=== PATIENT | male | born 1985 | race Caucasian/White ===

== ENCOUNTER 2020-12-14 18:13 | Emergency (ER) | payer MEDICAID, SELFPAY ==
--- NOTE | ~2020-12-14 | XR_ITS ---
EXAMINATION: RIGHT WRIST CLINICAL INFORMATION: Swelling COMPARISON: Right hand August 08, 2013 TECHNIQUE: 4 views right wrist FINDINGS: No fracture. No dislocation. Bone and joint are normal. XR/XR hand wrist RT IMPRESSION: Normal right wrist.
[2020-12-14 18:17] VITALS: BP 139/73; PULSE 96; RESP 18; TEMP 37.3; O2SAT 97; BMI 29.0
[2020-12-14] MEDS: cephALEXin 500 MG CAPSULE PO (20:59)
[2020-12-14] MEDS: Diphth,Pertus(ACell),Tet Adult 0.5 ML SYRINGE IM (21:00)
--- NOTE | 2020-12-14 21:17 | ED_ITS ---
HPI - Skin/Abscess/Foreign Bdy General Chief complaint: Skin/Abscess/Foreign Body Stated complaint: bacteria on hand Time Seen by Provider: 12/14/20 20:43 History of Present Illness HPI narrative: Patient complains of pain redness and swelling to the back of the right hand for several days, he says there were small pimples on the back of his hand he squeezed them and now it got swollen and is draining pus he denies any fever or chills Related Data Previous Rx's Medication Instructions Recorded cephalexin 500 mg tablet 500 mg PO QID 7 Days #28 tab 12/14/20 cephalexin 500 mg tablet 500 mg PO QID 7 Days #28 tab 12/14/20 doxycycline hyclate 100 mg capsule 100 mg PO BID 7 Days #14 cap 12/14/20 doxycycline hyclate 100 mg capsule 100 mg PO BID 7 Days #14 cap 12/14/20 ibuprofen 600 mg tablet 600 mg PO Q6H PRN #20 tab 12/14/20 ibuprofen 600 mg tablet 600 mg PO Q6H PRN #20 tab 12/14/20 oxycodone 5 mg tablet 5 mg PO Q6H PRN #7 tab 12/14/20 oxycodone 5 mg tablet 5 mg PO Q6H PRN #7 tab 12/14/20 Allergies Allergy/AdvReac Type Severity Reaction Status Date / Time SEAFOOD Allergy Unknown HIVES Uncoded 01/12/20 16:49 Review of Systems Review of Systems: Positive for right hand redness pain and swelling Negatives are no fever no chills no dizziness no weakness no headache no neck pain no shortness of breath no numbness weakness or tingling Yes all other systems are reviewed and are negative [facility] Past Medical History Source: nursing notes reviewed Social History Social History Advance Directives: No Physical Exam Vital Signs: Vital Signs: Last Vital Signs Temp 99.1 F 12/14/20 18:17 Pulse 96 12/14/20 18:17 Resp 18 12/14/20 18:17 BP 139/73 12/14/20 18:17 Pulse Ox 97 12/14/20 18:17 Body Mass Index 29.0 General appearance is no acute distress Head is normocephalic atraumatic Neck is supple Respiratory no distress The right hand has dorsal swelling redness and tenderness with pus oozing from a small wound proximal to the 5th metacarpal, there is full range of motion in the wrist and in the fingers, no limit to extension or flexion and neurovascular intact distal Other extremities normal Neuro no focal motor or sensory deficits Course Course Course Narrative: Case was discussed with attending physician juliana who saw and examined the patient He agreed that wound is draining and there is no obvious fluctuance and there was no need for further incision and drainage, there is no evidence of septic arthritis in the wrist or the hand, no evidence of tenosynovitis, no fever and plan is for patient to do frequent warm soaks to draw out the pus, and antibiotics and recheck in 2 days Patient is discharged Discharge Plan Discharge Clinical Impression: Cellulitis Patient Disposition: Home, Self-Care Additional Instructions: The infection on the back of your hand is draining pus Soak frequently in warm water with Epsom salts to help bring out the pus Return to the ER in 2 days for recheck, or hand Dr. Del Angel office if they are available But wound should be recheck either here in the ER or at Malia Mcintosh's office in 2 days Return to the ER any time for increased pain and swelling, spreading redness, red stripe up your arm, fever, any worse condition or any concerns Prescriptions: New doxycycline hyclate 100 mg capsule 100 mg PO BID 7 Days Qty: 14 RF: 0 cephalexin 500 mg tablet 500 mg PO QID 7 Days Qty: 28 RF: 0 oxycodone 5 mg tablet 5 mg PO Q6H PRN (Reason: pain) Qty: 7 RF: 0 ibuprofen 600 mg tablet 600 mg PO Q6H PRN (Reason: pain) Qty: 20 RF: 0 doxycycline hyclate 100 mg capsule 100 mg PO BID 7 Days Qty: 14 RF: 0 cephalexin 500 mg tablet 500 mg PO QID 7 Days Qty: 28 RF: 0 ibuprofen 600 mg tablet 600 mg PO Q6H PRN (Reason: pain) Qty: 20 RF: 0 oxycodone 5 mg tablet 5 mg PO Q6H PRN (Reason: pain) Qty: 7 RF: 0 Referrals: Zainab Del Angel MD [Physician] - 2 days (Right dorsal hand infection for wound check) Stand Alone Forms: Work/School Release Interventions: ED Discharge Assessment Last Done: 12/14/20 21:37 Discharge Date/Time: 12/14/20 21:40
== END 2020-12-14 21:40 | disposition home or self-care (01) ==
PROVIDERS: Emergency Provider Emergency Medicine
DX: L03.113 Cellulitis of right upper limb (principal); M79.641 Pain in right hand
CPT/HCPCS: 73110; 73130; 87071; 87077; 87186; 87205; 90471; 90715; 99284

== ENCOUNTER 2020-12-27 18:04 | Emergency (ER) | payer MEDICAID, SELFPAY ==
[2020-12-27 18:58] LABS: COVID-19 Test Positive (Negative)
[2020-12-27 19:16] VITALS: BP 128/63; PULSE 88; RESP 18; TEMP 37.1; O2SAT 99; BMI 28.0
--- NOTE | 2020-12-27 19:52 | ED_ITS ---
HPI - URI/Sore Throat General Chief Complaint: Upper Respiratory Symptoms Stated Complaint: covid like Time Seen by Provider: 12/27/20 19:50 Source: patient Mode of arrival: ambulatory Limitations: no limitations History of Present Illness HPI Narrative: Patient with fever low-grade cough tiredness for last 3 days other family member positive for COVID patient not vaccinated against COVID-19 denies any shortness of breath saturating 99% on room air Related Data Previous Rx's Medication Instructions Recorded cephalexin 500 mg tablet 500 mg PO QID 7 Days #28 tab 12/14/20 cephalexin 500 mg tablet 500 mg PO QID 7 Days #28 tab 12/14/20 doxycycline hyclate 100 mg capsule 100 mg PO BID 7 Days #14 cap 12/14/20 doxycycline hyclate 100 mg capsule 100 mg PO BID 7 Days #14 cap 12/14/20 ibuprofen 600 mg tablet 600 mg PO Q6H PRN #20 tab 12/14/20 ibuprofen 600 mg tablet 600 mg PO Q6H PRN #20 tab 12/14/20 oxycodone 5 mg tablet 5 mg PO Q6H PRN #7 tab 12/14/20 oxycodone 5 mg tablet 5 mg PO Q6H PRN #7 tab 12/14/20 Allergies Allergy/AdvReac Type Severity Reaction Status Date / Time SEAFOOD Allergy Unknown HIVES Uncoded 01/12/20 16:49 Review of Systems Review of Systems: Yes all other systems are reviewed and are negative [facility] Past Medical History Medical History Hepatitis Latent tuberculosis Social History Social History Advance Directives: No Physical Exam Vital Signs: Vital Signs: Last Vital Signs Temp 98.7 F 12/27/20 19:16 Pulse 88 12/27/20 19:16 Resp 18 12/27/20 19:16 BP 128/63 12/27/20 19:16 Pulse Ox 99 12/27/20 19:16 Body Mass Index 28.0 Appearance: Alert. Oriented X3. No acute distress. ENT: Pharynx normal. Oral Mucosa moist Neck: Normal inspection. Neck supple. CVS: Normal heart rate and rhythm. Pulses normal. Respiratory: No respiratory distress. Equal air entry bilateral, no wheezing/rales/rhonchi Abdomen: Soft and nontender. Skin: Skin warm and dry. Normal skin color. Normal skin turgor. Extremities: No lower extremity edema. No calf tenderness Neuro: Oriented X 3. MDM - URI/Sore Throat Lab Data Attestation: I reviewed the patient's lab results. Labs: Lab Results 12/27/20 Range/Units 18:40 COVID-19 (DEBBI) Positive A (Negative) COVID-19 Clin Com See Note Discharge Plan Discharge Clinical Impression: COVID-19 Patient Disposition: Home, Self-Care Instructions: COVID-19 (Coronavirus Disease 2019) (ED) Additional Instructions: Self isolate as advised for 2 weeks Drink plenty of fluids Tylenol for fever and pain Prescriptions: No Action doxycycline hyclate 100 mg capsule 100 mg PO BID 7 Days Qty: 14 RF: 0 cephalexin 500 mg tablet 500 mg PO QID 7 Days Qty: 28 RF: 0 oxycodone 5 mg tablet 5 mg PO Q6H PRN (Reason: pain) Qty: 7 RF: 0 ibuprofen 600 mg tablet 600 mg PO Q6H PRN (Reason: pain) Qty: 20 RF: 0 doxycycline hyclate 100 mg capsule 100 mg PO BID 7 Days Qty: 14 RF: 0 cephalexin 500 mg tablet 500 mg PO QID 7 Days Qty: 28 RF: 0 ibuprofen 600 mg tablet 600 mg PO Q6H PRN (Reason: pain) Qty: 20 RF: 0 oxycodone 5 mg tablet 5 mg PO Q6H PRN (Reason: pain) Qty: 7 RF: 0 Interventions: ED Discharge Assessment Last Done: 12/27/20 20:08 Discharge Date/Time: 12/27/20 20:11
== END 2020-12-27 20:11 | disposition home or self-care (01) ==
PROVIDERS: Emergency Provider Internal Medicine
DX: U07.1 COVID-19 (principal); R05 Cough; Z79.899 Other long term (current) drug therapy
CPT/HCPCS: 36415; 87635; 99283

== ENCOUNTER 2021-06-28 16:31 | Emergency (ER) | payer MEDICAID, SELFPAY ==
--- NOTE | ~2021-06-28 | CT_ITS ---
EXAMINATION: CT head/brain wo con CLINICAL INFORMATION: Reason for Exam confused, altered, strange behavior COMPARISON: CT brain 08/08/2013 TECHNIQUE: Contiguous axial imaging was performed from the skull base to vertex without intravenous contrast. Sagittal and coronal reformatted images were obtained. This CT examination was performed using dose optimization techniques as appropriate, variously including the following: * Automated exposure control * Adjustment of mA and/or kV according to patient size (this includes techniques or standardized protocols for targeted exams where dose is matched to indication/reason for exam; i.e. extremities or head) Use of iterative reconstruction technique DLP: 677 mGy-cm FINDINGS: No acute osseous or soft tissue abnormality. The mastoid air cells and visualized portions of the paranasal sinuses are well aerated. There is no evidence of acute intracranial hemorrhage or territorial infarction. No abnormal mass effect or midline shift is seen. [place] to white matter differentiation is well preserved. No extra-axial fluid collections are identified. No hydrocephalus. CT/CT head/brain wo con IMPRESSION: 1. No acute intracranial abnormality.
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
[2021-06-28 17:14] VITALS: BP 111/84; PULSE 105; RESP 18; TEMP 37.4; O2SAT 100; BMI 23.3
[2021-06-28 17:39] LABS: COVID-19 Test Negative (Negative)
[2021-06-28] MEDS: Activated charcoaL 50 GM/240 ML ORAL.SUSP PO (17:39)
[2021-06-28 18:03] LABS: MANUAL DIFF FLAG NO
[2021-06-28 18:06] LABS: Basophils Absolute Auto 0.1 X10*3/uL (0.0-0.2); Basophils Percent Auto 0.6 % (0-2); Eosinophils Absolute Auto 0.1 X10*3/uL (0.0-0.4); Hematocrit 38.7 % (42.0-52.0); Hemoglobin 13.4 g/dl (14.0-18.0); Imm Gran Abs Auto 0.02 X10*3/uL (0.00-0.03); Imm Gran Pct Auto 0.3 % (0.0-0.4); Lymphocytes Absolute Auto 2.9 X10*3/uL (1.2-4.9); Lymphocytes Percent Auto 37.5 % (20-40); Mean Corpuscular HGB Conc 34.6 g/dl (31.0-36.0); Mean Corpuscular Hemoglobin 29.8 pg (27.0-33.0); Mean Platelet Volume 9.1 fL (9.4-12.4); Monocytes Absolute Auto 0.6 X10*3/uL (0.1-1.2); Monocytes Percent Auto 8.1 % (2-11); Neutrophils Percent Auto 52.5 % (45-73); Platelet Count 262 X10*3/uL (160-400); Red Cell Distribution Width 11.9 % (11.0-16.0); White Blood Count 7.7 X10*3/uL (4.8-10.8)
[2021-06-28 18:13] LABS: INTERNATIONAL NORM RATIO 1.2 (0.9-1.1); Prothrombin Time 13.4 SEC (9.9-13.0)
[2021-06-28] MEDS: Phytonadione (Vit K1) Oral 10 MG/ML AMPUL 5 MG PO (18:19)
[2021-06-28 18:22] LABS: Ethanol < 10 mg/dL
[2021-06-28 18:25] LABS: Acetaminophen LAB < 1 mcg/mL (<30); Alanine Aminotransferase 51 U/L (0-40); Albumin Level 4.7 g/dL (3.5-5.0); Alkaline Phosphatase 80 U/L (39-117); Anion Gap 14 (12-20); Aspartate Amino Transferase 34 U/L (5-37); Bilirubin Direct 0.4 mg/dL (0.0-0.5); Bilirubin Total 0.9 mg/dL (0.0-1.0); Blood Urea Nitrogen 21 mg/dL (9-16); Carbon Dioxide 26 mmol/L (22-29); Chloride 100 mmol/L (96-108); Creatinine Clr Calc Pharmacy 101.2; Estimated Glomerular Filt Rate > 60; Glucose Random 69 mg/dL (60-115); Magnesium 2.4 mg/dL (1.6-2.6); Potassium 3.9 mmol/L (3.3-5.1); Salicylate < 5.0 mg/dL (15-30); Sodium 136 mmol/L (135-145)
[2021-06-28] MEDS: LORazepam 1 MG TABLET 2 MG PO (18:32)
[2021-06-28 19:00] LABS: Appearance Urine CLEAR; Color Urine YELLOW; Glucose Urine UA NEG (NEG); Leukocyte Esterase Urine NEG (NEG); Nitrite Urine NEG (NEG); Specific Gravity - Urine 1.015 (1.005-1.025); Urine Blood NEG (NEG); Urine Ketones 15 MG/DL (NEG); Urine Protein NEG (NEG-TRACE)
[2021-06-28 19:10] LABS: Amphetamine Screen Urine Not Detected (Not Detect); Barbiturates, Urine Not Detected (Not Detect); Benzodiazepines Screen Urine Not Detected (Not Detect); Cannabinoid Screen Urine POSITIVE (Not Detect); Cocaine Screen Urine POSITIVE (Not Detect); Fentanyl, urine POSITIVE (Not Detect); Opiate Screen Urine POSITIVE (Not Detect); Phencyclidine Screen Urine Not Detected (Not Detect)
[2021-06-28] MEDS: Ondansetron ODT 4 MG TAB.RAPDIS TRANSLINGU (20:26)
[2021-06-28 21:49] VITALS: BP 101/64; PULSE 77; RESP 18; O2SAT 100
== END 2021-06-28 22:00 | disposition left against medical advice (07) ==
PROVIDERS: Physician Assistant; Emergency Provider Emergency Medicine Emergency Medical Services
DX: F14.150 Cocaine abuse with cocaine-induced psychotic disorder with delusions (principal); F11.19 Opioid abuse with unspecified opioid-induced disorder; F12.19 Cannabis abuse with unspecified cannabis-induced disorder; Z20.822 Contact with and (suspected) exposure to COVID-19; R41.82 Altered mental status, unspecified; Z79.899 Other long term (current) drug therapy
CPT/HCPCS: 36415; 70450; 80048; 80076; 80143; 80179; 80307; 81003; 82077; 83735; 85025; 85610; 85730; 87635; 99283; 99291

== ENCOUNTER 2021-06-29 15:58 | Inpatient (IN) | payer OTHER, MEDICAID, SELFPAY ==
--- NOTE | ~2021-06-29 | CT_ITS ---
EXAMINATION: CT HEAD WITHOUT CONTRAST CLINICAL INFORMATION: Altered mental status. COMPARISON: CT head from 06/28/2021. TECHNIQUE: Contiguous axial imaging was performed from the skull base to vertex without intravenous administration of contrast. This CT examination was performed using dose optimization techniques as appropriate, variously including the following: *Automated exposure control. *Adjustment of mA and/or kV according to patient size (this includes techniques or standardized protocols for targeted exams where dose is matched to indication/reason for exam; i.e. extremities or head). *Use of iterative reconstruction technique. DLP: 715 mGy-cm FINDINGS: There is no evidence of acute intracranial hemorrhage or edematous territorial infarction. There is no abnormal attenuation within the brain parenchyma. Dowell-white matter differentiation is preserved. The ventricles are normal in size and configuration. No evidence for obstructive hydrocephalus. No abnormal mass effect or midline shift. No extra-axial fluid collections. No acute soft tissue or osseous abnormalities. Mild mucosal thickening of the paranasal sinuses. The mastoid air cells and middle ear cavities are clear. CT/CT head/brain wo con IMPRESSION: No evidence of acute intracranial hemorrhage or edematous territorial infarction.
--- NOTE | 2021-06-29 16:14 | ED.PSYCH ---
HPI - Psych General Chief Complaint: ETOH/Substance Use Stated Complaint: SUBSTANCE ABUSE,COMBATIVE Time Seen by Provider: 06/29/21 16:06 Source: EMS and RN notes reviewed Mode of arrival: EMS Limitations: no limitations History of Present Illness HPI Narrative: This is a 36-year-old male past medical history significant for polysubstance abuse presenting to the emergency department via ambulance with police and EMS. Patient was and cough when he came in as he was combative when he was found. Bystander called 911, he was found outside, crawling around in this no, not making sense, appearing to be under the influence of drugs. According to EMS patient mentioned that he gave himself Narcan. And that he has taken a lot of drugs. It was not reported that paraphernalia was found around him. Patient is unable to give me a history as he is most likely under the influence of drugs. He is making noises, rolling around in the bed, squirming around. Not answering any of my questions. At this time I am unable to obtain an accurate review of systems Onset (ago): unknown History of same: Yes Relieving factors: none Exacerbating factors: none Related Data Previous Rx's Medication Instructions Recorded cephalexin 500 mg tablet 500 mg PO QID 7 Days #28 tab 12/14/20 cephalexin 500 mg tablet 500 mg PO QID 7 Days #28 tab 12/14/20 doxycycline hyclate 100 mg capsule 100 mg PO BID 7 Days #14 cap 12/14/20 doxycycline hyclate 100 mg capsule 100 mg PO BID 7 Days #14 cap 12/14/20 ibuprofen 600 mg tablet 600 mg PO Q6H PRN #20 tab 12/14/20 ibuprofen 600 mg tablet 600 mg PO Q6H PRN #20 tab 12/14/20 oxycodone 5 mg tablet 5 mg PO Q6H PRN #7 tab 12/14/20 oxycodone 5 mg tablet 5 mg PO Q6H PRN #7 tab 12/14/20 Allergies Allergy/AdvReac Type Severity Reaction Status Date / Time SEAFOOD Allergy Unknown HIVES Uncoded 01/12/20 16:49 Review of Systems Review of Systems: Unable to obtain due to patient's mental status he is currently under the influence of drugs it appears like. Not making sense. Combative. Yes Unobtainable due to mental status PMFSH Past Medical History Attestation statement: The following information was validated with the patient. Source: old records reviewed and nursing notes reviewed Medical History Hepatitis Latent tuberculosis Social History Social History Advance Directives: No Advance Directives Information Provided: No Physical Exam Vital Signs: Vital Signs: Last Vital Signs Temp 100.3 F 06/29/21 16:22 Pulse 95 06/29/21 16:22 Resp 18 06/29/21 16:22 BP 117/65 06/29/21 16:22 Pulse Ox 100 06/29/21 16:22 BMI result Body Mass Index 29.0 VSS Appearance: Patient awake, alert. Not oriented to person, time or situation. No acute distress.? He appears to be under the influence of drugs. Head: Normocephalic, atraumatic, no step-offs or deformities Eyes: Pupils equal, round and reactive to light.? ENT: Pharynx normal.? Neck: Normal inspection.? Neck supple.? CVS: Normal heart rate and rhythm.? Pulses normal.? Respiratory: No respiratory distress.? Breath sounds normal.? Abdomen: Soft and nontender.? Skin: Skin warm and dry.? Normal skin color.? Normal skin turgor.? Extremities: No lower extremity edema.? No calf ttp. 5/5 strength to bilateral upper and lower extremities Back: No midline tenderness, no C-spine tenderness, full range of motion, no CVA tenderness bilaterally Neuro: Awake, alert, not oriented to person, time or situation. No motor deficit.? No sensory deficit. Unable to accurately assess cranial nerves at this time. Course Reevaluation(s) Reevaluation #1: Patient still altered. He is awake, alert however not answering questions, speaking in word salad. Unable to obtain a full cranial nerve study. At this time I scanned his head even though he had a head scan yesterday will rule out intracranial pathologies. I will also give olanzapine PO, as patient agrees to this could be acute psychosis. Patient continues to refuse laboratory studies Time: 00:07 Reevaluation #2: CT of the head with no acute findings. Time: 00:46 Reevaluation #3: Went to re-evaluate patient. Cranial nerves 2-12 intact. Answering questions appropriately. Following commands. Normal [id number]. Normal tandem gait. Patient is mumbling, he appears to be manic at this time.Olanzapine w/ improvement. Time: 01:07 Additional Reevaluation(s): Toxicology positive for opiates, fentanyl, marijuana, cocaine. COVID negative. Labs pending at this time. CBC appears to be at patient's baseline. Chemistry with no acute electrolyte abnormalities. Transaminases slightly elevated likely secondary to substance abuse. 0151 At this time patient will be placed in physician observation to allow more time to be re-evaluated by the behavioral health team. Initially when the behavioral health team came to evaluate the patient patient was not able to the speak to them and answer questions appropriately. They will come back tomorrow morning to evaluate the patient. At time evaluation was started patient common cooperative. No acute distress. Significant improvement after administration of Zyprexa. Physical examination cranial nerves 2-12 intact neuro nonfocal regular rate and rhythm lungs-clear. Will continue to monitor MDM - Psych MDM Narrative Medical decision making narrative: 1617 36 yo m presents w/ ems and PD in handcuffs due to him being combative, rolling around the streets in snow and just shorts. Demonstrating a retic behavior, and he is speaking nonsensically. Unable to obtain an accurate review of systems. Will re-evaluate patient at a later time. Upon chart review it appears as though patient was seen here yesterday where he presented with a similar presentation. At that time he was reporting that he drink rat poison. It was also reported that he had not been taking his psych meds. He admits to IV heroin use. And he was also reporting pain to his penis. Yesterday patient decided to leave against medical advice. Upon physical examination patient is awake, alert. He is not oriented to person, place time or situation. He appears to be under the influence of drugs. Rolling around, not making sense, not able to hold a conversation. On my examination respiration rate of 16. Appears to be in no acute distress. Lungs clear. Regular rate and rhythm. Abdomen soft nontender nondistended. Plan at this time is to obtain basic labs, COVID, MOTT Medical Records Attestation: I reviewed the patient's medical records. Lab Data Attestation: I reviewed the patient's lab results. Result diagrams: 06/30/21 01:19 06/30/21 01:19 Labs: Lab Results 06/29/21 06/29/21 06/30/21 Range/Units 16:33 18:57 01:19 WBC 9.3 (4.8-10.8) X10*3/uL RBC 4.40 L (4.60-5.80) X10*6/uL Hgb 13.0 L (14.0-18.0) g/dl Hct 37.9 L (42.0-52.0) % MCV 86.1 (80.0-98.0) fL MCH 29.5 (27.0-33.0) pg MCHC 34.3 (31.0-36.0) g/dl RDW 12.0 (11.0-16.0) % Plt Count 264 (160-400) X10*3/uL MPV 8.9 L (9.4-12.4) fL Immature Gran % (Auto) 0.3 (0.0-0.4) % Neut % (Auto) 43.6 L (45-73) % Lymph % (Auto) 41.6 H (20-40) % [place] % (Auto) 11.5 H (2-11) % Eos % (Auto) 2.6 (0-4) % Baso % (Auto) 0.4 (0-2) % Lymph # (Auto) 3.9 (1.2-4.9) X10*3/uL [place] # (Auto) 1.1 (0.1-1.2) X10*3/uL Eos # (Auto) 0.2 (0.0-0.4) X10*3/uL Baso # (Auto) 0.0 (0.0-0.2) X10*3/uL Abs Immat Gran (auto) 0.03 (0.00-0.03) X10*3/uL Absolute Neuts (auto) 4.1 (2.0-8.3) x10*3/uL Absolute Nucleated RBC 0.000 (0.0-0.012) X10*3/uL Nucleated RBC % (auto) 0.0 (0.0-0.2) /100WBC Sodium (135-145) mmol/L Potassium (3.3-5.1) mmol/L Chloride (96-108) mmol/L Carbon Dioxide (22-29) mmol/L Anion Gap (12-20) BUN (9-16) mg/dL Creatinine (0.5-1.4) mg/dL Estim Creat Clear Calc Estimated GFR Random Glucose (60-115) mg/dL Calcium (8.4-10.2) mg/dL Total Bilirubin (0.0-1.0) mg/dL AST (5-37) U/L ALT (0-40) U/L Alkaline Phosphatase (39-117) U/L Total Protein (6.5-8.0) g/dL Albumin (3.5-5.0) g/dL Urine Opiates Screen POSITIVE H (Not Detect) Urine Fentanyl Screen POSITIVE H (Not Detect) Ur Barbiturates Screen Not Detected (Not Detect) Ur Phencyclidine Scrn Not Detected (Not Detect) Ur Amphetamines Screen Not Detected (Not Detect) U Benzodiazepines Scrn Not Detected (Not Detect) Urine Cocaine Screen POSITIVE H (Not Detect) U Marijuana (THC) Screen POSITIVE H (Not Detect) COVID-19 (DEBBI) Negative (Negative) COVID-19 Clin Com See Note 06/30/21 Range/Units 01:19 WBC (4.8-10.8) X10*3/uL RBC (4.60-5.80) X10*6/uL Hgb (14.0-18.0) g/dl Hct (42.0-52.0) % MCV (80.0-98.0) fL MCH (27.0-33.0) pg MCHC (31.0-36.0) g/dl RDW (11.0-16.0) % Plt Count (160-400) X10*3/uL MPV (9.4-12.4) fL Immature Gran % (Auto) (0.0-0.4) % Neut % (Auto) (45-73) % Lymph % (Auto) (20-40) % [place] % (Auto) (2-11) % Eos % (Auto) (0-4) % Baso % (Auto) (0-2) % Lymph # (Auto) (1.2-4.9) X10*3/uL [place] # (Auto) (0.1-1.2) X10*3/uL Eos # (Auto) (0.0-0.4) X10*3/uL Baso # (Auto) (0.0-0.2) X10*3/uL Abs Immat Gran (auto) (0.00-0.03) X10*3/uL Absolute Neuts (auto) (2.0-8.3) x10*3/uL Absolute Nucleated RBC (0.0-0.012) X10*3/uL Nucleated RBC % (auto) (0.0-0.2) /100WBC Sodium 136 (135-145) mmol/L Potassium 4.0 (3.3-5.1) mmol/L Chloride 102 (96-108) mmol/L Carbon Dioxide 25 (22-29) mmol/L Anion Gap 13 (12-20) BUN 17 H (9-16) mg/dL Creatinine 0.85 (0.5-1.4) mg/dL Estim Creat Clear Calc 120.5 Estimated GFR > 60 Random Glucose 109 D (60-115) mg/dL Calcium 9.4 (8.4-10.2) mg/dL Total Bilirubin 1.0 (0.0-1.0) mg/dL AST 49 H D (5-37) U/L ALT 44 H (0-40) U/L Alkaline Phosphatase 72 (39-117) U/L Total Protein 7.5 (6.5-8.0) g/dL Albumin 4.4 (3.5-5.0) g/dL Urine Opiates Screen (Not Detect) Urine Fentanyl Screen (Not Detect) Ur Barbiturates Screen (Not Detect) Ur Phencyclidine Scrn (Not Detect) Ur Amphetamines Screen (Not Detect) U Benzodiazepines Scrn (Not Detect) Urine Cocaine Screen (Not Detect) U Marijuana (THC) Screen (Not Detect) COVID-19 (DEBBI) (Negative) COVID-19 Clin Com Critical Care Time Critical Care Time Critical Care Time: No Discharge Plan Discharge Clinical Impression: Manic behavior, Polysubstance abuse Patient Disposition: Still a Patient Prescriptions: No Action doxycycline hyclate 100 mg capsule 100 mg PO BID 7 Days Qty: 14 0RF cephalexin 500 mg tablet 500 mg PO QID 7 Days Qty: 28 0RF oxycodone 5 mg tablet 5 mg PO Q6H PRN (Reason: pain) Qty: 7 0RF ibuprofen 600 mg tablet 600 mg PO Q6H PRN (Reason: pain) Qty: 20 0RF doxycycline hyclate 100 mg capsule 100 mg PO BID 7 Days Qty: 14 0RF cephalexin 500 mg tablet 500 mg PO QID 7 Days Qty: 28 0RF ibuprofen 600 mg tablet 600 mg PO Q6H PRN (Reason: pain) Qty: 20 0RF oxycodone 5 mg tablet 5 mg PO Q6H PRN (Reason: pain) Qty: 7 0RF
[2021-06-29 16:22] VITALS: BP 117/65; PULSE 95; RESP 18; TEMP 37.9; O2SAT 100; BMI 29.0
[2021-06-29 16:58] LABS: COVID-19 Test Negative (Negative)
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
[2021-06-29 19:21] LABS: Amphetamine Screen Urine Not Detected (Not Detect); Barbiturates, Urine Not Detected (Not Detect); Benzodiazepines Screen Urine Not Detected (Not Detect); Cannabinoid Screen Urine POSITIVE (Not Detect); Cocaine Screen Urine POSITIVE (Not Detect); Fentanyl, urine POSITIVE (Not Detect); Opiate Screen Urine POSITIVE (Not Detect); Phencyclidine Screen Urine Not Detected (Not Detect)
[2021-06-29] MEDS: Nicotine Polacrilex 2 MG GUM BUCCAL (19:38)
--- NOTE | 2021-06-30 | ECG_ITS ---
Test Reason : med clearance Blood Pressure : / mmHG Vent. Rate : 060 BPM Atrial Rate : 060 BPM P-R Int : 150 ms QRS Dur : 090 ms QT Int : 408 ms P-R-T Axes : 069 048 031 degrees QTc Int : 408 ms Normal sinus rhythm Normal ECG When compared with ECG of 19-JUN-2015 05:18, No significant change was found Referred By: Jacky Hedrick Electronically Signed By:GIDEON ZULETA MD
[2021-06-30] MEDS: OLANZapine 10 MG TABLET PO (00:13)
[2021-06-30 01:24] LABS: Basophils Percent Auto 0.4 % (0-2); Eosinophils Absolute Auto 0.2 X10*3/uL (0.0-0.4); Eosinophils Percent Auto 2.6 % (0-4); Hematocrit 37.9 % (42.0-52.0); Imm Gran Abs Auto 0.03 X10*3/uL (0.00-0.03); Imm Gran Pct Auto 0.3 % (0.0-0.4); Lymphocytes Absolute Auto 3.9 X10*3/uL (1.2-4.9); Lymphocytes Percent Auto 41.6 % (20-40); MANUAL DIFF FLAG NO; Mean Corpuscular HGB Conc 34.3 g/dl (31.0-36.0); Mean Corpuscular Hemoglobin 29.5 pg (27.0-33.0); Mean Corpuscular Volume 86.1 fL (80.0-98.0); Mean Platelet Volume 8.9 fL (9.4-12.4); Monocytes Absolute Auto 1.1 X10*3/uL (0.1-1.2); Monocytes Percent Auto 11.5 % (2-11); Neutrophils Absolute Auto 4.1 x10*3/uL (2.0-8.3); Neutrophils Percent Auto 43.6 % (45-73); Platelet Count 264 X10*3/uL (160-400); White Blood Count 9.3 X10*3/uL (4.8-10.8)
[2021-06-30 01:45] LABS: Alanine Aminotransferase 44 U/L (0-40); Albumin Level 4.4 g/dL (3.5-5.0); Alkaline Phosphatase 72 U/L (39-117); Anion Gap 13 (12-20); Aspartate Amino Transferase 49 U/L (5-37); Blood Urea Nitrogen 17 mg/dL (9-16); Calcium 9.4 mg/dL (8.4-10.2); Carbon Dioxide 25 mmol/L (22-29); Chloride 102 mmol/L (96-108); Creatinine Clr Calc Pharmacy 120.5; Estimated Glomerular Filt Rate > 60; Glucose Random 109 mg/dL (60-115); Sodium 136 mmol/L (135-145); Total Protein 7.5 g/dL (6.5-8.0)
[2021-06-30] MEDS: Acetaminophen 325 MG TABLET 975 MG PO (02:06)
--- NOTE | 2021-06-30 04:59 | PC.NURSE ---
Patient slept through the night, no distress observed/reported, head CT negative, behavior non concerning at this time but thought process disorganized, per N patient not coherent, assessment postponed to morning with hope the patient will be more coherent, one time Olanzapine 10 mg po administered at 0013 with + effect, will continue to monitor.
[2021-06-30 06:30] VITALS: RESP 18
--- NOTE | 2021-06-30 10:29 | PC.NURSE ---
JERICHO saw pt today. Pt with section 12, per JERICHO pt is a bed search at this time. Pt resting in the bed NAD.
--- NOTE | 2021-06-30 13:21 | PC.NURSE ---
PATIENT UP AT BEDSIDE EATING LUNCH AWARE OF PLAN TO BE INPATIENT BED SEARCH.
--- NOTE | 2021-06-30 13:36 | ECG_ITS ---
Test Reason : MED CLEARANCE Blood Pressure : / mmHG Vent. Rate : 059 BPM Atrial Rate : 059 BPM P-R Int : 146 ms QRS Dur : 086 ms QT Int : 396 ms P-R-T Axes : 051 072 040 degrees QTc Int : 392 ms Sinus bradycardia with sinus arrhythmia Otherwise normal ECG When compared with ECG of 30-JUN-2021 11:16, No significant change was found Referred By: Jacky Hedrick Electronically Signed By:GIDEON ZULETA MD
[2021-06-30 16:08] VITALS: PULSE 54
[2021-06-30 16:15] VITALS: BP 150/93; PULSE 52; TEMP 36.2; O2SAT 100
[2021-06-30] MEDS: methADONE HCl 20 MG/2 ML ORAL.CONC PO (17:21)
--- NOTE | 2021-06-30 17:39 | MHC.RECOVSUP ---
Recovery Support note: Patient is a 36 year old [place] speaking male who presented to [facility] [place] ED under the influence of opiates and cocaine. Patient was evaluated by [facility] and is currently awaiting an inpatient psychiatric bed. This underwriter met with patient with an [facility] lang interpreter to discuss substance use and treatment options. Patient reports some withdrawal at this time and reports he is connected with [facility] on [address] and that he receives 120mg. Patient reports he was last dosed yesterday. This underwriter attempted to verify dose however was unable to at this time. Discussed with ED provider and Subha Thomas CHEMICAL TREATMENT OPERATOR. Plan for patient to receive 20mg at this time and his dose will be confirmed tomorrow morning. Patient is agreeable at this time. Patient reported to this underwriter that he wants to go home and that he can leave when he wants to. Explained the situation and admission process to patient however he continued to insist that he can leave when he wants to. RN and ED provider aware. This underwriter will confirm patient's methadone dose tomorrow morning.
[2021-06-30] MEDS: Nicotine Polacrilex 2 MG GUM BUCCAL (18:49)
[2021-06-30 22:00] VITALS: BP 103/55; PULSE 55; RESP 16; TEMP 36.4; O2SAT 100
--- NOTE | 2021-07-01 07:03 | PC.NURSE ---
Patient slept through the night, no distress observed/reported, behavior appropriate, pending methadone verification day nurse aware, disposition per N is section 12 inpatient bed search, will continue to monitor, VSS, will continue to monitor
[2021-07-01] MEDS: methADONE HCl 20 MG/2 ML ORAL.CONC 120 MG PO (11:48)
--- NOTE | 2021-07-01 14:44 | PC.NURSE ---
nurse to nurse given to m5 rn demetrio
[2021-07-01 17:34] VITALS: BP 129/62; PULSE 55; RESP 16; TEMP 36.6; O2SAT 98
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
--- NOTE | 2021-07-01 18:05 | PC.NURSE ---
Patient is alert and oriented x 4 verbalized understanding of admission to m5 escorted to m5 via wheelchair, security and with belongings
[2021-07-01 19:04] VITALS: BP 150/92; PULSE 85
[2021-07-01] MEDS: Nicotine Polacrilex 2 MG GUM 4 MG BUCCAL ×2 (19:24→22:47)
--- NOTE | 2021-07-01 19:32 | PC.ADMIT ---
Pt is a 36 year old single, Urdu speaking male who present to from [facility] ED at aprrox 1800 on a cv status. Pt is covid - Utox + for opiates, fentanyl, cocaine and THC. EKG is normal sinus. Pt is on methadone and it has been verified. During admit, Pt was avoidant on questions that referred to SI/HI. Pt reported AH/VH, then mentioned he was unsure. Pt mentioned that he lives with his girlfriend in an apartment. Pt mentioned he had high anxiety and depression. Per per chart, male arrived to the ED via ambulance for evaluation of psychotic symptoms and suicidality for the past week. Pt is endoring SI with several plans and recent attempts, hallucinations, and has been paranid, delusional, with disorganized thoughts and behavior. He has no documented hx of psych admissions and is not previously known to the CARE team or in psych. Pt requested a therapist and help with getting a primary care doctor. Provider called for orders and notified of admission. Stat treatment plans and monitor for safety.
[2021-07-01] MEDS: OLANZapine 10 MG TABLET PO (22:46)
[2021-07-01] MEDS: traZODone HCL 50 MG TABLET PO (22:47)
[2021-07-01] MEDS: LORazepam 1 MG TABLET PO (22:47)
[2021-07-01] MEDS: Nicotine Polacrilex 2 MG GUM BUCCAL (22:47)
--- NOTE | 2021-07-02 03:33 | PC.NURSE ---
Pt arrived on unit 1800, signed a 3 day notice. Leonela Solo and Dr. Self notified.
[2021-07-02 06:00] VITALS: BP 128/65; PULSE 68; RESP 18; TEMP 36.6; O2SAT 100
[2021-07-02] MEDS: methADONE HCl 20 MG/2 ML ORAL.CONC 120 MG PO (08:41)
[2021-07-02] MEDS: Multivitamin TABLET 1 TAB PO (08:41)
[2021-07-02 08:49] LABS: Estimated Average Glucose 103 mg/dL; Hemoglobin A1c % 5.2 %
[2021-07-02 09:07] LABS: Cholesterol 130 mg/dL; HDL Cholesterol 27 mg/dL; LDL Cholesterol Calculated 71 mg/dl; Magnesium 2.4 mg/dL (1.6-2.6); Triglycerides 164 mg/dL
[2021-07-02 09:31] LABS: Free T4 (Free Thyroxine) 1.05 ng/dL (0.71-1.85); Thyroid Stimulating Hormone 1.39 uIU/mL (0.32-4.0)
[2021-07-02 09:42] LABS: Folate 12.2 ng/mL (> or = 4.0); Vitamin B12 406 pg/mL (200-900)
[2021-07-02 13:45] VITALS: BP 130/64; PULSE 62
[2021-07-02] MEDS: Nicotine Polacrilex 2 MG GUM BUCCAL (14:35)
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
[2021-07-02 18:00] VITALS: BP 128/68; PULSE 66; RESP 16; TEMP 36.4
[2021-07-02] MEDS: Nicotine Polacrilex 2 MG GUM 4 MG BUCCAL (20:10)
[2021-07-02] MEDS: OLANZapine 10 MG TABLET PO (21:45)
[2021-07-03 06:00] VITALS: BP 117/66; PULSE 58; RESP 16; TEMP 36.3; O2SAT 98
[2021-07-03 08:00] VITALS: PULSE 58
[2021-07-03] MEDS: Multivitamin TABLET 1 TAB PO (09:20)
--- NOTE | 2021-07-03 10:41 | HO.PSYCHPN ---
Subjective Subjective Date of Service: 07/03/21 Reason For Visit: psychosis Interim History: pt reports he's good' He still has AH but says they are less intense and that he's able to ignore them. He denies any SI or HI. Pt says he feels ready to go home and that he will continue treatment as an outpt.He has no complaints and no requests. Staff discussed case and agree that pt is now much more organized and linear in speech. Pt reports that he is sleeping well enough; denies nightmares. He does agree to increase in zyprexa to see if that can lower AH some more. Pt's 3 day notice is due tomorrow. Diagnostics Vital Signs (24Hr): Vital Signs - 24 hr 07/02/21 13:45 07/02/21 18:00 07/03/21 06:00 Temperature 97.6 F 97.3 F Pulse Rate 62 66 58 Respiratory Rate 16 16 Blood Pressure 130/64 128/68 117/66 Pulse Oximetry 98 BMI result Body Mass Index 29.0 Labs Results: 06/30/21 01:19 06/30/21 01:19 Labs: Laboratory Results - last 48 hr 07/02/21 07/02/21 07/02/21 08:08 08:08 08:08 Estimat Average Glucose 103 Hemoglobin A1c % 5.2 Magnesium 2.4 Triglycerides 164 Cholesterol 130 LDL Cholesterol, Calc 71 HDL Cholesterol 27 Vitamin B12 406 Folate 12.2 TSH 1.39 Free T4 1.05 Imaging Radiology Impressions: ITS Impressions Head CT 06/30/21 00:05 IMPRESSION: No evidence of acute intracranial hemorrhage or edematous territorial infarction. Medications Medications Current Medications Acetaminophen (Acetaminophen 325 Mg Tablet) 650 mg PO Q6H PRN PRN Reason: Headache/Pain Mild Scale (1-3) Al Hydroxide/Mg Hydroxide (Magnesium Hydrox/Alum Hydrox 30 Ml Oral.Susp) 30 ml PO Q6H PRN PRN Reason: Heartburn/Nausea Haloperidol Lactate (Haloperidol Lactate 10 Mg/5 Ml Oral.Conc) 5 mg PO Q4H PRN PRN Reason: severe agitation Lorazepam (Lorazepam 1 Mg Tablet) 1 mg PO Q4H PRN PRN Reason: severe agitation Last Admin: 07/01/21 22:47 Dose: 1 mg Documented by: Magnesium Hydroxide (Milk Of Magnesia 30 Ml Oral.Susp) 30 ml PO DAILY PRN PRN Reason: Constipation Methadone HCl (Methadone Hcl 20 Mg/2 Ml Oral.Conc) 120 mg PO DAILY JOHN Multivitamins/Vitamin C (Multivitamin Tablet) 1 tab PO DAILY JOHN Last Admin: 07/03/21 09:20 Dose: 1 tab Documented by: Nicotine Polacrilex (Nicotine Polacrilex 2 Mg Gum) 2 mg BUCCAL QID PRN PRN Reason: nicotine cravings Last Admin: 07/02/21 14:35 Dose: 2 mg Documented by: Nicotine Polacrilex (Nicotine Polacrilex 2 Mg Gum) 4 mg BUCCAL Q2H PRN PRN Reason: nicotine withdrawal Last Admin: 07/02/21 20:10 Dose: 4 mg Documented by: Olanzapine (Olanzapine 10 Mg Tablet) 10 mg PO BEDTIME JOHN Last Admin: 07/02/21 21:45 Dose: 10 mg Documented by: Trazodone HCl (Trazodone Hcl 50 Mg Tablet) 50 mg PO BEDTIME PRN PRN Reason: Insomnia Last Admin: 07/01/21 22:47 Dose: 50 mg Documented by: Allergies Allergies Allergy/AdvReac Type Severity Reaction Status Date / Time SEAFOOD Allergy Unknown HIVES Uncoded 01/12/20 16:49 Assessment & Plan Assessment & Plan (1) Schizoaffective disorder, depressive type: Status: Acute Code(s): F25.1 - Schizoaffective disorder, depressive type (2) Cocaine use disorder: Status: Acute Code(s): F14.10 - Cocaine abuse, uncomplicated (3) Opioid use disorder, moderate, in early remission, on maintenance therapy: Status: Acute Code(s): F11.21 - Opioid dependence, in remission (4) Post traumatic stress disorder (PTSD): Status: Acute Code(s): F43.10 - Post-traumatic stress disorder, unspecified Plan Sixto is a 36 y.o. Male who carries a dx of Polysubstance Use DO. He presented to [facility] ED on 06/28/21 via ambulance with police and EMS after he was found outside, not making sense, appearing to be under the influence of drugs. He reportedly had altercation with a friend, threatening behavior. Has been psychotic, responding to internal stimuli, not eating or sleeping.?His utox was positive for cocaine, heroin, fentanyl, and cannabis. On MAT, methadone. Pt denies hx of IPLOC or past psychotropic med trials. Has been struggling with sobriety x 1 yr. 07/02 pt reports he's better. He is not too interested in talking, but not uncooperative. Denies SI/HI. He's a little vague, but AH seem to be less. Adherent with meds which he says helps 07/03pt reports he's good' He still has AH but says they are less intense and that he's able to ignore them. He denies any SI or HI. Pt says he feels ready to go home and that he will continue treatment as an outpt.He has no complaints and no requests. Staff discussed case and agree that pt is now much more organized and linear in speech. Pt reports that he is sleeping well enough; denies nightmares. ?He does agree to increase in zyprexa to see if that can lower AH some more. Pt's 3 day notice is due tomorrow.?He is tolerating medication which has shown to be effective and he has insight to understand his need for medication. His symptoms have significantly improved. Pt has remained in good behavioral and impulse control and does not rise to the level of involuntary commitment. His request for discharge honored. Plan: 3 day notice increased to olanzapine 15mg QHS for psychotic sx, sleep. Will continue on methadone maintenance. Monitor response to medications. Monitor for safety in the milieu. Discharge on stabilization. Patient seen. Chart reviewed. Discussed with team. Obtain collateral contact info?as needed I spent minutes with the patient and/or on the patient floor today, greater than?50% of which was spent counseling/coordinating care. Patient educated on: medication risk/benefits Informed Consent: understands Reason for contiued inpatient stay Substantial Risk for: stable for discharge
[2021-07-03] MEDS: methADONE HCl 20 MG/2 ML ORAL.CONC 120 MG PO (10:43)
[2021-07-03] MEDS: OLANZapine 2.5 MG TABLET PO (10:51)
[2021-07-03] MEDS: Nicotine Polacrilex 2 MG GUM 4 MG BUCCAL ×3 (13:40→21:41)
[2021-07-03] MEDS: Acetaminophen 325 MG TABLET 650 MG PO (15:42)
--- NOTE | 2021-07-03 21:03 | PM.PSYDC ---
DS: Providers Provider Date of Service: 07/04/21 Date of admission: 07/01/21 14:51 Date of discharge: 07/04/21 Primary care physician: [facility] Admitting clinician: Leilani Whitley Attending physician on discharge: Sharif Self DS: Diagnosis Discharge Diagnosis (1) Schizoaffective disorder, depressive type: Status: Acute (2) Cocaine use disorder: Status: Acute (3) Opioid use disorder, moderate, in early remission, on maintenance therapy: Status: Acute (4) Post traumatic stress disorder (PTSD): Status: Acute DS: Medications Discharge Medications Home Medications: Home Medications Medication Instructions Recorded Confirmed methadone 10 mg/mL oral concentrate 120 mg PO DAILY 07/01/21 07/01/21 Previous Rx's Medication Instructions Recorded nicotine (polacrilex) 2 mg gum 4 mg BUCCAL Q2H PRN 30 Days #100 ea 07/03/21 olanzapine 7.5 mg tablet 15 mg PO BEDTIME 30 Days #60 tab 07/03/21 Mental Status Exam Mental Status Exam Narrative: A&O; tatooed hands, neck, face; unkempt appearance, long hair. adequate eye contact. No Tics or Tremors. No abnormal involuntary movements. Calm, a little guarded, difficult to engage in meaningful conversation but cooperative. Non-pressured speech, non-spontaneous with regular rate and rhythm, normal volume and prosody. No prolonged speech latency or dysarthria. Mood is better affect seems congruent, smiling appropriately; Denies SI/SIB/HI upon inquiry. denies AH at the moment and says it's overall less. Denies delusional thought content. Appears to have thought blocking and possibly intermittently internally preoccuped; No known cognitive or memory impairment. Insight/ Judgment fair. Data Data Completed and Pending Completed studies during hospitalization [Text1]: 06/29/21 06/29/21 06/30/21 16:33 18:57 01:19 WBC 9.3 RBC 4.40 L Hgb 13.0 L Hct 37.9 L MCV 86.1 MCH 29.5 MCHC 34.3 RDW 12.0 Plt Count 264 MPV 8.9 L Immature Gran % (Auto) 0.3 Neut % (Auto) 43.6 L Lymph % (Auto) 41.6 H Archuleta % (Auto) 11.5 H Eos % (Auto) 2.6 Baso % (Auto) 0.4 Lymph # (Auto) 3.9 Archuleta # (Auto) 1.1 Eos # (Auto) 0.2 Baso # (Auto) 0.0 Abs Immat Gran (auto) 0.03 Absolute Neuts (auto) 4.1 Absolute Nucleated RBC 0.000 Nucleated RBC % (auto) 0.0 Sodium Potassium Chloride Carbon Dioxide Anion Gap BUN Creatinine Estim Creat Clear Calc Estimated GFR Random Glucose Estimat Average Glucose Hemoglobin A1c % Calcium Magnesium Total Bilirubin AST ALT Alkaline Phosphatase Total Protein Albumin Triglycerides Cholesterol LDL Cholesterol, Calc HDL Cholesterol Vitamin B12 Folate TSH Free T4 Urine Opiates Screen POSITIVE H Urine Fentanyl Screen POSITIVE H Ur Barbiturates Screen Not Detected Ur Phencyclidine Scrn Not Detected Ur Amphetamines Screen Not Detected U Benzodiazepines Scrn Not Detected Urine Cocaine Screen POSITIVE H U Marijuana (THC) Screen POSITIVE H COVID-19 (DEBBI) Negative COVID-OSSIANIX See Note 06/30/21 07/02/21 07/02/21 01:19 08:08 08:08 WBC RBC Hgb Hct MCV MCH MCHC RDW Plt Count MPV Immature Gran % (Auto) Neut % (Auto) Lymph % (Auto) Archuleta % (Auto) Eos % (Auto) Baso % (Auto) Lymph # (Auto) Archuleta # (Auto) Eos # (Auto) Baso # (Auto) Abs Immat Gran (auto) Absolute Neuts (auto) Absolute Nucleated RBC Nucleated RBC % (auto) Sodium 136 Potassium 4.0 Chloride 102 Carbon Dioxide 25 Anion Gap 13 BUN 17 H Creatinine 0.85 Estim Creat Clear Calc 120.5 Estimated GFR > 60 Random Glucose 109 D Estimat Average Glucose 103 Hemoglobin A1c % 5.2 Calcium 9.4 Magnesium 2.4 Total Bilirubin 1.0 AST 49 H D ALT 44 H Alkaline Phosphatase 72 Total Protein 7.5 Albumin 4.4 Triglycerides 164 Cholesterol 130 LDL Cholesterol, Calc 71 HDL Cholesterol 27 Vitamin B12 Folate TSH 1.39 Free T4 1.05 Urine Opiates Screen Urine Fentanyl Screen Ur Barbiturates Screen Ur Phencyclidine Scrn Ur Amphetamines Screen U Benzodiazepines Scrn Urine Cocaine Screen U Marijuana (THC) Screen COVID-19 (DEBBI) COVID-OSSIANIX 07/02/21 08:08 WBC RBC Hgb Hct MCV MCH MCHC RDW Plt Count MPV Immature Gran % (Auto) Neut % (Auto) Lymph % (Auto) Archuleta % (Auto) Eos % (Auto) Baso % (Auto) Lymph # (Auto) Archuleta # (Auto) Eos # (Auto) Baso # (Auto) Abs Immat Gran (auto) Absolute Neuts (auto) Absolute Nucleated RBC Nucleated RBC % (auto) Sodium Potassium Chloride Carbon Dioxide Anion Gap BUN Creatinine Estim Creat Clear Calc Estimated GFR Random Glucose Estimat Average Glucose Hemoglobin A1c % Calcium Magnesium Total Bilirubin AST ALT Alkaline Phosphatase Total Protein Albumin Triglycerides Cholesterol LDL Cholesterol, Calc HDL Cholesterol Vitamin B12 406 Folate 12.2 TSH Free T4 Urine Opiates Screen Urine Fentanyl Screen Ur Barbiturates Screen Ur Phencyclidine Scrn Ur Amphetamines Screen U Benzodiazepines Scrn Urine Cocaine Screen U Marijuana (THC) Screen COVID-19 (DEBBI) COVID-19 Clin Com Imaging Diagnostic Imaging Impressions Head CT 06/30/21 00:05 IMPRESSION: No evidence of acute intracranial hemorrhage or edematous territorial infarction. DS: Summary Hospital Course Hospital Course: Sixto is a 36 y.o. Male who carries a dx of Polysubstance Use DO. He presented to [facility] on 06/28/21 via ambulance with police and EMS after he was found outside, not making sense, appearing to be under the influence of drugs. He reportedly had altercation with a friend, threatening behavior. Has been psychotic, responding to internal stimuli, not eating or sleeping.?His utox was positive for cocaine, heroin, fentanyl, and cannabis. On MAT, methadone. Pt denies hx of IPLOC or past psychotropic med trials. Has been struggling with sobriety x 1 yr. Patient was started on Zyprexa. Patient was overall reticent but said that he was feeling Better Sleeping well and that SI/HI fully resolved. He said he still had auditory hallucinations but they were less. Patient's speech and behavior became organized and remained so throughout admission. Patient soon signed a 3 day notice saying he wanted to go home and work on treatment as an outpatient. Patient remained mostly to himself however he demonstrated overall good behavior and impulse control while on the unit. He continued to report that his mood was good and that he was feeling safe and stable. He reported that auditory hallucinations remained however they were at a low level unable to be Ignored; he did agree to in increased dose of Zyprexa to see if it could eradicate them. Pt reports that he is sleeping well enough; denies nightmares. ?Pt's 3 day notice became due.?He is tolerating effective medication and he has insight to understand his need for medication.? Pt Was not in imminent risk for harm to self or others and Did not rise to the level of involuntary commitment. His request for discharge honored. Time spent discussing smoking cessation with patient: 3 to 10 minutes Status at Discharge Functional status at discharge: independent ambulation Overall status at discharge: patient is back to baseline Time Spent with Patient Time attestation: Total time spent providing and/or coordinating discharge services: Time spent: Less than 30 minutes Discharge Plan Discharge Patient Disposition: Home, Self-Care Discharge Diagnosis: schizoaffective disorder, depressed type Referrals: Therapy Intake: Harmony Malloy ([facility]) [Other] - 07/11/21 12:00 pm (Telehealth-will call Wendy's phone. ) Psychiatrist: Kirsten Cadena ([facility]) [Other] - 07/17/21 10:00 am (Telehealth- an email will be sent to Wendy with a link to join the video appointment. You will have to download the mary lou [employer]. ) Psychiatrist: Kirsten Cadena ([facility]) [Other] - 08/14/21 1:00 pm (Telehealth- An email will be sent to Wendy with a link to join video appointment. ) Raisa Orellana [Nurse Practitioner] - 07/11/21 2:00 pm (in office) Discharge Medications: New nicotine (polacrilex) 2 mg Gum 4 mg buccal Q2H PRN (Reason: nicotine cravings) 30 Days Qty: 100 0RF olanzapine 7.5 mg Tablet 15 mg PO BEDTIME 30 Days Qty: 60 0RF Continued methadone 10 mg/mL Concentrate 120 mg PO DAILY 0RF Discharge Orders: Discharge Order (Routine); Ordered 07/04/21 Ordered By: Sharif Self Diet: regular diet Activity on Discharge: As tolerated Stand Alone Forms: Patient Portal Discharge page, Community Support Care Plan Goals: Maintain mood and safe behaviors Take medications as prescribed Continue to pursue sobriety Practice coping skills Continue with outpatient providers and reach out to them as needed Health Concerns: Mood stability and behaviors Sobriety Plan of Treatment: Follow up with your PCP, psychiatric provider and other outpatient providers regarding above concerns Take medications as prescribed Assessment: Risk assessment at time of discharge:? Patient was interviewed prior to discharge and found to be fully oriented and without any SI or HI. Patient has insight and demonstrates good judgment in terms of wanting to pursue treatment. Patient is not in imminent risk of harm to self or others and has a safety plan that includes presenting to the closest ER or calling 911 if feeling unsafe.? Patient has been observed closely by nursing and unit staff throughout admission; patient has not engaged in any behaviors that suggest dangerousness to self or others and has demonstrated appropriate behaviors and impulse control Discharge Date/Time: 07/04/21 14:01
[2021-07-03 21:10] VITALS: BP 117/61; PULSE 74; TEMP 36.9
[2021-07-03] MEDS: traZODone HCL 50 MG TABLET PO (22:22)
[2021-07-03] MEDS: OLANZapine 7.5 MG TABLET 15 MG PO (22:22)
[2021-07-04 06:28] LABS: Glucose, Whole Blood 110 mg/dL (60-115)
[2021-07-04] MEDS: methADONE HCl 20 MG/2 ML ORAL.CONC 120 MG PO (08:41)
[2021-07-04] MEDS: Multivitamin TABLET 1 TAB PO (08:41)
[2021-07-04] MEDS: Naloxone HCl Nasal TAKE HOME 4 MG SPRAY NOSTRILALT (08:44)
[2021-07-04] MEDS: Nicotine Polacrilex 2 MG GUM 4 MG BUCCAL (13:02)
== END 2021-07-04 14:01 | disposition home or self-care (01) | DRG 750 ==
LOC: HO.ED 06-30 00:47 → HO.PM5 07-01 15:19
PROVIDERS: Clinical Nurse Specialist Psychiatric/Mental Health, Adult; Physician Assistant; Admitting Provider Psychiatry & Neurology Psychiatry; Emergency Provider Emergency Medicine Emergency Medical Services; Visit Provider Psychiatry & Neurology Psychiatry
DX: F25.1 Schizoaffective disorder, depressive type (principal); F11.20 Opioid dependence, uncomplicated; F14.10 Cocaine abuse, uncomplicated; F17.210 Nicotine dependence, cigarettes, uncomplicated; Z71.6 Tobacco abuse counseling; Z20.822 Contact with and (suspected) exposure to COVID-19; Z91.51 Personal history of suicidal behavior; Z79.899 Other long term (current) drug therapy; F43.10 Post-traumatic stress disorder, unspecified
CPT/HCPCS: 36415; 70450; 80053; 80061; 80307; 82607; 82746; 82947; 83036; 83735; 84439; 84443; 85025; 87635; 93005; 99285

== ENCOUNTER 2021-07-31 12:46 | Emergency (ER) | payer MEDICAID, SELFPAY ==
[2021-07-31 13:24] VITALS: BP 135/76; PULSE 63; RESP 18; TEMP 36.2; O2SAT 95; BMI 27.6
--- NOTE | 2021-07-31 15:03 | ED.PSYCH ---
HPI - Psych General Chief Complaint: Psychiatric Symptoms Stated Complaint: psych eval. Time Seen by Provider: 07/31/21 14:41 Source: patient and family Mode of arrival: ambulatory Limitations: no limitations History of Present Illness HPI Narrative: 36-year-old male with a history of schizoaffective disorder, PTSD, opiate use disorder here with reports of hearing voices. Patient tells me he was recently admitted to inpatient psychiatry. He was discharged on Zyprexa. He feels like he is taking this but it is not helping with his voices. He denies any suicidal or homicidal ideations. He has not followed up with his psychiatrist. No physical complaints Related Data Home Medications Medication Instructions Recorded Confirmed methadone 10 mg/mL oral concentrate 120 mg PO DAILY 07/01/21 07/01/21 Previous Rx's Medication Instructions Recorded nicotine (polacrilex) 2 mg gum 4 mg BUCCAL Q2H PRN 30 Days #100 ea 07/03/21 olanzapine 7.5 mg tablet 15 mg PO BEDTIME 30 Days #60 tab 07/03/21 Allergies Allergy/AdvReac Type Severity Reaction Status Date / Time SEAFOOD Allergy Unknown HIVES Uncoded 01/12/20 16:49 Review of Systems Review of Systems: Yes all other systems are reviewed and are negative Constitutional: Constitutional: Reports no additional constitutional complaints, Denies body ache(s), Denies chills, Denies fever(s), Denies headache(s) and Denies weakness Eyes: Eyes: Reports no additional eye complaints and Denies change in vision ENT: Reports system reviewed and no additional complaints, except as documented, Denies dizziness, Denies headache(s), Denies nasal congestion, Denies nasal discharge and Denies neck pain Cardiovascular: Cardiovascular: Reports no additional cardiovascular complaints, Denies chest pain, Denies leg edema and Denies dyspnea Respiratory: Respiratory: Reports no additional respiratory complaints, Denies cough and Denies dyspnea Gastrointestinal: Gastrointestinal: Reports no additional gastrointestinal complaints, Denies abdominal pain, Denies diarrhea, Denies nausea and Denies vomiting Genitourinary: Genitourinary: Denies urinary incontinence Musculoskeletal: Musculoskeletal: Reports no additional musculoskeletal complaints, Denies back pain, Denies arthralgias, Denies joint swelling, Denies neck pain, Denies numbness and Denies tingling Integumentary/Breasts: Skin/Breast: Reports system reviewed and no additional complaints, except as docu and Denies rash Neurologic: Reports system reviewed and no additional complaints, except as documented, Denies Abnormal speech present, Denies dizziness, Denies headache(s), Denies numbness, Denies tingling and Denies weakness Psychiatric: Psychiatric: Denies anxiety, Denies depression, Reports hallucinations, Denies homicidal ideation and Denies suicidal ideation [facility] Past Medical History Attestation statement: The following information was validated with the patient. Source: old records reviewed and nursing notes reviewed Medical History Hepatitis Latent tuberculosis Social History Social History Household Members: None Housing: Apartment Do you presently have visiting nurse or other home services: No Patient Tobacco Use Status: Current everyday Tobacco user Tobacco use type: Cigarette Cigarette Packs Per Day: 1.5 Cigarettes Per Day: 30.0 Second Hand Smoke Exposure: Yes Substance Use Type: Crack/Cocaine, Marijuana and Opiates Advance Directives: No Advance Directives Information Provided: No service: No Sexual orientation: Straight/Heterosexual Physical Exam Vital Signs: Vital Signs: Last Vital Signs Temp 98.6 F 07/31/21 16:30 Pulse 54 07/31/21 16:30 Resp 18 07/31/21 16:30 BP 99/62 07/31/21 16:30 Pulse Ox 96 07/31/21 16:30 BMI result Body Mass Index 27.6 Const: General: cooperative, healthy appearing, comfortable and no acute distress Orientation/consciousness: patient oriented x3 Limitations: no limitations HEENT: Head: Yes normal to inspection Ears: hearing grossly normal bilaterally and TM's normal bilaterally General nose exam: Normal external nose present Face and sinus: Yes normal facial exam Mouth: Normal oral and palatal mucosa present Throat: Yes posterior oropharynx normal Eyes: General: appearance normal, both eyes and all related structures Pupils: Equal, round and reactive pupils present Neck: Neck: Yes normal visual inspection Chest: Chest palpation & inspection: normal inspection of the chest Resp: Effort & Inspection: normal respiratory effort Auscultation: clear to auscultation bilaterally Cardio: Rate: regular rate Rhythm: regular rhythm Peripheral pulses: Peripheral pulses 2+ throughout GI: Inspection: Yes normal to inspection Palpation (GI): Soft to palpation and nontender Auscultation: normal bowel sounds Back/Spine/Pelvis: Thoracic/Lumbar Spine: thoracic and lumbar spine normal to inspection Skin: General skin exam: no rashes or lesions noted Neuro: General: patient oriented x3, no focal motor deficits and normal sensation to monofilament Cranial nerves: Yes CN's II-XII intact bilaterally and Yes Equal, round and reactive pupils present Cognition (Neuro): normal cognition Speech: No Abnormal speech present Gait exam (Neuro): Normal gait present Motor exam (neuro): 5/5 motor strength present throughout Extrem: General: Yes normal to inspection Course Course Course Narrative: 36-year-old male here with reports of hearing voices requesting to speak to crisis. No suicidal homicidal ideations. No physical complaints. Will obtain drug screen, COVID screen and a care team consultation Reevaluation(s) Reevaluation #1: Patient seen by [facility]. he has appt with [facility] tomorrow. No SI/HI. here with his partner who feels comfortable with plan for follow-up in AM. [facility] - Psych Medical Records Attestation: I reviewed the patient's medical records. Lab Data Attestation: I reviewed the patient's lab results. Labs: Lab Results 07/31/21 07/31/21 Range/Units 16:30 16:38 Urine Opiates Screen POSITIVE H (Not Detect) Urine Fentanyl Screen POSITIVE H (Not Detect) Ur Barbiturates Screen Not Detected (Not Detect) Ur Phencyclidine Scrn Not Detected (Not Detect) Ur Amphetamines Screen Not Detected (Not Detect) U Benzodiazepines Scrn Not Detected (Not Detect) Urine Cocaine Screen POSITIVE H (Not Detect) U Marijuana (THC) Screen POSITIVE H (Not Detect) COVID-19 (DEBBI) Negative (Negative) COVID-19 Clin Com See Note Discharge Plan Discharge Clinical Impression: Schizoaffective disorder, depressive type Patient Disposition: Home, Self-Care Instructions: Schizoaffective Disorder (ED) Additional Instructions: Keep your appointment with [facility] for tomorrow Continue your medications Prescriptions: No Action methadone 10 mg/mL Concentrate 120 mg PO DAILY 0RF nicotine (polacrilex) 2 mg Gum 4 mg buccal Q2H PRN (Reason: nicotine cravings) 30 Days Qty: 100 0RF olanzapine 7.5 mg Tablet 15 mg PO BEDTIME 30 Days Qty: 60 0RF Referrals: [facility] [Primary Care Provider] - 5 days (as needed) Interventions: ED Discharge Assessment Last Done: 07/31/21 17:20 Discharge Date/Time: 07/31/21 17:21
[2021-07-31 16:30] VITALS: BP 99/62; PULSE 54; RESP 18; TEMP 37; O2SAT 96
[2021-07-31 16:56] LABS: COVID-19 Test Negative (Negative); IDNOW Serial# 16C4AD1C
[2021-07-31 17:09] LABS: Amphetamine Screen Urine Not Detected (Not Detect); Barbiturates, Urine Not Detected (Not Detect); Benzodiazepines Screen Urine Not Detected (Not Detect); Cannabinoid Screen Urine POSITIVE (Not Detect); Cocaine Screen Urine POSITIVE (Not Detect); Fentanyl, urine POSITIVE (Not Detect); Opiate Screen Urine POSITIVE (Not Detect); Phencyclidine Screen Urine Not Detected (Not Detect)
--- NOTE | 2021-07-31 17:21 | MHC.CARE ---
Pt is a 36 y/o Yoruba speaking, male who is known to the CARE Team through previous ED visits and inpatient stays.? Today, pt arrived in the ED with a complaint of hearing voices.? He describes his voices as being like ?Having a speaker in my head and hearing my own voice inside my head? and srinath to being in a room full of people holding conversations.? He is denying and command auditory hallucinations.? There is no discernable language or messages to the voices, just the sound of talking.? Pt denies any HI, , SI, or self-harm urges.? Pt reports that he was late for his methadone appointment this week and was denied entry.? Pt used heroin, and reports that his voices worsened after using.? This is the norm for pt.? By report his auditory hallucinations are worsened by drug use. Pt reports that he also believes he sees people and movement out of the corner of his eyes at times.? During the assessment, pt was engaged, and answered all questions.? He appeared to be responding to internal stimuli at times.? Pt was present in the room with his girlfriend who provided additional information regarding his present state.? She advised CARE Team that she had secured an appointment with his prescriber for tomorrow at 10:00AM for a review of his medications.? Pt reports being compliant with his medications as prescribed and that they were working well when he initially began them.? He stated that for the past week he has been experiencing the voices and has expressed concerns that the medications were no longer working as effectively. Plan is for pt to be discharged as he does not appear to be a risk at this time. ?He has supports? in the community in the form of a psychiatrist and a therapist who by his and his girlfriend?s report he has been seeing as scheduled.? This disposition was discussed with and agreed upon by Care Production Control Expert Hina WARD, ED Coordinator Barbie Montanez, and ED provider Lisbeth Morgan. ?
== END 2021-07-31 17:21 | disposition home or self-care (01) ==
PROVIDERS: Nurse Practitioner Family; Emergency Provider Emergency Medicine Emergency Medical Services
DX: F25.1 Schizoaffective disorder, depressive type (principal); F11.10 Opioid abuse, uncomplicated; F12.10 Cannabis abuse, uncomplicated; F17.210 Nicotine dependence, cigarettes, uncomplicated; Z79.899 Other long term (current) drug therapy; Z20.822 Contact with and (suspected) exposure to COVID-19; Z71.6 Tobacco abuse counseling
CPT/HCPCS: 80307; 87635; 99284

== ENCOUNTER 2022-04-04 11:28 | Outpatient (REF) | payer MEDICAID, SELFPAY ==
[2022-04-04 12:33] LABS: COVID-19 Test Negative (Negative); IDNOW Serial# 16C4AD1C
== END 2022-04-04 11:29 | disposition home or self-care (01) ==
LOC: HO.LAB 11:28
PROVIDERS: Visit Provider Internal Medicine
DX: Z20.822 Contact with and (suspected) exposure to COVID-19 (principal)
CPT/HCPCS: 87635; C9803

== ENCOUNTER 2022-07-17 14:04 | Outpatient (REF) | payer MEDICAID, SELFPAY ==
[2022-07-17 14:45] LABS: Hematocrit 41.1 % (42.0-52.0); Hemoglobin 13.9 g/dl (14.0-18.0); Mean Corpuscular HGB Conc 33.8 g/dl (31.0-36.0); Mean Corpuscular Hemoglobin 30.1 pg (27.0-33.0); Mean Platelet Volume 9.4 fL (9.4-12.4); Platelet Count 217 X10*3/uL (160-400); Red Blood Count 4.62 X10*6/uL (4.60-5.80); White Blood Count 4.2 X10*3/uL (4.8-10.8)
[2022-07-17 15:02] LABS: Ammonia 50 umol/L (13-55)
[2022-07-17 15:08] LABS: Alanine Aminotransferase 68 U/L (0-40); Albumin Level 4.3 g/dL (3.5-5.0); Alkaline Phosphatase 80 U/L (39-117); Anion Gap 10 (12-20); Aspartate Amino Transferase 41 U/L (5-37); Bilirubin Total 0.2 mg/dL (0.0-1.0); Blood Urea Nitrogen 11 mg/dL (9-16); Calcium 9.2 mg/dL (8.4-10.2); Carbon Dioxide 30 mmol/L (22-29); Chloride 105 mmol/L (96-108); Cholesterol 175 mg/dL; Estimated Glomerular Filt Rate > 60; Glucose Random 82 mg/dL (60-115); HDL Cholesterol 37 mg/dL; Iron 74 mcg/dL (45-160); LDL Cholesterol Calculated 104 mg/dl; Percent Iron Saturation 23 % (15-50); Potassium 4.4 mmol/L (3.3-5.1); Sodium 141 mmol/L (135-145); Total Iron Binding Capacity 326 mcg/dL (228-428); Total Protein 7.3 g/dL (6.5-8.0); Triglycerides 172 mg/dL; Unsaturated Iron Binding 252 ug/dL
[2022-07-18 04:01] LABS: Syphilis Screen Nonreactive (Nonreactive)
[2022-07-18 04:18] LABS: ~HepC Num1 12.79 S/CO (0.00-0.79); ~Hepatitis C Antibody Reactive (Nonreactive)
[2022-07-18 04:21] LABS: HBS Num1 > 1000.00 mIU/mL (0-7.99); HBc Num1 0.06 S/CO (0.00-0.79); HBsAGNum1 0.25 S/CO (0.00-0.99); Hepatitis A Antibody IgM 0.16 Index (0-0.79); Hepatitis B Core Antibody Nonreactive (Nonreactive); Hepatitis B Surface Antigen Negative (Negative); ~HepC Num1 13.73 S/CO (0.00-0.79); ~Hepatitis A Antibody IgM Nonreactive (Nonreactive); ~Hepatitis B Surface Antibody REACTIVE (Nonreactive); ~Hepatitis C Antibody Reactive (Nonreactive)
[2022-07-19 12:34] LABS: HIV RNA PCR Qn Copies NOT DETECTED copies/mL (NOT DETECTED); HIV RNA PCR Qn Log Copies NOT DETECTED (NOT DETECTED)
[2022-07-23 00:59] LABS: FIB-ALT 61 U/L (9-46); FIB-Alpha-2-Macroglobulin 155 mg/dL (106-279); FIB-Apolipoprotein A1 134 mg/dL (94-176); FIB-GGT 91 U/L (3-90); FIB-Haptoglobin 62 mg/dL (43-212); FIB-Total Bilirubin 0.2 mg/dL (0.2-1.2); Liver Fibrosis Score 0.15; Liver Fibrosis Stage F0; Nec Inflam Act Grade A1; Nec Inflam Act Score 0.31
== END 2022-07-17 14:05 | disposition home or self-care (01) ==
LOC: HO.LAB 14:04
PROVIDERS: PCP Registered Nurse; Visit Provider Registered Nurse
DX: Z00.00 Encounter for general adult medical examination without abnormal findings (principal); Z11.4 Encounter for screening for human immunodeficiency virus [HIV]; B19.20 Unspecified viral hepatitis C without hepatic coma
CPT/HCPCS: 36415; 80053; 80061; 81596; 82140; 83540; 85027; 86704; 86706; 86709; 86780; 86803; 87340; 87522; 87536

== ENCOUNTER 2022-07-26 09:50 | Inpatient (IN) | payer MEDICAID, SELFPAY ==
[2022-07-26] VITALS (7 sets, daily range): BP systolic 99–118; BP diastolic 56–66; PULSE 63–80; RESP 12–20; TEMP 36.7–37.9; O2SAT 96–98; BMI 31.7; BMI 30.3
--- NOTE | ~2022-07-26 | XR_ITS ---
EXAMINATION: XR CHEST CLINICAL INFORMATION: Fever COMPARISON: Previous chest x-ray December 2015 TECHNIQUE: Frontal view of the chest was obtained. FINDINGS: No significant abnormality is noted involving the heart, lungs, mediastinum, bony thorax or soft tissues. XR/XR chest 1V IMPRESSION: Unremarkable examination.
--- NOTE | ~2022-07-26 | CT_ITS ---
EXAMINATION: CT ABDOMEN AND PELVIS WITHOUT CONTRAST CLINICAL INFORMATION: Nausea and vomiting COMPARISON: None available. TECHNIQUE: Multidetector volumetric imaging was performed from the superior aspect of the liver through the pubic symphysis. Sagittal and coronal reformatted images were obtained on the technologist's workstation. This CT examination was performed using dose optimization techniques as appropriate, variously including the following: *Automated exposure control *Adjustment of mA and/or kV according to patient size (this includes techniques or standardized protocols for targeted exams where dose is matched to indication/reason for exam; i.e. extremities or head) *Use of iterative reconstruction technique DLP: 606 mGy-cm FINDINGS: LUNG BASES: Calcified granuloma in the right lung base. ABDOMINAL AND PELVIC WALL: Unremarkable. LIVER AND BILIARY TREE: Hypoattenuating hepatic parenchyma compatible with hepatic steatosis. GALLBLADDER: Unremarkable. PANCREAS: Unremarkable. SPLEEN: Unremarkable. ADRENAL GLANDS: Unremarkable. KIDNEYS AND URETERS: Unremarkable. GASTROINTESTINAL TRACT: Equivocal mild wall thickening involving the splenic flexure transverse colon. Normal appendix. VASCULAR: Unremarkable. LYMPH NODES/PERITONEUM: No lymphadenopathy. FREE FLUID: None. BLADDER: Unremarkable. PELVIC VISCERA: Unremarkable. OSSEOUS STRUCTURES: Unremarkable. CT/CT abdomen pelvis wo IV con IMPRESSION: 1. Equivocal mild wall thickening involving the splenic flexure transverse colon, equivocal for colitis. Recommend correlation with clinical symptoms. 2. Hepatic steatosis.
--- NOTE | 2022-07-26 10:15 | MHC.EDTECH ---
Labs, covid/flu swab collected and sent to lab
[2022-07-26 10:18] LABS: MANUAL DIFF FLAG NO
[2022-07-26 10:27] LABS: Basophils Absolute Auto 0.1 X10*3/uL (0.0-0.2); Basophils Percent Auto 1.1 % (0-2); Eosinophils Percent Auto 0.9 % (0-4); Hematocrit 42.5 % (42.0-52.0); Hemoglobin 14.8 g/dl (14.0-18.0); Imm Gran Abs Auto 0.02 X10*3/uL (0.00-0.03); Imm Gran Pct Auto 0.4 % (0.0-0.4); LEFT SHIFT? 1; Lymphocytes Absolute Auto 0.8 X10*3/uL (1.2-4.9); Lymphocytes Percent Auto 16.8 % (20-40); Mean Corpuscular HGB Conc 34.8 g/dl (31.0-36.0); Mean Corpuscular Hemoglobin 29.8 pg (27.0-33.0); Mean Corpuscular Volume 85.5 fL (80.0-98.0); Mean Platelet Volume 9.5 fL (9.4-12.4); Monocytes Absolute Auto 0.8 X10*3/uL (0.1-1.2); Monocytes Percent Auto 16.4 % (2-11); Neutrophils Percent Auto 64.4 % (45-73); Platelet Count 202 X10*3/uL (160-400); Red Blood Count 4.97 X10*6/uL (4.60-5.80); Red Cell Distribution Width 12.1 % (11.0-16.0); WBC ABN SCTR 1
[2022-07-26 10:28] LABS: WBC ABN SCTR FOR CBC 1
[2022-07-26 10:34] LABS: Anion Gap 19 (12-20); Blood Urea Nitrogen 35 mg/dL (9-16); Calcium 9.3 mg/dL (8.4-10.2); Carbon Dioxide 20 mmol/L (22-29); Chloride 97 mmol/L (96-108); Creatinine Clr Calc Pharmacy 41.7; Estimated Glomerular Filt Rate 26; Glucose Random 140 mg/dL (60-115); Potassium 3.9 mmol/L (3.3-5.1); Sodium 132 mmol/L (135-145)
[2022-07-26 10:39] LABS: COVID-19 Test Negative (Negative); IDNOW Serial# 55D5AD1C; IDNOW Serial# 6674DD1D; Influenza A Negative (Negative); Influenza B2 Negative (Negative)
[2022-07-26 11:21] LABS: White Blood Count 4.7 X10*3/uL (4.8-10.8)
[2022-07-26 11:43] LABS: Neutrophils Percent Manual 34 % (45-73)
[2022-07-26 11:46] LABS: Band Neutrophils Percent 21 % (3-5); Eosinophils Absolute Manual 0.1 X10*3/uL (0.0-0.4); Eosinophils Percent Manual 2 % (0-4); Lymphocytes Absolute Manual 1.2 X10*3/uL (1.2-4.9); Lymphocytes Percent Manual 26 % (20-40); Metamyelocytes Absolute 0.1 X10*3/uL; Metamyelocytes Percent 2 %; Monocytes Absolute Manual 0.7 X10*3/uL (0.1-1.2); Monocytes Percent Manual 15 % (2-11); Neutrophils Absolute Manual 2.6 X10*3/uL (2.0-8.3); RBC Morphology NORMAL
[2022-07-26 11:47] LABS: Platelet Estimate NORMAL (NORMAL); Platelet Morphology Comment NORMAL
--- NOTE | 2022-07-26 12:13 | ED_ITS ---
HPI - Nausea/Vomiting/Diarrhea General Chief complaint: Nausea/Vomiting/Diarrhea Stated complaint: vomiting diarrhea fever multiple issues Time Seen by Provider: 07/26/22 12:07 Source: patient Mode of arrival: ambulatory Limitations: no limitations History of Present Illness HPI Narrative: nausea/vomiting/diarrhea and fever X 2 days ,pt has hx of IVDA elicited complaint: nausea, vomiting and diarrhea Pertinent past history: anorexia Onset (ago): day(s) (2) Description of vomiting: watery Associated nausea: Yes Associated abdominal pain: No Quality: cramping Exacerbating factors: eating Relieving factors: eating Related Data Home Medications Medication Instructions Recorded Confirmed methadone 10 mg/mL oral concentrate 120 mg PO DAILY 07/01/21 07/01/21 benztropine 1 mg tablet 1 mg PO BEDTIME 07/26/22 07/26/22 fluoxetine 20 mg capsule (Prozac) 20 mg PO QAM 07/26/22 07/26/22 olanzapine 10 mg tablet 10 mg PO BEDTIME 07/26/22 07/26/22 risperidone 4 mg tablet (Risperdal) 4 mg PO BEDTIME 07/26/22 07/26/22 Previous Rx's Medication Instructions Recorded nicotine (polacrilex) 2 mg gum 4 mg buccal Q2H PRN nicotine 07/03/21 cravings 30 days #100 ea Allergies Allergy/AdvReac Type Severity Reaction Status Date / Time SEAFOOD Allergy Unknown HIVES Uncoded 01/12/20 16:49 Review of Systems Constitutional: Constitutional: Reports no additional constitutional complaints Cardiovascular: Cardiovascular: Reports no additional cardiovascular complaints Gastrointestinal: Gastrointestinal: Reports nausea and Reports vomiting PMFSH Past Medical History [facility] Narrative: IVDA/Hep C Medical History (Updated 07/26/22 @ 13:02 by Cristo Henson MD) Hepatitis Latent tuberculosis Surgical History (Updated 07/26/22 @ 16:23 by Xin Cooney NP) No pertinent past surgical history Social History Social History Household Members: None Housing: Apartment Do you presently have visiting nurse or other home services: No Patient Tobacco Use Status: Current everyday Tobacco user Tobacco use type: Cigarette Cigarette Packs Per Day: 1.5 Cigarettes Per Day: 30.0 Smoked in Last 30 Days: Yes Second Hand Smoke Exposure: Yes Substance Use Type: Crack/Cocaine, Marijuana and Opiates Advance Directives: No Advance Directives Information Provided: Yes service: No Sexual orientation: Straight/Heterosexual Physical Exam Vital Signs: Vital Signs: Last Vital Signs Temp 98.4 F 07/26/22 13:37 Pulse 63 07/26/22 16:37 Resp 12 07/26/22 13:37 BP 99/58 L 07/26/22 16:37 Pulse Ox 97 07/26/22 16:37 O2 Del Method Room Air 07/26/22 16:37 BMI result Body Mass Index 31.7 Const: General: cooperative and no acute distress Nutritional Appearance: well nourished Orientation/consciousness: patient oriented x3 HEENT: Head: Yes normal to inspection General nose exam: Normal external nose present Face and sinus: Yes normal facial exam Mouth: Normal oral and palatal mucosa present Neck: Neck: Yes normal visual inspection Chest: Chest palpation & inspection: normal inspection of the chest Resp: Effort & Inspection: normal respiratory effort Auscultation: clear to auscultation bilaterally Cardio: Jugular venous distension: no JVD Rate: regular rate Rhythm: regular rhythm GI: Inspection: Yes normal to inspection Palpation (GI): Soft to palpation, not firm, nontender and no guarding Percussion: Yes normal to percussion Skin: General skin exam: no rashes or lesions noted and elasticity normal Lesions: no lesions Rashes: no rashes Wounds: no wounds Neuro: General: patient oriented x3 Course Reevaluation(s) Reevaluation #1: presented with fever and acute renal failure will admit IV AB started Time: 16:52 Medications Administered Generic Name Dose Route Start Last Admin Trade Name Freq PRN Reason Stop Dose Admin Fluoxetine HCl 20 mg 07/26/22 15:30 07/26/22 16:43 Fluoxetine Hcl 20 Mg Capsule PO Not Given DAILY JOHN Heparin Sodium (Porcine) 5,000 unit 07/26/22 16:15 07/26/22 16:44 Heparin Sodium,Porcine 5,000 Unit/Ml Vial SUBCUT Not Given Q12H JOHN Discontinued Medications Generic Name Dose Route Start Last Admin Trade Name Freq PRN Reason Stop Dose Admin Sodium Chloride 1,000 mls @ 999 mls/hr 07/26/22 12:15 07/26/22 13:43 Ns IVCONT 07/26/22 13:15 Infused .Q1H1M JOHN Infusion Sodium Chloride 1,000 mls @ 999 mls/hr 07/26/22 12:15 07/26/22 15:53 Ns IVCONT 07/26/22 13:15 Infused .Q1H1M JOHN Infusion Piperacillin Sod/Tazobactam 50 mls @ 100 mls/hr 07/26/22 12:11 07/26/22 13:42 Sod 3.375 gm/ Sodium Chloride IV 07/26/22 12:40 Infused ONCE ONE Infusion Vancomycin HCl 2,000 mg in 520 mls @ 260 mls/hr 07/26/22 12:30 07/26/22 13:43 Vancomycin/Ns IV 07/26/22 14:29 260 mls/hr ONCE ONE Administration Ondansetron HCl 4 mg 07/26/22 13:06 07/26/22 13:37 Ondansetron Hcl 4 Mg/2 Ml Vial IVPUSH 07/26/22 13:07 4 mg ONCE ONE Administration Medical Decision Making Medical Decision Making MDM Narrative: presented in renal failure and bademmia will admit for iv fluids and iv ab Differential Diagnosis Differential Diagnoses: The differential diagnosis associated with the presentation includes sepsis/pneumonia/endocardities Consult Healthcare Provider Management of the patient was discussed with: Hospitalist Lab Data MDM Lab Attestation statement: I reviewed the patient's lab results. 07/26/22 10:12 07/26/22 10:12 Labs: Lab Results 07/26/22 07/26/22 07/26/22 Range/Units 10:12 10:12 10:12 WBC 4.7 L (4.8-10.8) X10*3/uL RBC 4.97 (4.60-5.80) X10*6/uL Hgb 14.8 (14.0-18.0) g/dl Hct 42.5 (42.0-52.0) % MCV 85.5 (80.0-98.0) fL MCH 29.8 (27.0-33.0) pg MCHC 34.8 (31.0-36.0) g/dl RDW 12.1 (11.0-16.0) % Plt Count 202 (160-400) X10*3/uL MPV 9.5 (9.4-12.4) fL Immature Gran % (Auto) 0.4 (0.0-0.4) % Neut % (Auto) 64.4 (45-73) % Lymph % (Auto) 16.8 L (20-40) % [place] % (Auto) 16.4 H (2-11) % Eos % (Auto) 0.9 (0-4) % Baso % (Auto) 1.1 (0-2) % Lymph # (Auto) 0.8 L (1.2-4.9) X10*3/uL [place] # (Auto) 0.8 (0.1-1.2) X10*3/uL Eos # (Auto) 0.0 (0.0-0.4) X10*3/uL Baso # (Auto) 0.1 (0.0-0.2) X10*3/uL Abs Immat Gran (auto) 0.02 (0.00-0.03) X10*3/uL Absolute Neuts (auto) 3.0 (2.0-8.3) x10*3/uL Absolute Nucleated RBC 0.000 (0.0-0.012) X10*3/uL Nucleated RBC % (auto) 0.0 (0.0-0.2) /100WBC Neutrophils % (Manual) 34 L (45-73) % Band Neutrophils % 21 H (3-5) % Lymphocytes % (Manual) 26 (20-40) % Monocytes % (Manual) 15 H (2-11) % Eosinophils % (Manual) 2 (0-4) % Metamyelocytes % 2 % Abs Neuts (Manual) 2.6 (2.0-8.3) X10*3/uL Lymphocytes # (Manual) 1.2 (1.2-4.9) X10*3/uL Monocytes # (Manual) 0.7 (0.1-1.2) X10*3/uL Eosinophils # (Manual) 0.1 (0.0-0.4) X10*3/uL Metamyelocytes # 0.1 X10*3/uL Platelet Estimate NORMAL (NORMAL) Plt Morphology Comment NORMAL RBC Morphology NORMAL Sodium 132 L (135-145) mmol/L Potassium 3.9 (3.3-5.1) mmol/L Chloride 97 (96-108) mmol/L Carbon Dioxide 20 L (22-29) mmol/L Anion Gap 19 (12-20) BUN 35 H (9-16) mg/dL Creatinine 2.79 H (0.5-1.4) mg/dL Estim Creat Clear Calc 41.7 Estimated GFR 26 Random Glucose 140 H (60-115) mg/dL Lactic Acid (0.5-2.0) mmol/L Calcium 9.3 (8.4-10.2) mg/dL COVID-19 (DEBBI) (Negative) COVID-19 Clin Com Influenza Type A (SOM) Negative (Negative) Influenza Type A (PCR) (Negative) Influenza Type B (SOM) Negative (Negative) Influenza Type B (PCR) (Negative) Influenza A & B Note See Note RSV RNA Qual (PCR) (Negative) SARS-CoV-2 RNA (RT-PCR) (Negative) 07/26/22 07/26/22 07/26/22 Range/Units 10:12 12:31 12:31 WBC (4.8-10.8) X10*3/uL RBC (4.60-5.80) X10*6/uL Hgb (14.0-18.0) g/dl Hct (42.0-52.0) % MCV (80.0-98.0) fL MCH (27.0-33.0) pg MCHC (31.0-36.0) g/dl RDW (11.0-16.0) % Plt Count (160-400) X10*3/uL MPV (9.4-12.4) fL Immature Gran % (Auto) (0.0-0.4) % Neut % (Auto) (45-73) % Lymph % (Auto) (20-40) % [place] % (Auto) (2-11) % Eos % (Auto) (0-4) % Baso % (Auto) (0-2) % Lymph # (Auto) (1.2-4.9) X10*3/uL [place] # (Auto) (0.1-1.2) X10*3/uL Eos # (Auto) (0.0-0.4) X10*3/uL Baso # (Auto) (0.0-0.2) X10*3/uL Abs Immat Gran (auto) (0.00-0.03) X10*3/uL Absolute Neuts (auto) (2.0-8.3) x10*3/uL Absolute Nucleated RBC (0.0-0.012) X10*3/uL Nucleated RBC % (auto) (0.0-0.2) /100WBC Neutrophils % (Manual) (45-73) % Band Neutrophils % (3-5) % Lymphocytes % (Manual) (20-40) % Monocytes % (Manual) (2-11) % Eosinophils % (Manual) (0-4) % Metamyelocytes % % Abs Neuts (Manual) (2.0-8.3) X10*3/uL Lymphocytes # (Manual) (1.2-4.9) X10*3/uL Monocytes # (Manual) (0.1-1.2) X10*3/uL Eosinophils # (Manual) (0.0-0.4) X10*3/uL Metamyelocytes # X10*3/uL Platelet Estimate (NORMAL) Plt Morphology Comment RBC Morphology Sodium (135-145) mmol/L Potassium (3.3-5.1) mmol/L Chloride (96-108) mmol/L Carbon Dioxide (22-29) mmol/L Anion Gap (12-20) BUN (9-16) mg/dL Creatinine (0.5-1.4) mg/dL Estim Creat Clear Calc Estimated GFR Random Glucose (60-115) mg/dL Lactic Acid 1.5 (0.5-2.0) mmol/L Calcium (8.4-10.2) mg/dL COVID-19 (DEBBI) Negative (Negative) COVID-19 Clin Com See Note Influenza Type A (SOM) (Negative) Influenza Type A (PCR) NEGATIVE (Negative) Influenza Type B (SOM) (Negative) Influenza Type B (PCR) NEGATIVE (Negative) Influenza A & B Note RSV RNA Qual (PCR) NEGATIVE (Negative) SARS-CoV-2 RNA (RT-PCR) NEGATIVE (Negative) Independent Interpretation I performed an independent interpretation of an: Plain X-Ray Radiology Impression Discussion of test interpretation with radiology: I have reviewed the radiologis t's reading. Radiologist Impression: normal Discharge Plan Discharge Clinical Impression: Acute renal failure, Bandemia Patient Disposition: Admitted As Inpatient
[2022-07-26] MEDS: 0.9 % Sodium Chloride 1,000 ML 999 ML IVCONT ×2 (12:38→13:43)
[2022-07-26] MEDS: Piperacillin Sodium/Tazobactam 3.375 GM in 0.9 % Sodium Chloride 50 ML IV ×2 (12:45→18:45)
[2022-07-26 12:48] LABS: Lactic Acid 1.5 mmol/L (0.5-2.0)
--- NOTE | 2022-07-26 12:48 | PC.NURSE ---
Alert and oriented, resp even and unlabored. IV established, labs drawn and sent. Fluids and anitbiotics infusing. Call lee within reach
[2022-07-26 13:19] LABS: Influenza A PCR NEGATIVE (Negative); Influenza B PCR NEGATIVE (Negative); Resp Syncy Virus RNA Qual PCR NEGATIVE (Negative); SARS COV2 PCR INHOUSE NEGATIVE (Negative)
[2022-07-26] MEDS: ondansetron HCL 4 MG/2 ML VIAL IVPUSH (13:37)
--- NOTE | 2022-07-26 13:40 | PHA.MEDREC ---
Pharmacy Consult ? Medication Reconciliation Pharmacy has completed the medication reconciliation. Confirmed all medication but waiting on methadone confirmation form. Last dose 07/26 am
--- NOTE | 2022-07-26 13:56 | PC.NURSE ---
Second antibiotic and fluids infusing. Resting quietly in stretcher with call lee in reach.
--- NOTE | 2022-07-26 15:21 | PM.IMHP ---
History of Present Illness Date of Service: 07/26/22 <iXn Cooney NP - Last Filed: 07/26/22 16:38> Chief Complaint: fever <Xin Cooney NP - Last Filed: 07/26/22 16:38> 37 year old man presenting to the ED with 2 days of fever, chills, nausea, vomiting, diarrhea,body and abdominal pain. He has a hx of IVDU and last used yesterday. He denies chest pain, recent travel, sick contacts, trauma. Lives with his spouse. Sodium was 132, creatinine 2.79 with no history of chronic kidney disease, normal lactic acid, no fever, blood pressure on the softer side, 106/57, bandemia of 21. Patient was given vancomycin, Zosyn, 2 L of IV fluids. Will be admitted for further management and treatment of acute JUAN MANUEL and hyponatremia. <Xin Cooney NP - Last Filed: 07/26/22 16:38> Review of Systems Review of Systems: Denies any recent fever chills or decrease in appetite respiratory denies any shortness of breath coverage production cardiovascular denies chest pain gastrointestinal see HPI genitourinary denies any dysuria frequency or hematuria musculoskeletal denies any joint pain or swelling neuropsych denies any weakness or seizures all other systems reviewed are negative <Xin Cooney NP - Last Filed: 07/26/22 16:38> [facility] Medical History: Medical History (Updated 07/26/22 @ 13:02 by Cristo Henson MD) Hepatitis Latent tuberculosis <Xin Cooney NP - Last Filed: 07/26/22 16:38> Surgical History: Surgical History (Updated 07/26/22 @ 16:23 by Xin Cooney NP) No pertinent past surgical history <Xin Cooney NP - Last Filed: 07/26/22 16:38> Social History: Social History Household Members: None Housing: Apartment Do you presently have visiting nurse or other home services: No Patient Tobacco Use Status: Current everyday Tobacco user Tobacco use type: Cigarette Cigarette Packs Per Day: 1.5 Cigarettes Per Day: 30.0 Smoked in Last 30 Days: Yes Second Hand Smoke Exposure: Yes Substance Use Type: Crack/Cocaine, Marijuana and Opiates Advance Directives: No Advance Directives Information Provided: Yes service: No Sexual orientation: Straight/Heterosexual <Xin Cooney NP - Last Filed: 07/26/22 16:38> Meds Allergies/Adverse reactions: Allergies Allergy/AdvReac Type Severity Reaction Status Date / Time SEAFOOD Allergy Unknown HIVES Uncoded 01/12/20 16:49 <Xin Cooney NP - Last Filed: 07/26/22 16:38> Active Medications: Current Medications Benztropine Mesylate (Benztropine Mesylate 1 Mg Tablet) 1 mg PO BEDTIME JOHN Fluoxetine HCl (Fluoxetine Hcl 20 Mg Capsule) 20 mg PO QAM JOHN Nicotine Polacrilex (Nicotine Polacrilex 2 Mg Gum) 4 mg BUCCAL Q2H PRN PRN Reason: nicotine cravings Olanzapine (Olanzapine 10 Mg Tablet) 10 mg PO BEDTIME JOHN Pharmacy Consult (Consult Rx Perform Med Rec) 1 each MISCELLANE ONCE PRN PRN Reason: Consult order Risperidone (Risperidone 2 Mg Tablet) 4 mg PO BEDTIME [facility] <Xin Cooney NP - Last Filed: 07/26/22 16:38> Home medications: Home Medications Medication Instructions Recorded Confirmed Last Taken Type methadone 10 mg/mL oral concentrate 120 mg PO DAILY 07/01/21 07/01/21 07/26/22 History benztropine 1 mg tablet 1 mg PO BEDTIME 07/26/22 07/26/22 07/25/22 History fluoxetine 20 mg capsule (Prozac) 20 mg PO QAM 07/26/22 07/26/22 07/25/22 History olanzapine 10 mg tablet 10 mg PO BEDTIME 07/26/22 07/26/22 07/25/22 History risperidone 4 mg tablet (Risperdal) 4 mg PO BEDTIME 07/26/22 07/26/22 07/25/22 History <Xin Cooney NP - Last Filed: 07/26/22 16:38> Physical Exam Vital Signs and Narrative: Vital Signs: Last Vital Signs Temp 98.4 F 07/26/22 13:37 Pulse 67 07/26/22 13:37 Resp 12 07/26/22 13:37 BP 106/57 L 07/26/22 13:37 Pulse Ox 97 07/26/22 13:37 O2 Del Method Room Air 07/26/22 13:37 BMI result Body Mass Index 31.7 <Xin Cooney NP - Last Filed: 07/26/22 16:38> Appearing in no acute distress head is normocephalic atraumatic eyes pupils are PERRLA sclera is anicteric mouth throat mucous membranes are intact and moist neck is supple no lymphadenopathy, no JVD noted lung sounds are clear to auscultation heart regular rate rhythm, clear S1, S2 positive bowel sounds, abdomen is soft, nontender neuro patient is alert x3, no focal deficits <Xin Cooney NP - Last Filed: 07/26/22 16:38> Results Labs CBC and Chem 7: 07/26/22 10:12 07/26/22 10:12 <Xin Cooney [employer]HE[employer]ATION [employer]ORATORY TECHNICIAN - Last Filed: 07/26/22 16:38> Labs: Laboratory Results - last 24 hr 07/26/22 07/26/22 07/26/22 10:12 10:12 10:12 MCV 85.5 MCH 29.8 MCHC 34.8 RDW 12.1 Plt Count 202 MPV 9.5 Immature Gran % (Auto) 0.4 Neut % (Auto) 64.4 Lymph % (Auto) 16.8 L [place] % (Auto) 16.4 H Eos % (Auto) 0.9 Baso % (Auto) 1.1 Lymph # (Auto) 0.8 L [place] # (Auto) 0.8 Eos # (Auto) 0.0 Baso # (Auto) 0.1 Abs Immat Gran (auto) 0.02 Absolute Neuts (auto) 3.0 Absolute Nucleated RBC 0.000 Nucleated RBC % (auto) 0.0 Neutrophils % (Manual) 34 L Band Neutrophils % 21 H Lymphocytes % (Manual) 26 Monocytes % (Manual) 15 H Eosinophils % (Manual) 2 Metamyelocytes % 2 Abs Neuts (Manual) 2.6 Lymphocytes # (Manual) 1.2 Monocytes # (Manual) 0.7 Eosinophils # (Manual) 0.1 Metamyelocytes # 0.1 Platelet Estimate NORMAL Plt Morphology Comment NORMAL RBC Morphology NORMAL Anion Gap 19 Estim Creat Clear Calc 41.7 Estimated GFR 26 Random Glucose 140 H Lactic Acid Calcium 9.3 COVID-19 (DEBBI) COVID-19 Clin Com Influenza Type A (SOM) Negative Influenza Type A (PCR) Influenza Type B (SOM) Negative Influenza Type B (PCR) Influenza A & B Note See Note RSV RNA Qual (PCR) SARS-CoV-2 RNA (RT-PCR) 07/26/22 07/26/22 07/26/22 10:12 12:31 12:31 MCV MCH MCHC RDW Plt Count MPV Immature Gran % (Auto) Neut % (Auto) Lymph % (Auto) [place] % (Auto) Eos % (Auto) Baso % (Auto) Lymph # (Auto) [place] # (Auto) Eos # (Auto) Baso # (Auto) Abs Immat Gran (auto) Absolute Neuts (auto) Absolute Nucleated RBC Nucleated RBC % (auto) Neutrophils % (Manual) Band Neutrophils % Lymphocytes % (Manual) Monocytes % (Manual) Eosinophils % (Manual) Metamyelocytes % Abs Neuts (Manual) Lymphocytes # (Manual) Monocytes # (Manual) Eosinophils # (Manual) Metamyelocytes # Platelet Estimate Plt Morphology Comment RBC Morphology Anion Gap Estim Creat Clear Calc Estimated GFR Random Glucose Lactic Acid 1.5 Calcium COVID-19 (DEBBI) Negative COVID-19 Clin Com See Note Influenza Type A (SOM) Influenza Type A (PCR) NEGATIVE Influenza Type B (SOM) Influenza Type B (PCR) NEGATIVE Influenza A & B Note RSV RNA Qual (PCR) NEGATIVE SARS-CoV-2 RNA (RT-PCR) NEGATIVE <Xin Cooney NP - Last Filed: 07/26/22 16:38> Imaging Radiologist's Impressions: Impressions Chest X-Ray 07/26/22 13:30 IMPRESSION: Unremarkable examination. <Xin Cooney NP - Last Filed: 07/26/22 16:38> Assessment and Plan (1) Acute renal failure: Status: Acute <Xin Cooney NP - Last Filed: 07/26/22 16:38> 37 year old IVDU admitted with Abd pain, JUAN MANUEL, and vomiting that started 2 days ago with no precipitating factors Abd pain with nausea, vomiting and diarrhea no pain on examination noted bandemia normal lactic acid IV fluids NPO for now Abd CT, stool studies, resp path panel and UA pending broad spectrum abx, vanco and zosyn for now follow blood cx JUAN MANUEL Likely from vomiting, diarrhea, hypovolemia IV fluids recheck BMP this evening Hyponatremia Likely from vomiting, hypovolemia IV fluids recheck BMP this evening IVDU On Methadone, continue home dose 120mg RN to verify in the am addiction consult Mental health continue home medications Smoker NRT discused cessation DVT prophylaxis with heparin Attending Dr. Cervantes Full code Patient will require 2 inpatient midnights for treatment of JUAN MANUEL, hyponatremia and abdominal pain requiring IV fluids, IV abx and frequent lab monitoring. <Xin Cooney NP - Last Filed: 07/26/22 16:38> 37 year old IVDU admitted with Abd pain, JUAN MANUEL, and vomiting that started 2 days ago with no precipitating factors Abd pain with nausea, vomiting and diarrhea no pain on examination noted bandemia normal lactic acid IV fluids NPO for now Abd CT, stool studies, resp path panel and UA pending broad spectrum abx, vanco and zosyn for now follow blood cx JUAN MANUEL Likely from vomiting, diarrhea, hypovolemia IV fluids recheck BMP this evening Hyponatremia Likely from vomiting, hypovolemia IV fluids recheck BMP this evening IVDU On Methadone, continue home dose 120mg RN to verify in the am addiction consult Mental health continue home medications Smoker NRT discused cessation DVT prophylaxis with heparin Attending Dr. Cervantes Full code Patient will require 2 inpatient midnights for treatment of JUAN MANUEL, hyponatremia and abdominal pain requiring IV fluids, IV abx and frequent lab monitoring. Addendum to history and physical by the advanced practice provider, MELODY Cooney I interviewed and examined the patient. I discussed their presentation and management with the REG. I reviewed the history and physical and agree with the documentation, with the following additions and corrections: 37yo M with hx IDU presenting with 2d of fever/chills/malaise and N/V/D, abd pain. On workup in ED found to have JUAN MANUEL, SCr 2.79, along with 21% bands though not meeting any SIRS criteria. CT A/P equivocal colitis. High risk of bacteremia, will treat with vanc/pip-anderson, and fluid-resuscitate for suspected prerenal JUAN MANUEL. Continue methadone. <Padmini Cervantes MD - Last Filed: 07/26/22 17:20> Time Spent With Patient Time: Total time managing care of this patient today ____ minutes. <Xin Cooney NP - Last Filed: 07/26/22 16:38> Quality Stroke Does the patient have a stroke diagnosis?: No <Xin Cooney NP - Last Filed: 07/26/22 16:38> VTE Prior VTE?: No <Xin Cooney NP - Last Filed: 07/26/22 16:38> VTE Risk Level:: Medical - moderate - high <Xin Cooney NP - Last Filed: 07/26/22 16:38> VTE Device Contraindication: Treatment Not Indicated <Xin Cooney NP - Last Filed: 07/26/22 16:38> VTE Drug Contraindication: N/A - Med Ordered <Xin Cooney NP - Last Filed: 07/26/22 16:38>
--- NOTE | 2022-07-26 15:53 | PC.NURSE ---
assumed care of patient. patient is sleeping-respirations equal and unlabored. Vanco infusing. call lee within reach
--- NOTE | 2022-07-26 16:54 | PHA.PROG ---
Admission Date/Time: July 26, 2022 16:06 Indication: BACTEREMIA Weight in k.522 kg Adjusted body weight in Kg: Olivia body weight in Kg: Obesity Dosing Indication % IBW: Serum Creatinine - Last 168 Hours 07/26/22 10:12 Creatinine 2.79 H Estimated CrCl and GFR - Last 168 Hours 07/26/22 10:12 Estim Creat Clear Calc 41.7 Estimated GFR 26 Vancomycin Loading Dose:2000 MG Current Vancomycin Dosing Regimen: 1250 Q24H Vancomycin Monitoring using AUC goal of 400 - 600 range with trough as surrogate marker: AUC 548, TROUGH 17.8 Date and Time for next Vancomycin Level to be drawn: RANDOM 07/28 @1200 Pharmacist Comments on Vancomycin Plan: Vancomycin dosing will take advantage of [employer] as a clinical decision support tool that uses Bayesian modeling to calculate individual patient's pharmacokinetic parameters and forecast the patient's drug concentration time course with the target goal AUC 24 range of 400 - 600 mg/L/hr.
--- NOTE | 2022-07-26 17:03 | PC.NURSE ---
nurse to nurse report to Hellen MCCOLLUM
[2022-07-26 17:06] LABS: Appearance Urine Clear; Color Urine Yellow; Glucose Urine UA Negative (Negative); Leukocyte Esterase Urine Negative (Negative); Nitrite Urine Negative (Negative); UMIC TRIGGER UACC YES; Urine Blood Trace (Negative); Urine Ketones Negative (Negative); Urine Protein 30 (1+) mg/dL (Neg-Trace)
[2022-07-26 17:11] LABS: Bacteria Urine None Seen (None Seen); RBC Urine 0-2 /HPF (0-2); WBC Urine 0-5 /HPF (0-5)
[2022-07-26 17:16] LABS: Amphetamine Screen Urine Not Detected (Not Detect); Barbiturates, Urine Not Detected (Not Detect); Benzodiazepines Screen Urine Not Detected (Not Detect); Cannabinoid Screen Urine Not Detected (Not Detect); Cocaine Screen Urine POSITIVE (Not Detect); Fentanyl, urine POSITIVE (Not Detect); Opiate Screen Urine Not Detected (Not Detect); Phencyclidine Screen Urine Not Detected (Not Detect)
--- NOTE | 2022-07-26 18:14 | PC.NURSE ---
When i first encountered patient to place heart monitor leads on chest he appeared alert and quick to reply. About 20 minutes later Pt appeared to be drowsy and could not keep eyes open during admission assessment. Pt was giggling when asked if he was okay. Due to urine testing positive for fentanyl and cocaine, security was called to check pts belongings. notified. Will continue to monitor pts vitals/ mental status
[2022-07-26] MEDS: 0.9 % Sodium Chloride 1,000 ML 100 ML IVCONT (18:39)
[2022-07-26 18:47] LABS: CDiff Gene PCR NEGATIVE (Negative)
[2022-07-26 18:53] LABS: Anion Gap 13 (12-20); Blood Urea Nitrogen 28 mg/dL (9-16); Calcium 8.5 mg/dL (8.4-10.2); Carbon Dioxide 21 mmol/L (22-29); Chloride 105 mmol/L (96-108); Creatinine Clr Calc Pharmacy 65.4; Estimated Glomerular Filt Rate 44; Glucose Random 121 mg/dL (60-115); Potassium 3.7 mmol/L (3.3-5.1); Sodium 135 mmol/L (135-145)
[2022-07-26] MEDS: Benztropine Mesylate 1 MG TABLET PO (20:16)
[2022-07-26] MEDS: risperiDONE 2 MG TABLET 4 MG PO (20:17)
[2022-07-26] MEDS: 0.9 % Sodium Chloride Flush 3 ML SYRINGE IVFLUSH (20:17)
[2022-07-26] MEDS: OLANZapine 10 MG TABLET PO (20:38)
--- NOTE | 2022-07-27 00:02 | PC.NURSE ---
Attempted to medicate pt for fever of 100.2 with Tylenol, pt in a deep sleep, he responds by opening his eyes, acknowledges me and back to sleep, no distress noted, I will cont to monitor patient.
[2022-07-27] MEDS: Piperacillin Sodium/Tazobactam 3.375 GM in 0.9 % Sodium Chloride 50 ML IV ×2 (01:04→06:10)
[2022-07-27 03:16] VITALS: BP 108/57; PULSE 70; RESP 20; TEMP 37.7; O2SAT 96
[2022-07-27] MEDS: Heparin Sodium,Porcine 5,000 UNIT/ML VIAL 5000 UNIT SUBCUT (04:37)
[2022-07-27] MEDS: 0.9 % Sodium Chloride 1,000 ML 100 ML IVCONT ×2 (04:38→17:41)
[2022-07-27 07:23] LABS: Alanine Aminotransferase 30 U/L (0-40); Albumin Level 3.3 g/dL (3.5-5.0); Alkaline Phosphatase 55 U/L (39-117); Anion Gap 12 (12-20); Aspartate Amino Transferase 17 U/L (5-37); Bilirubin Total 0.5 mg/dL (0.0-1.0); Blood Urea Nitrogen 16 mg/dL (9-16); Calcium 8.6 mg/dL (8.4-10.2); Carbon Dioxide 21 mmol/L (22-29); Chloride 107 mmol/L (96-108); Creatinine Clr Calc Pharmacy 122.5; Estimated Glomerular Filt Rate > 60; Glucose Random 72 mg/dL (60-115); Potassium 3.8 mmol/L (3.3-5.1); Sodium 136 mmol/L (135-145)
--- NOTE | 2022-07-27 08:19 | HE.PHANOTE ---
Methadone Verifcation Pharmacy has confirmed methadone dose with JERICHO Smith. Patient last received methadone 120 mg on 07/26/22 @ 0948. Confirmed with Moira. Wendy Bell, MoisésD
--- NOTE | 2022-07-27 08:22 | HE.PHANOTE ---
Vancomycin Dosing Renal function improved greatly. SCr decreased from 2.79 to 0.93. Will increase dose to vanco 1250 mg Q12H. Expected AUC 463 with a trough of 14.1. Level change to be drawn 07/28 @ 0700 prior to 4th dose. Wendy Bell, PharmD
[2022-07-27] MEDS: FLUoxetine HCl 20 MG CAPSULE PO (09:11)
[2022-07-27] MEDS: methADONE HCl 20 MG/2 ML ORAL.CONC 120 MG PO (09:11)
[2022-07-27] MEDS: 0.9 % Sodium Chloride Flush 3 ML SYRINGE IVFLUSH ×3 (09:11→20:26)
--- NOTE | 2022-07-27 09:26 | MHC.CM.PN ---
CM MET WITH PT AT BEDSIDE. LETHARGIC BUT RESPONSIVE TO QUESTIONS. LIVES WITH S/O IN AN APT ([address] [place]) INDEPENDENT AT BASELINE. 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. DP: HOME, NO SERVICES ANTICIPATED, PT STATES HE WILL GET HIS OWN RIDE HOME.
[2022-07-27] MEDS: vancomycin HCL 1,250 MG in 0.9 % Sodium Chloride 250 ML 166.67 MG IV (09:29)
[2022-07-27 10:05] LABS: Campylobacter Not Detected (Not Detect.); Plesiomonas shigelloides Not Detected (Not Detect.)
[2022-07-27 10:07] LABS: Adenovirus F 40/41 Not Detected (Not Detect.); Astrovirus Not Detected (Not Detect.); Cryptosporidium Not Detected (Not Detect.); Cyclospora cayetanensis Not Detected (Not Detect.); E. coli EAEC Not Detected (Not Detect.); E. coli EPEC Not Detected (Not Detect.); E. coli ETEC Not Detected (Not Detect.); E. coli STEC Not Detected (Not Detect.); Entamoeba histolytica Not Detected (Not Detect.); Giardia lamblia Not Detected (Not Detect.); Norovirus GI/GII Not Detected (Not Detect.); Rotavirus A Not Detected (Not Detect.); Salmonella Detected (Not Detect.); Sapovirus Not Detected (Not Detect.); Shigella sp./EIEC Not Detected (Not Detect.); Vibrio Not Detected (Not Detect.); Vibrio Cholerae Not Detected (Not Detect.); Yersinia enterocolitica Not Detected (Not Detect.)
--- NOTE | 2022-07-27 11:01 | HO.PM.IMPN ---
Subjective Subjective Date of Service: 07/27/22 Review of Systems Follow up abd pain, salmonella doing better, abd pain is improving no diarrhea Physical Exam Vital Signs: Vital Signs: Last Vital Signs Temp 99.8 F 07/27/22 03:16 Pulse 70 07/27/22 03:16 Resp 20 07/27/22 03:16 BP 108/57 L 07/27/22 03:16 Pulse Ox 96 07/27/22 03:16 O2 Del Method Room Air 07/27/22 03:16 BMI result Body Mass Index 30.3 Appearing in no acute distress lung sounds are clear to auscultation heart regular rate rhythm, clear S1, S2 positive bowel sounds, abdomen is soft, nontender neuro patient is alert x3, no focal deficits Objective Data Active Medications Acetaminophen (Acetaminophen 325 Mg Tablet) 650 mg PO Q6H PRN PRN Reason: Pain, Mild (Pain Scale 1-3) Benztropine Mesylate (Benztropine Mesylate 1 Mg Tablet) 1 mg PO BEDTIME [facility] Last Admin: 07/26/22 20:16 Dose: 1 mg Documented By: GILMER Fluoxetine HCl (Fluoxetine Hcl 20 Mg Capsule) 20 mg PO DAILY [facility] Last Admin: 07/27/22 09:11 Dose: 20 mg Documented By: ROBERTA Heparin Sodium (Porcine) (Heparin Sodium,Porcine 5,000 Unit/Ml Vial) 5,000 unit SUBCUT Q12H [facility] Last Admin: 07/27/22 04:37 Dose: 5,000 unit Documented By: GILMER Sodium Chloride (Ns) 1,000 mls @ 100 mls/hr IVCONT .Q10H [facility] Last Admin: 07/27/22 04:38 Dose: 100 mls/hr Documented By: GILMER Levofloxacin (Levaquin) 500 mg in 100 mls @ 100 mls/hr IV Q24H [facility] Lorazepam (Lorazepam 2 Mg/Ml Vial) 1 mg IVPUSH Q4H PRN PRN Reason: withdrawal Methadone HCl (Methadone Hcl 20 Mg/2 Ml Oral.Conc) 120 mg PO DAILY [facility] Last Admin: 07/27/22 09:11 Dose: 120 mg Documented By: ROBERTA Nicotine Polacrilex (Nicotine Polacrilex 2 Mg Gum) 4 mg BUCCAL Q2H PRN PRN Reason: nicotine cravings Nicotine Polacrilex (Nicotine Polacrilex 2 Mg Gum) 2 mg BUCCAL Q2H PRN PRN Reason: withdrawal Olanzapine (Olanzapine 10 Mg Tablet) 10 mg PO BEDTIME [facility] Last Admin: 07/26/22 20:38 Dose: 10 mg Documented By: GILMER Ondansetron HCl (Ondansetron Hcl 4 Mg/2 Ml Vial) 4 mg IVPUSH Q8H PRN PRN Reason: Nausea and Vomiting Pharmacy Consult (Consult Rx Perform Med Rec) 1 each MISCELLANE ONCE PRN PRN Reason: Consult order Pharmacy Consult (Consult Rx Vancomycin Dosing) 1 each MISCELLANE DAILY PRN PRN Reason: Consult order Risperidone (Risperidone 2 Mg Tablet) 4 mg PO BEDTIME [facility] Last Admin: 07/26/22 20:17 Dose: 4 mg Documented By: GILMER Sodium Chloride (0.9 % Sodium Chloride Flush 3 Ml Syringe) 3 ml IVFLUSH QSHIFT [facility] Last Admin: 07/27/22 09:11 Dose: 3 ml Documented By: FOSTEKR Labs 07/26/22 10:12 07/27/22 06:31 Labs: Laboratory Results - last 24 hr 07/26/22 07/26/22 07/26/22 10:12 12:31 12:31 Neutrophils % (Manual) 34 L Band Neutrophils % 21 H Lymphocytes % (Manual) 26 Monocytes % (Manual) 15 H Eosinophils % (Manual) 2 Metamyelocytes % 2 Abs Neuts (Manual) 2.6 Lymphocytes # (Manual) 1.2 Monocytes # (Manual) 0.7 Eosinophils # (Manual) 0.1 Metamyelocytes # 0.1 Platelet Estimate NORMAL Plt Morphology Comment NORMAL RBC Morphology NORMAL Anion Gap Estim Creat Clear Calc Estimated GFR Random Glucose Lactic Acid 1.5 Calcium Total Bilirubin AST ALT Alkaline Phosphatase Total Protein Albumin Urine Color Urine Appearance Urine pH Ur Specific [place] Urine Protein Urine Glucose (UA) Urine Ketones Urine Blood Urine Nitrite Ur Leukocyte Esterase Urine RBC Urine WBC Ur Squamous Epith Cells Urine Bacteria Hyaline Casts Stl C. cayetanensis PCR Stool Rotavirus A PCR Stl Adenov F 40/41 PCR Stool Astrovirus (PCR) Stool Campylobacter PCR Stool Cryptosporidium PCR Stl Sh Tox Pr E STEC PCR Stool E coli O157 PCR Stl Enterotoxigenic E PCR Stool EPEC (PCR) Stool EAEC (PCR) Stl E. histolytica PCR Stool Giardia Lamblia PCR Stl P. shigelloides PCR Stool Salmonella PCR Stool Sapovirus (PCR) Stl Shigella/EIEC PCR St Y.enterocolitica PCR Stool Vibrio (PCR) Stl Vibrio cholerae PCR Stl Norovirus GI/GII PCR Urine Opiates Screen Urine Fentanyl Screen Ur Barbiturates Screen Ur Phencyclidine Scrn Ur Amphetamines Screen U Benzodiazepines Scrn Urine Cocaine Screen U Marijuana (THC) Screen C. difficile Tox B Gene Influenza Type A (PCR) NEGATIVE Influenza Type B (PCR) NEGATIVE RSV RNA Qual (PCR) NEGATIVE SARS-CoV-2 RNA (RT-PCR) NEGATIVE 07/26/22 07/26/22 07/26/22 16:51 16:51 16:51 Neutrophils % (Manual) Band Neutrophils % Lymphocytes % (Manual) Monocytes % (Manual) Eosinophils % (Manual) Metamyelocytes % Abs Neuts (Manual) Lymphocytes # (Manual) Monocytes # (Manual) Eosinophils # (Manual) Metamyelocytes # Platelet Estimate Plt Morphology Comment RBC Morphology Anion Gap Estim Creat Clear Calc Estimated GFR Random Glucose Lactic Acid Calcium Total Bilirubin AST ALT Alkaline Phosphatase Total Protein Albumin Urine Color Yellow Cancelled Urine Appearance Clear Cancelled Urine pH 6.0 Cancelled Ur Specific [place] 1.010 Cancelled Urine Protein 30 (1+) H Cancelled Urine Glucose (UA) Negative Cancelled Urine Ketones Negative Cancelled Urine Blood Trace H Cancelled Urine Nitrite Negative Cancelled Ur Leukocyte Esterase Negative Cancelled Urine RBC 0-2 Urine WBC 0-5 Ur Squamous Epith Cells 11-20 Urine Bacteria None Seen Hyaline Casts 3-5 Stl C. cayetanensis PCR Stool Rotavirus A PCR Stl Adenov F 40/41 PCR Stool Astrovirus (PCR) Stool Campylobacter PCR Stool Cryptosporidium PCR Stl Sh Tox Pr E STEC PCR Stool E coli O157 PCR Stl Enterotoxigenic E PCR Stool EPEC (PCR) Stool EAEC (PCR) Stl E. histolytica PCR Stool Giardia Lamblia PCR Stl P. shigelloides PCR Stool Salmonella PCR Stool Sapovirus (PCR) Stl Shigella/EIEC PCR St Y.enterocolitica PCR Stool Vibrio (PCR) Stl Vibrio cholerae PCR Stl Norovirus GI/GII PCR Urine Opiates Screen Not Detected Urine Fentanyl Screen POSITIVE H Ur Barbiturates Screen Not Detected Ur Phencyclidine Scrn Not Detected Ur Amphetamines Screen Not Detected U Benzodiazepines Scrn Not Detected Urine Cocaine Screen POSITIVE H U Marijuana (THC) Screen Not Detected C. difficile Tox B Gene Influenza Type A (PCR) Influenza Type B (PCR) RSV RNA Qual (PCR) SARS-CoV-2 RNA (RT-PCR) 07/26/22 07/26/22 07/26/22 16:51 16:51 18:32 Neutrophils % (Manual) Band Neutrophils % Lymphocytes % (Manual) Monocytes % (Manual) Eosinophils % (Manual) Metamyelocytes % Abs Neuts (Manual) Lymphocytes # (Manual) Monocytes # (Manual) Eosinophils # (Manual) Metamyelocytes # Platelet Estimate Plt Morphology Comment RBC Morphology Anion Gap 13 Estim Creat Clear Calc 65.4 Estimated GFR 44 Random Glucose 121 H Lactic Acid Calcium 8.5 D Total Bilirubin AST ALT Alkaline Phosphatase Total Protein Albumin Urine Color Urine Appearance Urine pH Ur Specific [place] Urine Protein Urine Glucose (UA) Urine Ketones Urine Blood Urine Nitrite Ur Leukocyte Esterase Urine RBC Urine WBC Ur Squamous Epith Cells Urine Bacteria Hyaline Casts Stl C. cayetanensis PCR Not Detected Stool Rotavirus A PCR Not Detected Stl Adenov F 40/41 PCR Not Detected Stool Astrovirus (PCR) Not Detected Stool Campylobacter PCR Not Detected Stool Cryptosporidium PCR Not Detected Stl Sh Tox Pr E STEC PCR Not Detected Stool E coli O157 PCR Not applicable Stl Enterotoxigenic E PCR Not Detected Stool EPEC (PCR) Not Detected Stool EAEC (PCR) Not Detected Stl E. histolytica PCR Not Detected Stool Giardia Lamblia PCR Not Detected Stl P. shigelloides PCR Not Detected Stool Salmonella PCR Detected A Stool Sapovirus (PCR) Not Detected Stl Shigella/EIEC PCR Not Detected St Y.enterocolitica PCR Not Detected Stool Vibrio (PCR) Not Detected Stl Vibrio cholerae PCR Not Detected Stl Norovirus GI/GII PCR Not Detected Urine Opiates Screen Urine Fentanyl Screen Ur Barbiturates Screen Ur Phencyclidine Scrn Ur Amphetamines Screen U Benzodiazepines Scrn Urine Cocaine Screen U Marijuana (THC) Screen C. difficile Tox B Gene NEGATIVE Influenza Type A (PCR) Influenza Type B (PCR) RSV RNA Qual (PCR) SARS-CoV-2 RNA (RT-PCR) 07/27/22 07/27/22 06:31 06:31 Neutrophils % (Manual) Band Neutrophils % Lymphocytes % (Manual) Monocytes % (Manual) Eosinophils % (Manual) Metamyelocytes % Abs Neuts (Manual) Lymphocytes # (Manual) Monocytes # (Manual) Eosinophils # (Manual) Metamyelocytes # Platelet Estimate Plt Morphology Comment RBC Morphology Anion Gap 12 Estim Creat Clear Calc 122.5 Cancelled Estimated GFR > 60 Cancelled Random Glucose 72 Lactic Acid Calcium 8.6 Total Bilirubin 0.5 AST 17 ALT 30 Alkaline Phosphatase 55 Total Protein 6.0 L Albumin 3.3 L Urine Color Urine Appearance Urine pH Ur Specific [place] Urine Protein Urine Glucose (UA) Urine Ketones Urine Blood Urine Nitrite Ur Leukocyte Esterase Urine RBC Urine WBC Ur Squamous Epith Cells Urine Bacteria Hyaline Casts Stl C. cayetanensis PCR Stool Rotavirus A PCR Stl Adenov F 40/ PCR Stool Astrovirus (PCR) Stool Campylobacter PCR Stool Cryptosporidium PCR Stl Sh Tox Pr E STEC PCR Stool E coli O157 PCR Stl Enterotoxigenic E PCR Stool EPEC (PCR) Stool EAEC (PCR) Stl E. histolytica PCR Stool Giardia Lamblia PCR Stl P. shigelloides PCR Stool Salmonella PCR Stool Sapovirus (PCR) Stl Shigella/EIEC PCR St Y.enterocolitica PCR Stool Vibrio (PCR) Stl Vibrio cholerae PCR Stl Norovirus GI/GII PCR Urine Opiates Screen Urine Fentanyl Screen Ur Barbiturates Screen Ur Phencyclidine Scrn Ur Amphetamines Screen U Benzodiazepines Scrn Urine Cocaine Screen U Marijuana (THC) Screen C. difficile Tox B Gene Influenza Type A (PCR) Influenza Type B (PCR) RSV RNA Qual (PCR) SARS-CoV-2 RNA (RT-PCR) Microbiology Microbiology Results: Microbiology 07/26/22 12:31 Blood Culture - Preliminary Blood - Venous Prelim: GNR Gram Stain only Assessment and Plan (1) Acute renal failure: Status: Acute Plan 37 year old IVDU admitted with Abd pain, JUAN MANUEL, and vomiting? that started 2 days ago with no precipitating factors Salmonella with nausea, vomiting and diarrhea. Resolving noted bandemia initially normal lactic acid IV fluids Abd CT showing colitis likely secondary to salmonella that was positive on stool studies, UA neg broad spectrum abx initially, now on Levaquin ID consult GNR bacteremia Continue Levaquin for tx of salmonella JUAN MANUEL. Resolved from vomiting, diarrhea, hypovolemia IV fluids Hyponatremia. Resolved from vomiting, hypovolemia IV fluids IVDU On Methadone, continue home dose 120mg RN to verify in the am addiction consult Mental health continue home medications Smoker NRT discused cessation DVT prophylaxis with heparin Attending Dr. Garcia Full code Continued hospital care for treatment of JUAN MANUEL, hyponatremia and abdominal pain requiring IV fluids, IV abx and frequent lab monitoring. Time Spent With Patient Time: Total time managing care of this patient today ____ minutes. Quality Stroke Does the patient have a stroke diagnosis?: No VTE Prior VTE?: No VTE Risk Level:: Medical - moderate - high VTE Device Contraindication: Treatment Not Indicated VTE Drug Contraindication: N/A - Med Ordered
[2022-07-27 11:23] VITALS: BP 110/70; PULSE 86; RESP 18; TEMP 36.6; O2SAT 98
--- NOTE | 2022-07-27 11:23 | MHC.RECOVRN ---
Attempted to meet with pt after consult placed to Addiction Medicine for substance use. Pt sitting in bed, asleep, does not wake to voice. Chart reviewed, pt receiving methadone. Will follow up tomorrow to discuss recovery resources.
[2022-07-27 11:37] LABS: Magnesium 2.1 mg/dL (1.6-2.6)
[2022-07-27] MEDS: levoFLOXacin/D5W 750 MG/150 ML PIGGYBACK 100 MG IV (12:47)
[2022-07-27] MEDS: Nicotine Polacrilex 2 MG GUM 4 MG BUCCAL (15:22)
[2022-07-27 15:43] VITALS: BP 115/60; PULSE 59; RESP 14; TEMP 36.9; O2SAT 96
--- NOTE | 2022-07-27 17:23 | PC.NURSE ---
Pt appears increasingly lethargic after arrival of visitor. The two were seen going into the bathroom together via VMT, where they remained for several minutes. The room then had a strong cigarette odor. Newspaper [employer] was called and the two were found to have cigarettes on them and appeared to be nodding off in the patients bed. After being instructed to keep an eye on the patient, the visitor was seen sleeping with multiple cookies sticking out of her mouth. security was called and they searched the room again. Patient is no longer permitted to have visitors.
--- NOTE | 2022-07-27 18:06 | P.EN_ITS ---
Event Note Date of Service: 07/27/22 Event Note: Requested to see patient after nurse noted pinpoint pupil following after patient visitor departed. Per the nurse, the patient's girlfriend visited and the two were noted to fall asleep in bed. The girlfriend fell asleep with cookies in her mouth. Security was called given concern over substance use as patient had also been caught smoking a cigarette in the room. While security was en route to room, nurse reports toilet flushed multiple times and the patient w as seen handing something to his girlfriend after which she departed. Security search of the room did not yield any illicit substances or contraband. The patient's pupils at that time were noted to be fixed and pinpoint. He was noted to be hemodynamically stable and RR >12. On my exam, patients pupils pinpoint and minimally reactive to light. He denies any drug use in the hospital. He is somnolant but arousable but falls asleep again on my exam. There is strong suspicion for opiate use at this time. No further visitors. Recommend neuro checks q1h x 2, then q4h. Monitor RR closely. Narcan prn added for RR <10. Time Spent With Patient Time: Total time managing care of this patient today ____ minutes.
--- NOTE | 2022-07-27 18:58 | PC.NURSE ---
hospitalist angela collins came to bedside to assess patient after security left. Neuro checks and PRN narcan ordered. Report given to Alissa MCCOLLUM from hourly shift manager.
[2022-07-27 19:32] VITALS: BP 109/60; PULSE 53; RESP 13; TEMP 36.1; O2SAT 96
[2022-07-27] MEDS: risperiDONE 2 MG TABLET 4 MG PO (20:25)
[2022-07-27] MEDS: OLANZapine 10 MG TABLET PO (20:25)
[2022-07-27] MEDS: Benztropine Mesylate 1 MG TABLET PO (20:25)
[2022-07-27 23:24] VITALS: BP 135/74; PULSE 58; RESP 14; TEMP 36.2; O2SAT 99
[2022-07-28 02:27] VITALS: BP 126/77; PULSE 58; RESP 12; TEMP 36.2; O2SAT 93
[2022-07-28] MEDS: 0.9 % Sodium Chloride 1,000 ML 100 ML IVCONT (04:54)
[2022-07-28] MEDS: Heparin Sodium,Porcine 5,000 UNIT/ML VIAL 5000 UNIT SUBCUT ×2 (04:56→17:09)
[2022-07-28 07:26] LABS: Hemoglobin 11.5 g/dl (14.0-18.0); Mean Corpuscular HGB Conc 33.8 g/dl (31.0-36.0); Mean Corpuscular Hemoglobin 29.4 pg (27.0-33.0); Mean Platelet Volume 9.9 fL (9.4-12.4); Platelet Count 159 X10*3/uL (160-400); Red Blood Count 3.91 X10*6/uL (4.60-5.80); Red Cell Distribution Width 12.4 % (11.0-16.0); White Blood Count 4.6 X10*3/uL (4.8-10.8)
[2022-07-28 07:36] LABS: Anion Gap 10 (12-20); Blood Urea Nitrogen 12 mg/dL (9-16); Calcium 8.7 mg/dL (8.4-10.2); Carbon Dioxide 24 mmol/L (22-29); Chloride 111 mmol/L (96-108); Creatinine Clr Calc Pharmacy 115.1; Creatinine Clr Calc Pharmacy 116.2; Estimated Glomerular Filt Rate > 60; Glucose Random 78 mg/dL (60-115); Potassium 3.5 mmol/L (3.3-5.1); Sodium 141 mmol/L (135-145)
[2022-07-28 08:00] VITALS: BP 131/77; PULSE 48; RESP 20; TEMP 36.3; O2SAT 96
--- NOTE | 2022-07-28 08:04 | P.PNIM_ITS ---
Subjective Subjective Date of Service: 07/28/22 Physical Exam Vital Signs: Vital Signs: Last Vital Signs Temp 97.2 F 07/28/22 02:27 Pulse 58 07/28/22 02:27 Resp 12 07/28/22 02:27 BP 126/77 07/28/22 02:27 Pulse Ox 93 07/28/22 02:27 O2 Del Method Room Air 07/28/22 02:27 BMI result Body Mass Index 30.3 Objective Data Active Medications Acetaminophen (Acetaminophen 325 Mg Tablet) 650 mg PO Q6H PRN PRN Reason: Pain, Mild (Pain Scale 1-3) Benztropine Mesylate (Benztropine Mesylate 1 Mg Tablet) 1 mg PO BEDTIME [facility] Last Admin: 07/27/22 20:25 Dose: 1 mg Documented By: GILMER Fluoxetine HCl (Fluoxetine Hcl 20 Mg Capsule) 20 mg PO DAILY [facility] Last Admin: 07/27/22 09:11 Dose: 20 mg Documented By: ROBERTA Heparin Sodium (Porcine) (Heparin Sodium,Porcine 5,000 Unit/Ml Vial) 5,000 unit SUBCUT Q12H [facility] Last Admin: 07/28/22 04:56 Dose: 5,000 unit Documented By: GILMER Sodium Chloride (Ns) 1,000 mls @ 100 mls/hr IVCONT .Q10H [facility] Last Admin: 07/28/22 04:54 Dose: 100 mls/hr Documented By: GILMER Levofloxacin (Levaquin) 750 mg in 150 mls @ 100 mls/hr IV Q24H [facility] Last Infusion: 07/27/22 14:34 Dose: 0 mls/hr Documented By: ROBERTA Lorazepam (Lorazepam 2 Mg/Ml Vial) 1 mg IVPUSH Q4H PRN PRN Reason: withdrawal Methadone HCl (Methadone Hcl 20 Mg/2 Ml Oral.Conc) 120 mg PO DAILY [facility] Last Admin: 07/27/22 09:11 Dose: 120 mg Documented By: ROBERTA Naloxone HCl (Naloxone Hcl 0.4 Mg/Ml Vial) 0.4 mg IVPUSH Q2M PRN PRN Reason: Respiratory Rate < 10 Nicotine Polacrilex (Nicotine Polacrilex 2 Mg Gum) 4 mg BUCCAL Q2H PRN PRN Reason: nicotine cravings Last Admin: 07/27/22 15:22 Dose: 4 mg Documented By: FOSTEKR Nicotine Polacrilex (Nicotine Polacrilex 2 Mg Gum) 2 mg BUCCAL Q2H PRN PRN Reason: withdrawal Olanzapine (Olanzapine 10 Mg Tablet) 10 mg PO BEDTIME [facility] Last Admin: 07/27/22 20:25 Dose: 10 mg Documented By: GILMER Ondansetron HCl (Ondansetron Hcl 4 Mg/2 Ml Vial) 4 mg IVPUSH Q8H PRN PRN Reason: Nausea and Vomiting Pharmacy Consult (Consult Rx Perform Med Rec) 1 each MISCELLANE ONCE PRN PRN Reason: Consult order Risperidone (Risperidone 2 Mg Tablet) 4 mg PO BEDTIME [facility] Last Admin: 07/27/22 20:25 Dose: 4 mg Documented By: GILMER Sodium Chloride (0.9 % Sodium Chloride Flush 3 Ml Syringe) 3 ml IVFLUSH QSHIFT [facility] Last Admin: 07/27/22 20:26 Dose: 3 ml Documented By: GILMER Labs 07/28/22 06:28 07/28/22 06:28 Labs: Laboratory Results - last 24 hr 07/26/22 07/27/22 07/28/22 16:51 06:31 06:28 MCV 87.0 MCH 29.4 MCHC 33.8 RDW 12.4 Plt Count 159 L MPV 9.9 Absolute Nucleated RBC 0.000 Nucleated RBC % (auto) 0.0 Anion Gap Estim Creat Clear Calc Estimated GFR Random Glucose Calcium Magnesium 2.1 Stl C. cayetanensis PCR Not Detected Stool Rotavirus A PCR Not Detected Stl Adenov F 40/41 PCR Not Detected Stool Astrovirus (PCR) Not Detected Stool Campylobacter PCR Not Detected Stool Cryptosporidium PCR Not Detected Stl Sh Tox Pr E STEC PCR Not Detected Stool E coli O157 PCR Not applicable Stl Enterotoxigenic E PCR Not Detected Stool EPEC (PCR) Not Detected Stool EAEC (PCR) Not Detected Stl E. histolytica PCR Not Detected Stool Giardia Lamblia PCR Not Detected Stl P. shigelloides PCR Not Detected Stool Salmonella PCR Detected A Stool Sapovirus (PCR) Not Detected Stl Shigella/EIEC PCR Not Detected St Y.enterocolitica PCR Not Detected Stool Vibrio (PCR) Not Detected Stl Vibrio cholerae PCR Not Detected Stl Norovirus GI/GII PCR Not Detected 07/28/22 07/28/22 06:28 06:28 MCV MCH MCHC RDW Plt Count MPV Absolute Nucleated RBC Nucleated RBC % (auto) Anion Gap 10 L Estim Creat Clear Calc 115.1 116.2 Estimated GFR > 60 > 60 Random Glucose 78 Calcium 8.7 Magnesium Stl C. cayetanensis PCR Stool Rotavirus A PCR Stl Adenov F 40/41 PCR Stool Astrovirus (PCR) Stool Campylobacter PCR Stool Cryptosporidium PCR Stl Sh Tox Pr E STEC PCR Stool E coli O157 PCR Stl Enterotoxigenic E PCR Stool EPEC (PCR) Stool EAEC (PCR) Stl E. histolytica PCR Stool Giardia Lamblia PCR Stl P. shigelloides PCR Stool Salmonella PCR Stool Sapovirus (PCR) Stl Shigella/EIEC PCR St Y.enterocolitica PCR Stool Vibrio (PCR) Stl Vibrio cholerae PCR Stl Norovirus GI/GII PCR Microbiology Microbiology Results: Microbiology 07/26/22 12:31 Blood Culture - Preliminary Blood - Venous Gram negative kelley 07/27/22 02:31 Blood Culture - Preliminary Blood - Venous No growth after 24 hours. 07/27/22 02:31 Blood Culture - Preliminary Blood - Venous No growth after 24 hours. 07/26/22 12:31 Blood Culture - Preliminary Blood - Venous No growth after 24 hours. Assessment and Plan (1) Acute renal failure: Status: Acute Plan 37 year old IVDU admitted with Abd pain, JUAN MANUEL, and vomiting? that started 2 days ago with no precipitating factors Salmonella with nausea, vomiting and diarrhea. Resolving noted bandemia initially normal lactic acid IV fluids Abd CT showing colitis likely secondary to salmonella that was positive on stool studies, UA neg broad spectrum abx initially, now on Levaquin ID consult GNR bacteremia 1/2 Continue Levaquin for tx of salmonella follow final cx ID consult IVDU suspected drug use while inpatient with visitor security called, camera in room, no visitors allowed On Methadone, continue home dose 120mg, consider lower dose as patient is quite somnolent addiction consult JUAN MANUEL. Resolved from vomiting, diarrhea, hypovolemia IV fluids Hyponatremia. Resolved from vomiting, hypovolemia IV fluids Mental health continue home medications Smoker NRT discused cessation DVT prophylaxis with heparin Attending Dr. Prince Full code Continued hospital care for treatment of JUAN MANUEL, hyponatremia and abdominal pain requiring IV fluids, IV abx and frequent lab monitoring. Time Spent With Patient Time: Total time managing care of this patient today ____ minutes. Quality Stroke Does the patient have a stroke diagnosis?: No VTE Prior VTE?: No VTE Risk Level:: Medical - moderate - high VTE Device Contraindication: Treatment Not Indicated VTE Drug Contraindication: N/A - Med Ordered
[2022-07-28] MEDS: FLUoxetine HCl 20 MG CAPSULE PO (09:45)
--- NOTE | 2022-07-28 10:38 | MHC.CM.PN ---
Patient has not yet been medically cleared for dc (IV ABT); home is the goal and CM will continue to follow.
[2022-07-28 12:00] VITALS: BP 118/72; PULSE 57; RESP 20; TEMP 37; O2SAT 96
[2022-07-28] MEDS: levoFLOXacin/D5W 750 MG/150 ML PIGGYBACK 100 MG IV (12:20)
--- NOTE | 2022-07-28 15:00 | HO.ADDICTPRO ---
Subjective Subjective Date of Service: 07/28/22 Reason For Visit: JUAN MANUEL Interim History: Patient seen in follow up OUD, currently in treatment--methadone dose 120mg QD Per documentation, concern for illicit opioid use during hospitalization on 07/27. This morning, concern for what appeared to be excessive drowsiness. Seen by this senior medical writer early AM, patient unable to keep his eyes open or engage in interview. Advised RN to hold AM dose until he was more awake. By 1400 patient still reportedly asleep, however he did wake to eat his lunch. Seen by this senior medical writer again and chemical engineering teacher. Patient able to wake and engage in interview--though providing minimal responses. He states that he sleeps all day like this at home. This senior medical writer verbalized to patient concern during hospitalization due to appearance of oversedation. This senior medical writer advised patient that methadone dose would be reduced for today and resume at regular dose tomorrow. Patient agreeable. Did not report any withdrawal sx and did not appear be to be experiencing any discomfort, tremor, or diaphoresis. Review of Systems Constitutional: Reports as per HPI and Reports daytime sleepiness Mental Status Exam Mental Status Exam Affect Description: Blunted Speech Pattern: Clear Judgement: Fair Diagnostics Vital Signs (24Hr): Vital Signs - 24 hr 07/27/22 15:43 07/27/22 19:32 07/27/22 23:24 Temperature 98.4 F 96.9 F 97.1 F Pulse Rate 59 53 58 Respiratory Rate 14 13 14 Blood Pressure 115/60 109/60 135/74 Pulse Oximetry 96 96 99 Oxygen Delivery Method Room Air Room Air Room Air 07/28/22 02:27 07/28/22 08:00 07/28/22 12:00 Temperature 97.2 F 97.4 F 98.6 F Pulse Rate 58 48 L 57 Respiratory Rate 12 20 20 Blood Pressure 126/77 131/77 118/72 Pulse Oximetry 93 96 96 Oxygen Delivery Method Room Air Room Air Room Air BMI result Body Mass Index 30.3 Labs 07/28/22 06:28 07/28/22 06:28 Labs: Laboratory Results - last 48 hr 07/26/22 07/26/22 07/26/22 16:51 16:51 16:51 WBC RBC Hgb Hct MCV MCH MCHC RDW Plt Count MPV Absolute Nucleated RBC Nucleated RBC % (auto) Sodium Potassium Chloride Carbon Dioxide Anion Gap BUN Creatinine Estim Creat Clear Calc Estimated GFR Random Glucose Calcium Magnesium Total Bilirubin AST ALT Alkaline Phosphatase Total Protein Albumin Urine Color Yellow Cancelled Urine Appearance Clear Cancelled Urine pH 6.0 Cancelled Ur Specific Omro 1.010 Cancelled Urine Protein 30 (1+) H Cancelled Urine Glucose (UA) Negative Cancelled Urine Ketones Negative Cancelled Urine Blood Trace H Cancelled Urine Nitrite Negative Cancelled Ur Leukocyte Esterase Negative Cancelled Urine RBC 0-2 Urine WBC 0-5 Ur Squamous Epith Cells 11-20 Urine Bacteria None Seen Hyaline Casts 3-5 Stl C. cayetanensis PCR Stool Rotavirus A PCR Stl Adenov F 40/ PCR Stool Astrovirus (PCR) Stool Campylobacter PCR Stool Cryptosporidium PCR Stl Sh Tox Pr E STEC PCR Stool E coli O157 PCR Stl Enterotoxigenic E PCR Stool EPEC (PCR) Stool EAEC (PCR) Stl E. histolytica PCR Stool Giardia Lamblia PCR Stl P. shigelloides PCR Stool Salmonella PCR Stool Sapovirus (PCR) Stl Shigella/EIEC PCR St Y.enterocolitica PCR Stool Vibrio (PCR) Stl Vibrio cholerae PCR Stl Norovirus GI/GII PCR Urine Opiates Screen Not Detected Urine Fentanyl Screen POSITIVE H Ur Barbiturates Screen Not Detected Ur Phencyclidine Scrn Not Detected Ur Amphetamines Screen Not Detected U Benzodiazepines Scrn Not Detected Urine Cocaine Screen POSITIVE H U Marijuana (THC) Screen Not Detected C. difficile Tox B Gene 07/26/22 07/26/22 07/26/22 16:51 16:51 18:32 WBC RBC Hgb Hct MCV MCH MCHC RDW Plt Count MPV Absolute Nucleated RBC Nucleated RBC % (auto) Sodium 135 Potassium 3.7 Chloride 105 Carbon Dioxide 21 L Anion Gap 13 BUN 28 H Creatinine 1.74 H Estim Creat Clear Calc 65.4 Estimated GFR 44 Random Glucose 121 H Calcium 8.5 D Magnesium Total Bilirubin AST ALT Alkaline Phosphatase Total Protein Albumin Urine Color Urine Appearance Urine pH Ur Specific Omro Urine Protein Urine Glucose (UA) Urine Ketones Urine Blood Urine Nitrite Ur Leukocyte Esterase Urine RBC Urine WBC Ur Squamous Epith Cells Urine Bacteria Hyaline Casts Stl C. cayetanensis PCR Not Detected Stool Rotavirus A PCR Not Detected Stl Adenov F 40/ PCR Not Detected Stool Astrovirus (PCR) Not Detected Stool Campylobacter PCR Not Detected Stool Cryptosporidium PCR Not Detected Stl Sh Tox Pr E STEC PCR Not Detected Stool E coli O157 PCR Not applicable Stl Enterotoxigenic E PCR Not Detected Stool EPEC (PCR) Not Detected Stool EAEC (PCR) Not Detected Stl E. histolytica PCR Not Detected Stool Giardia Lamblia PCR Not Detected Stl P. shigelloides PCR Not Detected Stool Salmonella PCR Detected A Stool Sapovirus (PCR) Not Detected Stl Shigella/EIEC PCR Not Detected St Y.enterocolitica PCR Not Detected Stool Vibrio (PCR) Not Detected Stl Vibrio cholerae PCR Not Detected Stl Norovirus GI/GII PCR Not Detected Urine Opiates Screen Urine Fentanyl Screen Ur Barbiturates Screen Ur Phencyclidine Scrn Ur Amphetamines Screen U Benzodiazepines Scrn Urine Cocaine Screen U Marijuana (THC) Screen C. difficile Tox B Gene NEGATIVE 07/27/22 07/27/22 07/28/22 06:31 06:31 06:28 WBC 4.6 L RBC 3.91 L D Hgb 11.5 L D Hct 34.0 L MCV 87.0 MCH 29.4 MCHC 33.8 RDW 12.4 Plt Count 159 L MPV 9.9 Absolute Nucleated RBC 0.000 Nucleated RBC % (auto) 0.0 Sodium 136 Potassium 3.8 Chloride 107 Carbon Dioxide 21 L Anion Gap 12 BUN 16 Creatinine 0.93 Cancelled Estim Creat Clear Calc 122.5 Cancelled Estimated GFR > 60 Cancelled Random Glucose 72 Calcium 8.6 Magnesium 2.1 Total Bilirubin 0.5 AST 17 ALT 30 Alkaline Phosphatase 55 Total Protein 6.0 L Albumin 3.3 L Urine Color Urine Appearance Urine pH Ur Specific Omro Urine Protein Urine Glucose (UA) Urine Ketones Urine Blood Urine Nitrite Ur Leukocyte Esterase Urine RBC Urine WBC Ur Squamous Epith Cells Urine Bacteria Hyaline Casts Stl C. cayetanensis PCR Stool Rotavirus A PCR Stl Adenov F 40/41 PCR Stool Astrovirus (PCR) Stool Campylobacter PCR Stool Cryptosporidium PCR Stl Sh Tox Pr E STEC PCR Stool E coli O157 PCR Stl Enterotoxigenic E PCR Stool EPEC (PCR) Stool EAEC (PCR) Stl E. histolytica PCR Stool Giardia Lamblia PCR Stl P. shigelloides PCR Stool Salmonella PCR Stool Sapovirus (PCR) Stl Shigella/EIEC PCR St Y.enterocolitica PCR Stool Vibrio (PCR) Stl Vibrio cholerae PCR Stl Norovirus GI/GII PCR Urine Opiates Screen Urine Fentanyl Screen Ur Barbiturates Screen Ur Phencyclidine Scrn Ur Amphetamines Screen U Benzodiazepines Scrn Urine Cocaine Screen U Marijuana (THC) Screen C. difficile Tox B Gene 07/28/22 07/28/22 06:28 06:28 WBC RBC Hgb Hct MCV MCH MCHC RDW Plt Count MPV Absolute Nucleated RBC Nucleated RBC % (auto) Sodium 141 Potassium 3.5 Chloride 111 H Carbon Dioxide 24 Anion Gap 10 L BUN 12 Creatinine 0.99 0.98 Estim Creat Clear Calc 115.1 116.2 Estimated GFR > 60 > 60 Random Glucose 78 Calcium 8.7 Magnesium Total Bilirubin AST ALT Alkaline Phosphatase Total Protein Albumin Urine Color Urine Appearance Urine pH Ur Specific Omro Urine Protein Urine Glucose (UA) Urine Ketones Urine Blood Urine Nitrite Ur Leukocyte Esterase Urine RBC Urine WBC Ur Squamous Epith Cells Urine Bacteria Hyaline Casts Stl C. cayetanensis PCR Stool Rotavirus A PCR Stl Adenov F 40/41 PCR Stool Astrovirus (PCR) Stool Campylobacter PCR Stool Cryptosporidium PCR Stl Sh Tox Pr E STEC PCR Stool E coli O157 PCR Stl Enterotoxigenic E PCR Stool EPEC (PCR) Stool EAEC (PCR) Stl E. histolytica PCR Stool Giardia Lamblia PCR Stl P. shigelloides PCR Stool Salmonella PCR Stool Sapovirus (PCR) Stl Shigella/EIEC PCR St Y.enterocolitica PCR Stool Vibrio (PCR) Stl Vibrio cholerae PCR Stl Norovirus GI/GII PCR Urine Opiates Screen Urine Fentanyl Screen Ur Barbiturates Screen Ur Phencyclidine Scrn Ur Amphetamines Screen U Benzodiazepines Scrn Urine Cocaine Screen U Marijuana (THC) Screen C. difficile Tox B Gene Imaging Radiology Impressions: ITS Impressions Chest X-Ray 07/26/22 13:30 IMPRESSION: Unremarkable examination. Abdomen/Pelvis CT 07/26/22 16:52 IMPRESSION: 1. Equivocal mild wall thickening involving the splenic flexure transverse colon, equivocal for colitis. Recommend correlation with clinical symptoms. 2. Hepatic steatosis. Medications Medications Current Medications Acetaminophen (Acetaminophen 325 Mg Tablet) 650 mg PO Q6H PRN PRN Reason: Pain, Mild (Pain Scale 1-3) Benztropine Mesylate (Benztropine Mesylate 1 Mg Tablet) 1 mg PO BEDTIME [facility] Last Admin: 07/27/22 20:25 Dose: 1 mg Fluoxetine HCl (Fluoxetine Hcl 20 Mg Capsule) 20 mg PO DAILY [facility] Last Admin: 07/28/22 09:45 Dose: 20 mg Heparin Sodium (Porcine) (Heparin Sodium,Porcine 5,000 Unit/Ml Vial) 5,000 unit SUBCUT Q12H [facility] Last Admin: 07/28/22 04:56 Dose: 5,000 unit Levofloxacin (Levaquin) 750 mg in 150 mls @ 100 mls/hr IV Q24H [facility] Last Infusion: 07/28/22 14:29 Dose: Infused Lorazepam (Lorazepam 2 Mg/Ml Vial) 1 mg IVPUSH Q4H PRN PRN Reason: withdrawal Methadone HCl (Methadone Hcl 20 Mg/2 Ml Oral.Conc) 120 mg PO DAILY [facility] Last Admin: 07/27/22 09:11 Dose: 120 mg Naloxone HCl (Naloxone Hcl 0.4 Mg/Ml Vial) 0.4 mg IVPUSH Q2M PRN PRN Reason: Respiratory Rate < 10 Nicotine Polacrilex (Nicotine Polacrilex 2 Mg Gum) 4 mg BUCCAL Q2H PRN PRN Reason: nicotine cravings Last Admin: 07/27/22 15:22 Dose: 4 mg Nicotine Polacrilex (Nicotine Polacrilex 2 Mg Gum) 2 mg BUCCAL Q2H PRN PRN Reason: withdrawal Olanzapine (Olanzapine 10 Mg Tablet) 10 mg PO BEDTIME [facility] Last Admin: 07/27/22 20:25 Dose: 10 mg Ondansetron HCl (Ondansetron Hcl 4 Mg/2 Ml Vial) 4 mg IVPUSH Q8H PRN PRN Reason: Nausea and Vomiting Pharmacy Consult (Consult Rx Perform Med Rec) 1 each MISCELLANE ONCE PRN PRN Reason: Consult order Risperidone (Risperidone 2 Mg Tablet) 4 mg PO BEDTIME [facility] Last Admin: 07/27/22 20:25 Dose: 4 mg Sodium Chloride (0.9 % Sodium Chloride Flush 3 Ml Syringe) 3 ml IVFLUSH QSHIFT [facility] Last Admin: 07/27/22 20:26 Dose: 3 ml Allergies Allergies Allergy/AdvReac Type Severity Reaction Status Date / Time SEAFOOD Allergy Unknown HIVES Uncoded 01/12/20 16:49 Assessment & Plan Assessment & Plan (1) Opioid use disorder: Status: Acute Code(s): F11.90 - Opioid use, unspecified, uncomplicated Assessment and Plan: methadone 60mg today resume regular dose tomorrow if patient continues with somnolence, hold methadone discussed with covering RN Total time managing care of this patient today __40__ minutes.
[2022-07-28 15:14] VITALS: BP 122/79; PULSE 89; RESP 18; TEMP 37.1; O2SAT 98
--- NOTE | 2022-07-28 16:05 | P.CNID_ITS ---
History of Present Illness Data of Consult Service Date: 07/28/22 Requesting physician: Xin Cooney Primary Care Provider: GABE Hernández HPI Reason for consult: bacteremia,salmonella stool He presents with diarrhea last two days He had watery diarrhea He has schizoaffective disorder and unknown HIV risk' Review of Systems Review of Systems: Yes all other systems are reviewed and are negative PMFSH Past Medical History Medical History (Updated 07/28/22 @ 16:08 by Marycruz Parks MD) Bacteremia Hepatitis Latent tuberculosis Opioid use disorder, moderate, in early remission, on maintenance therapy Salmonella enteritis Family History Family history: reviewed and not pertinent Surgical History Surgical History No pertinent past surgical history Social History Social History Household Members: Significant Other Housing: Apartment Do you presently have visiting nurse or other home services: No Patient Tobacco Use Status: Current everyday Tobacco user Tobacco use type: Cigarette Cigarette Packs Per Day: 1 Cigarettes Per Day: 20.0 Smoked in Last 30 Days: Yes e-Cigarette/Vaping Use: Currently Using Second Hand Smoke Exposure: Yes Substance Use Type: Crack/Cocaine, Marijuana and Opiates Currently Displaying Signs/Symptoms of Drug Intoxication Withdrawal: No Have you been hit, kicked, punched, or otherwise hurt by someone within the past year? If so, by whom?: No Do you feel safe in your current relationship?: Yes Is there a partner from a previous relationship who is making you feel unsafe now?: No Are you made to feel afraid or neglected: No Orthodox Healthcare Practices: n/a Advance Directives: No Advance Directives Information Provided: Yes Do you have thoughts of harming others: None Do you have a plan to hurt others: No Plan Recently lost weight without trying: No Nutrition Risks: No Nutritional Risk Poor oral hygiene: Yes service: No Current occupational status: unemployed Sexual orientation: Straight/Heterosexual Meds Allergies Allergy/AdvReac Type Severity Reaction Status Date / Time SEAFOOD Allergy Unknown HIVES Uncoded 01/12/20 16:49 Active Medications: Current Medications Acetaminophen (Acetaminophen 325 Mg Tablet) 650 mg PO Q6H PRN PRN Reason: Pain, Mild (Pain Scale 1-3) Benztropine Mesylate (Benztropine Mesylate 1 Mg Tablet) 1 mg PO BEDTIME [facility] Last Admin: 07/27/22 20:25 Dose: 1 mg Fluoxetine HCl (Fluoxetine Hcl 20 Mg Capsule) 20 mg PO DAILY [facility] Last Admin: 07/28/22 09:45 Dose: 20 mg Heparin Sodium (Porcine) (Heparin Sodium,Porcine 5,000 Unit/Ml Vial) 5,000 unit SUBCUT Q12H [facility] Last Admin: 07/28/22 04:56 Dose: 5,000 unit Levofloxacin (Levaquin) 750 mg in 150 mls @ 100 mls/hr IV Q24H [facility] Last Infusion: 07/28/22 14:29 Dose: Infused Lorazepam (Lorazepam 2 Mg/Ml Vial) 1 mg IVPUSH Q4H PRN PRN Reason: withdrawal Methadone HCl (Methadone Hcl 20 Mg/2 Ml Oral.Conc) 120 mg PO DAILY [facility] Last Admin: 07/28/22 15:01 Dose: Not Given Naloxone HCl (Naloxone Hcl 0.4 Mg/Ml Vial) 0.4 mg IVPUSH Q2M PRN PRN Reason: Respiratory Rate < 10 Nicotine Polacrilex (Nicotine Polacrilex 2 Mg Gum) 4 mg BUCCAL Q2H PRN PRN Reason: nicotine cravings Last Admin: 07/27/22 15:22 Dose: 4 mg Nicotine Polacrilex (Nicotine Polacrilex 2 Mg Gum) 2 mg BUCCAL Q2H PRN PRN Reason: withdrawal Olanzapine (Olanzapine 10 Mg Tablet) 10 mg PO BEDTIME [facility] Last Admin: 07/27/22 20:25 Dose: 10 mg Ondansetron HCl (Ondansetron Hcl 4 Mg/2 Ml Vial) 4 mg IVPUSH Q8H PRN PRN Reason: Nausea and Vomiting Pharmacy Consult (Consult Rx Perform Med Rec) 1 each MISCELLANE ONCE PRN PRN Reason: Consult order Risperidone (Risperidone 2 Mg Tablet) 4 mg PO BEDTIME [facility] Last Admin: 07/27/22 20:25 Dose: 4 mg Sodium Chloride (0.9 % Sodium Chloride Flush 3 Ml Syringe) 3 ml IVFLUSH QSHIFT [facility] Last Admin: 07/27/22 20:26 Dose: 3 ml Home Medications Medication Instructions Recorded Confirmed Last Taken Type methadone 10 mg/mL oral concentrate 120 mg PO DAILY 07/01/21 07/27/22 07/26/22 History benztropine 1 mg tablet 1 mg PO BEDTIME 07/26/22 07/26/22 07/25/22 History fluoxetine 20 mg capsule (Prozac) 20 mg PO QAM 07/26/22 07/26/22 07/25/22 History olanzapine 10 mg tablet 10 mg PO BEDTIME 07/26/22 07/26/22 07/25/22 History risperidone 4 mg tablet (Risperdal) 4 mg PO BEDTIME 07/26/22 07/26/22 07/25/22 History Physical Exam Vital Signs: Vital Signs: Last Vital Signs Temp 98.7 F 07/28/22 15:14 Pulse 89 07/28/22 15:14 Resp 18 07/28/22 15:14 BP 122/79 07/28/22 15:14 Pulse Ox 98 07/28/22 15:14 O2 Del Method Room Air 07/28/22 15:14 BMI result Body Mass Index 30.3 Const: General: cooperative HEENT: Head: Yes normal to inspection Face and sinus: Yes normal facial exam Mouth: Normal oral and palatal mucosa present Teeth and gingiva: dentition normal Eyes: General: appearance normal, both eyes and all related structures Pupils: Equal, round and reactive pupils present Resp: Effort & Inspection: normal respiratory effort Cardio: Rate: regular rate Rhythm: regular rhythm GI: Palpation (GI): Soft to palpation and nontender : General: Yes no CVA tenderness Back/Spine/Pelvis: Back: no CVA tenderness Skin: General skin exam: no rashes or lesions noted Neuro: General: moves all extremities Cranial nerves: Yes Equal, round and reactive pupils present Extrem: General: Yes normal to inspection Psych: Other: not very interactive,doesnt give good history Results Labs 07/28/22 06:28 07/28/22 06:28 Labs: Short CBC 07/28/22 Range/Units 06:28 WBC 4.6 L (4.8-10.8) X10*3/uL Hgb 11.5 L D (14.0-18.0) g/dl Hct 34.0 L (42.0-52.0) % Plt Count 159 L (160-400) X10*3/uL BMP 07/28/22 07/28/22 06:28 06:28 Sodium 141 Potassium 3.5 Chloride 111 H Carbon Dioxide 24 BUN 12 Creatinine 0.99 0.98 Calcium 8.7 Microbiology Microbiology Results: Microbiology 07/26/22 12:31 Blood - Venous Blood Culture - Preliminary No growth after 48 hours. 07/26/22 12:31 Blood - Venous Blood Culture - Preliminary Gram negative kelley 07/27/22 02:31 Blood - Venous Blood Culture - Preliminary No growth after 24 hours. 07/27/22 02:31 Blood - Venous Blood Culture - Preliminary No growth after 24 hours. Assessment and Plan (1) Bacteremia: Status: Acute He has gram negative kelley blood He has salmonella stool PCR,possible same He has no known HIV and unaware Hepatitis C (2) Salmonella enteritis: Status: Acute Plan Continue po Levaquin total 14 d antibiotics There doesnt seem to be any secondary site such as aneursym. Should check for immunodeficiency such as HIV Time Spent With Patient Time: Total time managing care of this patient today ____ minutes.
[2022-07-28] MEDS: 0.9 % Sodium Chloride Flush 3 ML SYRINGE IVFLUSH ×2 (17:08→23:58)
[2022-07-28] MEDS: methADONE HCl 20 MG/2 ML ORAL.CONC 60 MG PO (17:08)
[2022-07-28 19:15] VITALS: BP 127/79; PULSE 52; RESP 18; TEMP 37.1; O2SAT 98
[2022-07-28] MEDS: risperiDONE 2 MG TABLET 4 MG PO (20:44)
[2022-07-28] MEDS: Benztropine Mesylate 1 MG TABLET PO (20:44)
[2022-07-28] MEDS: OLANZapine 10 MG TABLET PO (20:44)
[2022-07-28 23:42] VITALS: BP 125/83; PULSE 49; RESP 16; TEMP 37.2; O2SAT 95
[2022-07-29 03:39] VITALS: BP 124/73; PULSE 53; RESP 16; TEMP 37.2; O2SAT 96
[2022-07-29] MEDS: Heparin Sodium,Porcine 5,000 UNIT/ML VIAL 5000 UNIT SUBCUT (05:24)
[2022-07-29 07:19] LABS: Creatinine Clr Calc Pharmacy 105.5; Estimated Glomerular Filt Rate > 60
[2022-07-29 07:51] VITALS: BP 125/76; PULSE 52; RESP 20; TEMP 36.8; O2SAT 96
[2022-07-29] MEDS: 0.9 % Sodium Chloride Flush 3 ML SYRINGE IVFLUSH (08:31)
[2022-07-29] MEDS: FLUoxetine HCl 20 MG CAPSULE PO (08:31)
--- NOTE | 2022-07-29 10:46 | PM.DS ---
DS: Providers Provider Date of Service: 07/29/22 Date of admission: 07/26/22 16:06 Primary care physician: GABE Hernández Consults: 07/26/22 16:24 Addiction Medicine Routine Consulting Provider: Addiction Covering Reason for consultation: Heroine Has provider been notified: No 07/27/22 11:07 Consult to Infectious Diseases Routine Consulting Provider: [facility] Infectious Disease Reason for consultation: salmonella Has provider been notified: No DS: Diagnosis Discharge Diagnosis (1) Bacteremia: Status: Acute (2) Salmonella enteritis: Status: Acute DS: Summary Hospital Course Hospital Course: 37 year old man presenting to the ED with 2 days of fever, chills, nausea, vomiting, diarrhea,body and abdominal pain. He has a hx of IVDU and last used yesterday. He denies chest pain, recent travel, sick contacts, trauma. Lives with his spouse.? Sodium was 132, creatinine 2.79 with no history of chronic kidney disease, normal lactic acid, no fever, blood pressure on the softer side, 106/57, bandemia of 21. Patient was given vancomycin, Zosyn, 2 L of IV fluids.? Will be admitted for further management and treatment of acute JUAN MANUEL and hyponatremia. Salmonella with nausea, vomiting and diarrhea with noted bandemia and bacteremia with 1/2 cx pos for salmonella treated initially with IV levaquin, IV fluids and NPO, diet advanced to regular with cessation in symptoms. NO hx of liver disease although he does have untreated hep c, no hx of sickle cell/spleen present. HIV serology pending. He is to follow up with Dr. Parks in office to further investigate possible etiology of salmonella bacteremia. Continue 14 days Levaquin. noted bandemia initially IVDU suspected drug use while inpatient with visitor security called, camera in room, no visitors allowed On Methadone but dose of 120mg stopped due to lethergy discussed cessation JUAN MANUEL. Resolved from vomiting, diarrhea, hypovolemia treated with IV fluids Hyponatremia. Resolved from vomiting, hypovolemia treated with IV fluids Mental health continue home medications Smoker NRT discused cessation Time Spent with Patient Time attestation: Total time managing care of this patient today ____ minutes. Discharge coordination time: Greater than 30 minutes Quality: Safe Use of Opioids Does Pt have an Active Cancer Diagnosis on the Problem List?: No Quality: Stroke Does the patient have a stroke diagnosis?: No Physical Exam Vital Signs: Vital Signs: Last Vital Signs Temp 98.3 F 07/29/22 07:51 Pulse 52 07/29/22 07:51 Resp 20 07/29/22 07:51 BP 125/76 07/29/22 07:51 Pulse Ox 96 07/29/22 07:51 O2 Del Method Room Air 07/29/22 07:51 BMI result Body Mass Index 30.3 Appearing in no acute distress head is normocephalic atraumatic eyes pupils are PERRLA sclera is anicteric mouth throat mucous membranes are intact and moist neck is supple no lymphadenopathy, no JVD noted lung sounds are clear to auscultation heart regular rate rhythm, clear S1, S2 positive bowel sounds, abdomen is soft, nontender neuro patient is alert x3, no focal deficits DS: Data Data Completed and Pending Labs on day of discharge: Laboratory Results - last 24 hr 07/29/22 06:28 Creatinine 1.08 Estim Creat Clear Calc 105.5 Estimated GFR > 60 Preliminary micro results at discharge 07/27/22 02:31 Blood Culture - Preliminary Blood - Venous No growth after 48 hours. 07/27/22 02:31 Blood Culture - Preliminary Blood - Venous No growth after 48 hours. 07/26/22 12:31 Blood Culture - Preliminary Blood - Venous No growth after 48 hours. Discharge Plan Discharge Anticipated Discharge Date/Time: 07/29/22 10:41 Patient Disposition: Home, Self-Care Discharge Diagnosis: Salmonella bacteremia Salmonella enteritis Referrals: Marycruz Parks MD [Physician] - 1 Week Mary Ying FNP [Primary Care Provider] - 1 Week Discharge Medications: New levofloxacin 750 mg tablet 750 mg PO DAILY Qty: 14 0RF Continued methadone 10 mg/mL Concentrate 120 mg PO DAILY nicotine (polacrilex) 2 mg Gum 4 mg buccal Q2H PRN (Reason: nicotine cravings) 30 Days Qty: 100 0RF risperidone [Risperdal] 4 mg tablet 4 mg PO BEDTIME olanzapine 10 mg tablet 10 mg PO BEDTIME benztropine 1 mg tablet 1 mg PO BEDTIME fluoxetine [Prozac] 20 mg capsule 20 mg PO QAM Discharge Orders: Discharge Order (Routine); Ordered 07/29/22 Ordered By: Xin Cooney Diet: Advance to usual diet Activity on Discharge: As tolerated Stand Alone Forms: Patient Portal Discharge page Care Plan Goals: Follow-up with infectious disease provider Dr. Parks, for results salmonella in the blood as well as in the stool Do not use any type of drugs including IV, oral or inhalation Health Concerns: Salmonella bacteremia salmonella infection IV drug use Plan of Treatment: Continue taking Levaquin for 14 days salmonella in your blood and in your stool Assessment: See discharge summary
--- NOTE | 2022-07-29 10:48 | MHC.CM.PN ---
Patient has been medically cleared for dc to home today, self care.
[2022-07-29 11:21] VITALS: BP 137/78; PULSE 55; RESP 20; TEMP 37; O2SAT 93
[2022-07-30 07:24] LABS: HIV AB/AG Nonreactive (Nonreactive); HIV Num 1 0.18 S/CO (0.00-0.99)
== END 2022-07-29 12:46 | disposition home or self-care (01) | DRG 248 ==
LOC: HO.ED 13:02 → HO.EDOVER 16:26 → HO.IMC 16:52
PROVIDERS: Internal Medicine; Physician Assistant; Admitting Provider Nurse Practitioner Acute Care; Emergency Provider Emergency Medicine; PCP Registered Nurse; Visit Provider Nurse Practitioner Acute Care
DX: A02.0 Salmonella enteritis (principal); N17.9 Acute kidney failure, unspecified; R78.81 Bacteremia; E87.1 Hypo-osmolality and hyponatremia; E86.1 Hypovolemia; F11.20 Opioid dependence, uncomplicated; F17.210 Nicotine dependence, cigarettes, uncomplicated; Z71.6 Tobacco abuse counseling; Z20.822 Contact with and (suspected) exposure to COVID-19; Z79.899 Other long term (current) drug therapy
CPT/HCPCS: 0241U; 36415; 71045; 74176; 80048; 80053; 80307; 81001; 81003; 82565; 83605; 83735; 85007; 85025; 85027; 87040; 87077; 87186; 87205; 87389; 87493; 87502; 87507; 87635; 99285; J1643; J1956; J2405; J2543; J3370; J3371

== ENCOUNTER 2022-09-16 22:36 | Emergency (ER) | payer MEDICAID, SELFPAY ==
[2022-09-16 22:47] VITALS: BP 151/91; PULSE 95; O2SAT 100
[2022-09-16 23:27] VITALS: BP 129/80; BP 148/79; PULSE 89; PULSE 99; RESP 18; TEMP 37; O2SAT 97; BMI 28.1
--- NOTE | 2022-09-16 23:40 | ED.ANXIETY ---
HPI - Anxiety General Chief Complaint: Anxiety Stated Complaint: feels funny after drug use Time Seen by Provider: 09/16/22 23:02 Source: patient and family Mode of arrival: ambulatory Limitations: no limitations History of Present Illness HPI narrative: Patient with history of cocaine and opiate use does not use very often today use cocaine and heroin felt very anxious short of breath panicky feeling heat inside the body. Related Data Home Medications Medication Instructions Recorded Confirmed methadone 10 mg/mL oral concentrate 120 mg PO DAILY 07/01/21 07/27/22 benztropine 1 mg tablet 1 mg PO BEDTIME 07/26/22 07/26/22 fluoxetine 20 mg capsule (Prozac) 20 mg PO QAM 07/26/22 07/26/22 olanzapine 10 mg tablet 10 mg PO BEDTIME 07/26/22 07/26/22 risperidone 4 mg tablet (Risperdal) 4 mg PO BEDTIME 07/26/22 07/26/22 Previous Rx's Medication Instructions Recorded nicotine (polacrilex) 2 mg gum 4 mg buccal Q2H PRN nicotine 07/03/21 cravings 30 days #100 ea levofloxacin 750 mg tablet 750 mg PO DAILY #14 tabs 07/29/22 Allergies Allergy/AdvReac Type Severity Reaction Status Date / Time SEAFOOD Allergy Unknown HIVES Uncoded 01/12/20 16:49 Review of Systems Review of Systems: Yes all other systems are reviewed and are negative PMFSH Past Medical History Medical History Bacteremia Hepatitis Latent tuberculosis Opioid use disorder, moderate, in early remission, on maintenance therapy Salmonella enteritis Surgical History No pertinent past surgical history Social History Social History Household Members: Significant Other Housing: Apartment Do you presently have visiting nurse or other home services: No Patient Tobacco Use Status: Current everyday Tobacco user Tobacco use type: Cigarette Cigarette Packs Per Day: 1 Cigarettes Per Day: 20.0 e-Cigarette/Vaping Use: Currently Using Second Hand Smoke Exposure: Yes Substance Use Type: Crack/Cocaine, Marijuana and Opiates service: No Current occupational status: unemployed Sexual orientation: Straight/Heterosexual Physical Exam Vital Signs: Vital Signs: Last Vital Signs Temp 98.6 F 09/16/22 23:27 Pulse 89 09/16/22 23:27 Resp 18 09/16/22 23:27 BP 129/80 09/16/22 23:27 Pulse Ox 97 09/16/22 23:27 O2 Del Method Room Air 09/16/22 23:27 BMI result Body Mass Index 28.1 Appearance: Alert. Oriented X3. No acute distress. Anxious Eyes: PERRLA, No Nystagmus ENT: Pharynx normal. Oral Mucosa moist Neck: Normal inspection. Neck supple. CVS: Normal heart rate and rhythm. Pulses normal. Respiratory: No respiratory distress. Equal air entry bilateral, no wheezing/rales/rhonchi Abdomen: Soft and nontender. Bowel sounds are present, Skin: Skin warm and dry. Normal skin color. Normal skin turgor. Extremities: No lower extremity edema. No calf tenderness Neuro: Oriented X 3. No motor deficit. Medical Decision Making Medical Decision Making MDM Narrative: Patient with panic attack after taking cocaine and heroin feeling much better now will give 1 dose of Ativan and discharge patient home Discharge Plan Discharge Clinical Impression: Cocaine use disorder, Opioid use disorder, Acute anxiety Patient Disposition: Home, Self-Care Instructions: Polysubstance Abuse (ED), Anxiety (ED) Additional Instructions: Stop using drugs Any follow with detox as needed Prescriptions: No Action methadone 10 mg/mL Concentrate 120 mg PO DAILY nicotine (polacrilex) 2 mg Gum 4 mg buccal Q2H PRN (Reason: nicotine cravings) 30 Days Qty: 100 0RF risperidone [Risperdal] 4 mg tablet 4 mg PO BEDTIME olanzapine 10 mg tablet 10 mg PO BEDTIME benztropine 1 mg tablet 1 mg PO BEDTIME fluoxetine [Prozac] 20 mg capsule 20 mg PO QAM levofloxacin 750 mg tablet 750 mg PO DAILY Qty: 14 0RF
[2022-09-16] MEDS: LORazepam 1 MG TABLET PO (23:58)
== END 2022-09-17 00:01 | disposition home or self-care (01) ==
PROVIDERS: Emergency Provider Internal Medicine; PCP Registered Nurse
DX: F14.99 Cocaine use, unspecified with unspecified cocaine-induced disorder (principal); F11.20 Opioid dependence, uncomplicated; F41.9 Anxiety disorder, unspecified
CPT/HCPCS: 99282; 99283

== ENCOUNTER 2023-10-06 21:05 | Inpatient (IN) | payer MEDICAID, OTHER, SELFPAY ==
[2023-10-06 21:24] VITALS: BP 152/97; BP 190/90; PULSE 108; PULSE 134; RESP 16; TEMP 36.9; O2SAT 97; O2SAT 98; BMI 36.7
--- NOTE | 2023-10-06 21:38 | ED_ITS ---
HPI - Psych General Chief Complaint: General Medical Stated Complaint: reports feeling off since starting psych med Time Seen by Provider: 10/06/23 21:29 Source: patient and EMS Mode of arrival: EMS Limitations: no limitations History of Present Illness ED Provider: Dr. Delfina Howard HPI Narrative: Patient comes to the emergency room via ambulance. According to the patient, patient states that he does not feel right. Patient denies any pain anywhere, denies SI or HI. Patient has a flat affect, patient unable to explain what he feel how he physically feels. Patient avoiding eye contact, denies SI or HI, denies using drugs for over 2 months. When patient asked if he is taking his psychiatric medications, patient responds ?I do not know?. Patient denies chest pain or shortness of breath, no abdominal pain, denies any recent illnesses. Related Data Home Medications ?Medication ?Instructions ?Recorded ?Confirmed methadone 10 mg/mL oral concentrate 120 mg PO DAILY 07/01/21 07/27/22 benztropine 1 mg tablet 1 mg PO BEDTIME 07/26/22 07/26/22 fluoxetine 20 mg capsule (Prozac) 20 mg PO QAM 07/26/22 07/26/22 olanzapine 10 mg tablet 10 mg PO BEDTIME 07/26/22 07/26/22 risperidone 4 mg tablet (Risperdal) 4 mg PO BEDTIME 07/26/22 07/26/22 Previous Rx's ?Medication ?Instructions ?Recorded nicotine (polacrilex) 2 mg gum 4 mg buccal Q2H PRN nicotine 07/03/21 cravings 30 days #100 ea levofloxacin 750 mg tablet 750 mg PO DAILY #14 tabs 07/29/22 Allergies Allergy/AdvReac Type Severity Reaction Status Date / Time SEAFOOD Allergy Unknown HIVES Uncoded 10/06/23 21:39 Review of Systems 2 Review of Systems: Constitutional : No Weight loss, No Fever, No Chills, No Night Sweats, No Fatigue, No Malaise ENT/Mouth : No Hearing loss, No Ear Pain, No Nasal Congestion, No Sinus Pain, No Hoarseness, No sore throat, No Rhinorrhea, No Swallowing Difficulty Eyes: No Eye Pain, No Swelling, No Redness, No Foreign Body, No Discharge, No Vision Changes Cardiovascular : No Chest Pain, No SOB, No Dyspnea on Exertion, No Orthopnea, No Edema, No Palpitations Respiratory : No Cough, No Sputum, No Wheezing, No Smoke Exposure, No Dyspnea Gastrointestinal : No Nausea, No Vomiting, No Diarrhea, No Constipation, No abdominal Pain, No Hematochezia, No Melena Genitourinary : no irregular bleeding, No Dysuria, No Urinary Frequency, No Hematuria, No Urinary Incontinence, No Urgency, No Flank Pain, No Urinary Flow Changes, No Hesitancy Musculoskeletal : No joint pain, No Myalgias, No Joint Swelling Skin : No Skin Lesions, No rash Neuro : No Weakness, No Numbness, No Paresthesias, No Loss of Consciousness, No Dizziness, No Headache Psych : Denies SI or HI, patient states he feels weird Heme/Lymph: No Bruising, No Bleeding,No Lymphadenopathy Endocrine : No Polyuria, No Polydipsia, No Temperature Intolerance PMFSH Past Medical History Medical History Salmonella enteritis Bacteremia Opioid use disorder, moderate, in early remission, on maintenance therapy Hepatitis Latent tuberculosis Surgical History No pertinent past surgical history Social History Social History Household Members: Significant Other Housing: Apartment Do you presently have visiting nurse or other home services: No Patient Tobacco Use Status: Current everyday Tobacco user Tobacco use type: Cigarette Cigarette Packs Per Day: 1 Cigarettes Per Day: 20.0 e-Cigarette/Vaping Use: Currently Using Second Hand Smoke Exposure: Yes Substance Use Type: Crack/Cocaine, Marijuana and Opiates Advance Directives: No Advance Directives Information Provided: No Do you have a plan to hurt others: No Plan service: No Current occupational status: unemployed Sexual orientation: Straight/Heterosexual Physical Exam 2 Vital Signs: Vital Signs: Last Vital Signs Temp 98.5 F 10/06/23 21:24 Pulse 108 H 10/06/23 21:24 Resp 16 10/06/23 21:24 BP 152/97 H 10/06/23 21:24 Pulse Ox 97 10/06/23 21:24 O2 Del Method Room Air 10/06/23 21:24 BMI result Body Mass Index 36.7 Const: Other: Appearance: Alert. Oriented X3. No acute distress. Eyes: Pupils equal, round and reactive to light. ENT: Pharynx normal. Neck: Normal inspection. Neck supple. No lymph nodes noted. No crepitus CVS: Normal heart rate and rhythm. Pulses normal. Normal S1 and S2 Respiratory: No respiratory distress. Breath sounds normal. No Wheezing. No rales Abdomen: Soft and nontender. No rigidity. No distention. Skin: Skin warm and dry. Normal skin color. Normal skin turgor. Extremities: No lower extremity edema. No Lacerations. No Rash Neuro: Oriented X 3. No motor deficit. No sensory deficit. Moving all extremities. No slurred speech. CN 2 through 12 grossly intact Psych: calm, cooperative, flat affect, avoids eye contact Course Course Course Narrative: -all of patient's labs pending -care team consult pending Medical Decision Making Medical Decision Making [facility] Narrative: -my interpretation of labs: Normal hematology, normal chemistry, ammonia normal, ethanol level negative, troponin negative -urine toxicology pending -care team consult pending -patient denies SI or HI, patient here voluntarily, section 12 not indicated at this time -23:40 care team evaluated the patient. Patient's family at bedside. Per care team, patient is significantly decompensated, the patient's family agrees. Patient is now on a Section 12, patient would benefit from inpatient admission for care and management of medications Differential Diagnosis Differential Diagnoses: The differential diagnosis associated with the presentation includes (Medication side effect, medication noncompliance, schizoaffective disorder) Admission/Observation Consideration of admission/observation: Escalation of care including admission/observation considered (Patient seems decompensated, patient waiting to be seen by the care team.) Consult Healthcare Provider Management of the patient was discussed with: Behavioral Health Provider Lab Data [facility] Lab Attestation statement: I reviewed the patient's lab results. 10/06/23 22:02 10/06/23 22:02 Labs: Lab Results 10/06/23 10/06/23 Range/Units 22:02 22:18 WBC 7.2 (4.8-10.8) X10*3/uL RBC 4.41 L (4.60-5.80) X10*6/uL Hgb 13.8 L (14.0-18.0) g/dl Hct 39.0 L (42.0-52.0) % MCV 88.4 (80.0-98.0) fL MCH 31.3 (27.0-33.0) pg MCHC 35.4 (31.0-36.0) g/dl RDW 12.5 (11.0-16.0) % Plt Count 214 D (160-400) X10*3/uL MPV 9.3 L (9.4-12.4) fL Immature Gran % (Auto) 0.8 H (0.0-0.4) % Neut % (Auto) 66.4 (45-73) % Lymph % (Auto) 23.0 (20-40) % [place] % (Auto) 6.8 (2-11) % Eos % (Auto) 2.4 (0-4) % Baso % (Auto) 0.6 (0-2) % Lymph # (Auto) 1.7 (1.2-4.9) X10*3/uL [place] # (Auto) 0.5 (0.1-1.2) X10*3/uL Eos # (Auto) 0.2 (0.0-0.4) X10*3/uL Baso # (Auto) 0.0 (0.0-0.2) X10*3/uL Abs Immat Gran (auto) 0.06 H (0.00-0.03) X10*3/uL Absolute Neuts (auto) 4.8 (2.0-8.3) x10*3/uL Absolute Nucleated RBC 0.000 (0.0-0.012) X10*3/uL Nucleated RBC % (auto) 0.0 (0.0-0.2) /100WBC Sodium 140 (135-145) mmol/L Potassium 4.0 (3.3-5.1) mmol/L Chloride 103 (96-108) mmol/L Carbon Dioxide 24 (22-29) mmol/L Anion Gap 17 (12-20) BUN 11 (9-16) mg/dL Creatinine 0.89 (0.5-1.4) mg/dL Estim Creat Clear Calc 139.3 Estimated GFR > 60 Random Glucose 129 H (60-115) mg/dL Calcium 10.0 D (8.4-10.2) mg/dL Magnesium 1.9 (1.6-2.6) mg/dL Total Bilirubin 0.5 (0.0-1.0) mg/dL Direct Bilirubin 0.1 (0.0-0.5) mg/dL AST 49 H (5-37) U/L ALT 77 H (0-40) U/L Alkaline Phosphatase 63 (39-117) U/L Ammonia 31 (13-55) umol/L Troponin I High Sens 3.1 (<3.5-35.0) ng/L Total Protein 7.5 (6.5-8.0) g/dL Albumin 4.7 (3.5-5.0) g/dL Urine Color Yellow Urine Appearance Clear Urine pH 6.5 (5.0-9.0) Ur Specific [place] 1.015 (1.005-1.025) Urine Protein Negative (Neg-Trace) mg/dL Urine Glucose (UA) Negative (Negative) mg/dL Urine Ketones Negative (Negative) mg/dL Urine Blood Small (1+) H (Negative) Urine Nitrite Negative (Negative) Ur Leukocyte Esterase Negative (Negative) Urine RBC 6-10 H (0-2) /HPF Urine WBC 0-5 (0-5) /HPF Ur Squamous Epith Cells 0-2 (0-2) /HPF Urine Bacteria None Seen (None Seen) Hyaline Casts 0-2 (0-2) /LPF Urine Opiates Screen Not Detected (Not Detect) Ur Buprenorphine Scrn Not Detected (Not Detect) ng/mL Ur Oxycodone Screen Not Detected (Not Detect) ng/mL Urine Methadone Screen Positive H (Not Detect) ng/mL Urine Fentanyl Screen Not Detected (Not Detect) Ur Barbiturates Screen Not Detected (Not Detect) Ur Phencyclidine Scrn Not Detected (Not Detect) Ur Amphetamines Screen Not Detected (Not Detect) U Benzodiazepines Scrn Not Detected (Not Detect) Urine Cocaine Screen Not Detected (Not Detect) U Marijuana (THC) Screen Not Detected (Not Detect) Ethyl Alcohol < 10 mg/dL Discharge Plan Discharge Clinical Impression: Schizoaffective disorder, depressive type Patient Disposition: Still a Patient Prescriptions: No Action methadone 10 mg/mL Concentrate 120 mg PO DAILY nicotine (polacrilex) 2 mg Gum 4 mg buccal Q2H PRN (Reason: nicotine cravings) 30 Days Qty: 100 0RF risperidone [Risperdal] 4 mg tablet 4 mg PO BEDTIME olanzapine 10 mg tablet 10 mg PO BEDTIME benztropine 1 mg tablet 1 mg PO BEDTIME fluoxetine [Prozac] 20 mg capsule 20 mg PO QAM levofloxacin 750 mg tablet 750 mg PO DAILY Qty: 14 0RF Print Language: Choose Not To Answer
[2023-10-06 22:08] LABS: MANUAL DIFF FLAG NO
[2023-10-06 22:10] LABS: Basophils Percent Auto 0.6 % (0-2); Eosinophils Absolute Auto 0.2 X10*3/uL (0.0-0.4); Eosinophils Percent Auto 2.4 % (0-4); Hemoglobin 13.8 g/dl (14.0-18.0); Imm Gran Abs Auto 0.06 X10*3/uL (0.00-0.03); Imm Gran Pct Auto 0.8 % (0.0-0.4); Lymphocytes Absolute Auto 1.7 X10*3/uL (1.2-4.9); Mean Corpuscular HGB Conc 35.4 g/dl (31.0-36.0); Mean Corpuscular Hemoglobin 31.3 pg (27.0-33.0); Mean Corpuscular Volume 88.4 fL (80.0-98.0); Mean Platelet Volume 9.3 fL (9.4-12.4); Monocytes Absolute Auto 0.5 X10*3/uL (0.1-1.2); Monocytes Percent Auto 6.8 % (2-11); Neutrophils Absolute Auto 4.8 x10*3/uL (2.0-8.3); Neutrophils Percent Auto 66.4 % (45-73); Platelet Count 214 X10*3/uL (160-400); Red Blood Count 4.41 X10*6/uL (4.60-5.80); Red Cell Distribution Width 12.5 % (11.0-16.0); White Blood Count 7.2 X10*3/uL (4.8-10.8)
[2023-10-06 22:25] LABS: Ammonia 31 umol/L (13-55)
[2023-10-06 22:28] LABS: Appearance Urine Clear; Color Urine Yellow; Glucose Urine UA Negative (Negative); Leukocyte Esterase Urine Negative (Negative); Nitrite Urine Negative (Negative); PH 6.5 (5.0-9.0); Specific Gravity - Urine 1.015 (1.005-1.025); UMIC TRIGGER UACC YES; Urine Blood Small (1+) (Negative); Urine Ketones Negative (Negative); Urine Protein Negative (Neg-Trace)
[2023-10-06 22:33] LABS: Bacteria Urine None Seen (None Seen); Hyaline Casts Urine 0-2 /LPF (0-2); Squamous Epithelial Cell Urine 0-2 /HPF (0-2); WBC Urine 0-5 /HPF (0-5)
[2023-10-06 22:41] LABS: Alanine Aminotransferase 77 U/L (0-40); Albumin Level 4.7 g/dL (3.5-5.0); Alkaline Phosphatase 63 U/L (39-117); Anion Gap 17 (12-20); Aspartate Amino Transferase 49 U/L (5-37); Bilirubin Direct 0.1 mg/dL (0.0-0.5); Bilirubin Total 0.5 mg/dL (0.0-1.0); Blood Urea Nitrogen 11 mg/dL (9-16); Carbon Dioxide 24 mmol/L (22-29); Chloride 103 mmol/L (96-108); Creatinine Clr Calc Pharmacy 139.3; Estimated Glomerular Filt Rate > 60; Ethanol < 10 mg/dL; Glucose Random 129 mg/dL (60-115); Magnesium 1.9 mg/dL (1.6-2.6); Sodium 140 mmol/L (135-145); Total Protein 7.5 g/dL (6.5-8.0)
[2023-10-06 22:46] LABS: Troponin-I High Sensitivity 3.1 ng/L (<3.5-35.0)
--- NOTE | 2023-10-06 23:18 | PC.NURSE ---
This RN spoke to pt girlfriend Martina who reports that pt had an issue with his medications and didn't take them for 2 weeks. Per girlfriend pt has been paranoid, secluding himself, carrying a knife. Janet states she does not feel safe.
[2023-10-06 23:36] LABS: Amphetamine Screen Urine Not Detected (Not Detect); Barbiturates, Urine Not Detected (Not Detect); Benzodiazepines Screen Urine Not Detected (Not Detect); Buprenorphine Scr Not Detected (Not Detect); Cannabinoid Screen Urine Not Detected (Not Detect); Cocaine Screen Urine Not Detected (Not Detect); Fentanyl, urine Not Detected (Not Detect); Methadone Screen, Urine Positive (Not Detect); Opiate Screen Urine Not Detected (Not Detect); Oxycodone Screen Urine Not Detected (Not Detect); Phencyclidine Screen Urine Not Detected (Not Detect)
--- NOTE | 2023-10-06 23:58 | MHC.EDTECH ---
This tech took over care of patient at 2300 security called to assist for change management coordinator changed patient into crisis attire,belongings list completed and patient brought to pod.
--- NOTE | 2023-10-07 | PC.NURSE ---
Pt was and family at bedside talking with care team. Decision for pt to stay. Pt was in the bathroom and was smoking a cigarette in the bathroom. Pt flushed it and told that he coiuld not do that, Security called, pt changed over and belongings list completed. Per care team pt is now on a section 12. Pt walked over to the pod and report given to VEDA Harley.
--- NOTE | 2023-10-07 00:14 | MHC.EDTECH ---
Belongings locked in LOCKER 3 in the POD
[2023-10-07] MEDS: Melatonin 3 MG TABLET 9 MG PO (02:07)
[2023-10-07 06:28] VITALS: BP 153/100; PULSE 76; TEMP 36.4; O2SAT 98
--- NOTE | 2023-10-07 06:42 | HE.PHANOTE ---
RE: METHADONE DOSING Last dose of methadone 100 mg was given on 10/01/23 @0600 per Tonya at [facility] [phone]. On 10/01/23 given 6 bottles-6am dose thru and including 10/05
[2023-10-07] MEDS: FLUoxetine HCl 20 MG CAPSULE 40 MG PO (07:54)
[2023-10-07] MEDS: methADONE HCl 20 MG/2 ML ORAL.CONC 100 MG PO (07:55)
--- NOTE | 2023-10-07 08:13 | PC.NURSE ---
patient ambulated w/ steady gait to the bathroom. medicated per the MAR, resting quietly in room w/ even and unlabored respirations.
[2023-10-07] MEDS: HaloperidoL 5 MG TABLET PO (12:51)
[2023-10-07] MEDS: LORazepam 1 MG TABLET PO (12:51)
--- NOTE | 2023-10-07 14:47 | PC.ADMIT ---
Sixto is a 38-year-old Swedish-speaking male admitted from [facility] to M3 on a CV for treatment of unspecified psychosis. Tox screen positive for methadone. Per crisis eval, pt presented to ED due to visual hallucinations and worsening command auditory hallucinations telling him to hurt his girlfriend. Pt has been noncompliant with medications for 2-3 weeks and has not been at his baseline level of functioning. Pt was previously hospitalized on M5 in June 2021 for similar presentation. Upon arrival to the unit, pt appeared, tense, confused and disorganized. Pt was making bizarre gestures and noises and blinking his eyes frequently. Pt was not responding to verbal cues. Pt was resistive to care and refused vitals and skin check. Security was called. Pt eventually changed over his clothes and skin check was complete, pt noted to have dry cracked feet. Pt was given Ativan 1mg PO and Haldol 5mg PO at 1251. Pt placed on 1:1 for safety. Pt immediately fell asleep. Upon waking up pt was alert, oriented, pleasant and cooperative.
[2023-10-07 15:05] VITALS: BP 146/71; PULSE 100; RESP 16; TEMP 36.4; O2SAT 95
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
[2023-10-07 19:56] VITALS: BP 136/86; PULSE 84; RESP 16; TEMP 36.5; O2SAT 94
[2023-10-07 20:14] VITALS: BP 136/86
[2023-10-07] MEDS: Prazosin HCL 1 MG CAPSULE PO (20:14)
[2023-10-07] MEDS: risperiDONE 2 MG TABLET 4 MG PO (20:15)
[2023-10-07] MEDS: Benztropine Mesylate 1 MG TABLET PO (20:15)
[2023-10-08 07:00] VITALS: BMI 36.7
[2023-10-08 09:08] VITALS: BP 132/82; PULSE 112; RESP 18; TEMP 37.1; O2SAT 95
[2023-10-08 09:08] LABS: Alanine Aminotransferase 71 U/L (0-40); Albumin Level 4.4 g/dL (3.5-5.0); Alkaline Phosphatase 61 U/L (39-117); Anion Gap 15 (12-20); Aspartate Amino Transferase 43 U/L (5-37); Bilirubin Total 0.8 mg/dL (0.0-1.0); Blood Urea Nitrogen 14 mg/dL (9-16); Calcium 9.5 mg/dL (8.4-10.2); Carbon Dioxide 26 mmol/L (22-29); Chloride 103 mmol/L (96-108); Cholesterol 272 mg/dL (<200); Creatinine Clr Calc Pharmacy 134.7; Estimated Glomerular Filt Rate > 60; Glucose Fasting 88 mg/dL (60-99); HDL Cholesterol 40 mg/dL (>40); LDL Cholesterol Calculated 199 mg/dL (<100); Potassium 3.8 mmol/L (3.3-5.1); Sodium 140 mmol/L (135-145); Total Protein 7.4 g/dL (6.5-8.0); Triglycerides 169 mg/dL (<150)
[2023-10-08] MEDS: FLUoxetine HCl 20 MG CAPSULE 40 MG PO (09:09)
[2023-10-08] MEDS: Nicotine 21 MG PATCH.TD24 TRANSDERMA (09:10)
[2023-10-08] MEDS: methADONE HCl 20 MG/2 ML ORAL.CONC 100 MG PO (09:10)
--- NOTE | 2023-10-08 10:18 | HO.PSYCHPN ---
Subjective Subjective Date of Service: 10/08/23 Reason For Visit: crisis Subjective Notes: Conditional Voluntary Interim History: Reviewed with Dr. Burrell. office machines sales representative present. Pt reports feeling better today; pt stated, I'm feeling tired from the medications. I'm no longer having voices or seeing anything. They stopped yesterday . Pt reports he is sleeping and eating well. Pt denies SI/HI/VH/AH. Pt reports he is open to the idea of receiving PALACIOS. Medication Compliance: Yes Side effects from medications: No Attending Groups: No Review of Systems Constitutional: Reports as per HPI Eyes: Reports as per HPI Reports as per HPI Cardiovascular: Reports as per HPI Respiratory: Reports as per HPI Gastrointestinal: Reports as per HPI Genitourinary: Reports as per HPI Musculoskeletal: Reports as per HPI Skin/Breast: Reports as per HPI Reports as per HPI Psychiatric: Reports as per HPI Endocrine: Reports as per HPI Hematologic/Lymphatic: Reports as per HPI Allergic/Immunologic: Reports as per HPI Mental Status Exam Mental Status Exam Narrative: Pt is alert and oriented; behavior is cooperative and calm; dressed in hospital attire; mood is described as okay ; eye contact appropriate; Speech is normal rate, volume and not pressured; thought process is organized and goal directed; Thought content is on tx; otherwise pertinent to relevant topics and without any delusional content, paranoid ideations or grandiosity; denies SI/HI/VH/AH. Diagnostics Vital Signs (24Hr): Vital Signs - 24 hr 10/07/23 15:05 10/07/23 19:56 10/07/23 20:14 Temperature 97.5 F 97.7 F Pulse Rate 100 84 Respiratory Rate 16 16 Blood Pressure 146/71 H 136/86 136/86 Pulse Oximetry 95 94 Oxygen Delivery Method Room Air Room Air 10/08/23 09:08 Temperature 98.8 F Pulse Rate 112 H Respiratory Rate 18 Blood Pressure 132/82 Pulse Oximetry 95 Oxygen Delivery Method Room Air BMI result Body Mass Index 36.7 Labs 10/06/23 22:02 10/08/23 08:30 Labs: Laboratory Results - last 48 hr 10/06/23 10/06/23 10/08/23 22:02 22:18 08:30 WBC 7.2 RBC 4.41 L Hgb 13.8 L Hct 39.0 L MCV 88.4 MCH 31.3 MCHC 35.4 RDW 12.5 Plt Count 214 D MPV 9.3 L Immature Gran % (Auto) 0.8 H Neut % (Auto) 66.4 Lymph % (Auto) 23.0 [place] % (Auto) 6.8 Eos % (Auto) 2.4 Baso % (Auto) 0.6 Lymph # (Auto) 1.7 [place] # (Auto) 0.5 Eos # (Auto) 0.2 Baso # (Auto) 0.0 Abs Immat Gran (auto) 0.06 H Absolute Neuts (auto) 4.8 Absolute Nucleated RBC 0.000 Nucleated RBC % (auto) 0.0 Sodium 140 140 Potassium 4.0 3.8 Chloride 103 103 Carbon Dioxide 24 26 Anion Gap 17 15 BUN 11 14 Creatinine 0.89 0.92 Estim Creat Clear Calc 139.3 134.7 Estimated GFR > 60 > 60 Random Glucose 129 H Fasting Glucose 88 Calcium 10.0 D 9.5 Magnesium 1.9 Total Bilirubin 0.5 0.8 Direct Bilirubin 0.1 AST 49 H 43 H ALT 77 H 71 H Alkaline Phosphatase 63 61 Ammonia 31 Troponin I High Sens 3.1 Total Protein 7.5 7.4 Albumin 4.7 4.4 Triglycerides 169 H Cholesterol 272 H LDL Cholesterol, Calc 199 H HDL Cholesterol 40 L Urine Color Yellow Urine Appearance Clear Urine pH 6.5 Ur Specific [place] 1.015 Urine Protein Negative Urine Glucose (UA) Negative Urine Ketones Negative Urine Blood Small (1+) H Urine Nitrite Negative Ur Leukocyte Esterase Negative Urine RBC 6-10 H Urine WBC 0-5 Ur Squamous Epith Cells 0-2 Urine Bacteria None Seen Hyaline Casts 0-2 Urine Opiates Screen Not Detected Ur Buprenorphine Scrn Not Detected Ur Oxycodone Screen Not Detected Urine Methadone Screen Positive H Urine Fentanyl Screen Not Detected Ur Barbiturates Screen Not Detected Ur Phencyclidine Scrn Not Detected Ur Amphetamines Screen Not Detected U Benzodiazepines Scrn Not Detected Urine Cocaine Screen Not Detected U Marijuana (THC) Screen Not Detected Ethyl Alcohol < 10 Medications Medications Current Medications Acetaminophen (Acetaminophen 325 Mg Tablet) 650 mg PO Q6H PRN PRN Reason: Headache/Pain Mild Scale (1-3) Al Hydroxide/Mg Hydroxide (Magnesium Hydrox/Alum Hydrox 30 Ml Oral.Susp) 30 ml PO Q6H PRN PRN Reason: Heartburn/Nausea Benztropine Mesylate (Benztropine Mesylate 1 Mg Tablet) 1 mg PO BEDTIME [facility] Last Admin: 10/07/23 20:15 Dose: 1 mg Fluoxetine HCl (Fluoxetine Hcl 20 Mg Capsule) 40 mg PO DAILY@0900 [facility] Last Admin: 10/08/23 09:09 Dose: 40 mg Haloperidol (Haloperidol 5 Mg Tablet) 5 mg PO BID PRN PRN Reason: psychosis/agitation Hydroxyzine HCl (Hydroxyzine Hcl 25 Mg Tablet) 25 mg PO Q6H PRN PRN Reason: Anxiety Magnesium Hydroxide (Milk Of Magnesia 30 Ml Oral.Susp) 30 ml PO DAILY PRN PRN Reason: Constipation Methadone HCl (Methadone Hcl 20 Mg/2 Ml Oral.Conc) 100 mg PO DAILY [facility] Last Admin: 10/08/23 09:10 Dose: 100 mg Nicotine (Nicotine 21 Mg Patch.Td24) 21 mg TRANSDERMA DAILY [facility] Last Admin: 10/08/23 09:10 Dose: 21 mg Nicotine Polacrilex (Nicotine Polacrilex 2 Mg Gum) 4 mg BUCCAL Q2H PRN PRN Reason: nicotine cravings Prazosin HCl (Prazosin Hcl 1 Mg Capsule) 1 mg PO BEDTIME [facility]; Protocol Last Admin: 10/07/23 20:14 Dose: 1 mg Risperidone (Risperidone 2 Mg Tablet) 4 mg PO BEDTIME [facility] Last Admin: 10/07/23 20:15 Dose: 4 mg Trazodone HCl (Trazodone Hcl 50 Mg Tablet) 50 mg PO BEDTIME MRX1 PRN PRN Reason: Insomnia Allergies Allergies Allergy/AdvReac Type Severity Reaction Status Date / Time SEAFOOD Allergy Unknown HIVES Uncoded 10/06/23 21:39 Assessment & Plan Assessment & Plan (1) Schizoaffective disorder, depressive type: Status: Acute Code(s): F25.1 - Schizoaffective disorder, depressive type (2) Post traumatic stress disorder (PTSD): Status: Acute Code(s): F43.10 - Post-traumatic stress disorder, unspecified (3) Cocaine use disorder: Status: Acute Code(s): F14.10 - Cocaine abuse, uncomplicated (4) Opioid use disorder: Status: Acute Code(s): F11.90 - Opioid use, unspecified, uncomplicated Plan Patient is a 38 year old male with hx of Schizoaffective d/o, PTSD, opioid use d/o, cocaine use d/o who presented to ER d/t auditory and visual hallucinations secondary to medication non-compliance. Plan: CV 15 minute safety checks continue home medications encourage groups consider PAL[facility] discharge planning 10/07: office machines sales representative present. Pt reports feeling better today; pt stated, I'm feeling tired from the medications. I'm no longer having voices or seeing anything. They stopped yesterday . Pt reports he is sleeping and eating well. Pt denies SI/HI/VH/AH. Pt reports he is open to the idea of receiving PALACIOS. Will continue to discuss with pt. Patient educated on: diagnosis, medication risk/benefits and therapeutic strategies Informed Consent: understands Reason for continued inpatient stay Substantial Risk for: med/psych decompensation Time Spent With Patient Time: Total time managing care of this patient today _20___ minutes.
[2023-10-08 22:15] VITALS: BP 143/97; PULSE 98; RESP 18; TEMP 37.1; O2SAT 96
[2023-10-08] MEDS: Benztropine Mesylate 1 MG TABLET PO (22:15)
[2023-10-08] MEDS: HaloperidoL 5 MG TABLET PO (22:15)
[2023-10-08] MEDS: risperiDONE 2 MG TABLET 4 MG PO (22:15)
[2023-10-08] MEDS: Prazosin HCL 1 MG CAPSULE PO (22:15)
[2023-10-09] MEDS: traZODone HCL 50 MG TABLET PO ×3 (01:43→23:46)
[2023-10-09] MEDS: hydrOXYzine HCL 25 MG TABLET PO ×2 (01:43→21:48)
[2023-10-09 07:25] VITALS: BP 145/77; PULSE 91; RESP 16; TEMP 36.6; O2SAT 96
--- NOTE | 2023-10-09 08:49 | P.PNPSI_ITS ---
Subjective Subjective Date of Service: 10/09/23 Reason For Visit: crisis Subjective Notes: Conditional Voluntary Interim History: Reviewed with Dr. Burrell. staff interpreter present. Pt reports feeling better today; pt stated, I'm doing after taking the medication. I no longer having those thoughts . Pt denies SI/HI/VH/AH. Plan for patient to receive Invega Sustenna on Thursday; pt aware. Medication Compliance: Yes Side effects from medications: No Attending Groups: No Review of Systems Constitutional: Reports as per HPI Eyes: Reports as per HPI Reports as per HPI Cardiovascular: Reports as per HPI Respiratory: Reports as per HPI Gastrointestinal: Reports as per HPI Genitourinary: Reports as per HPI Musculoskeletal: Reports as per HPI Skin/Breast: Reports as per HPI Reports as per HPI Psychiatric: Reports as per HPI Endocrine: Reports as per HPI Hematologic/Lymphatic: Reports as per HPI Allergic/Immunologic: Reports as per HPI Mental Status Exam Mental Status Exam Narrative: Pt is alert and oriented; behavior is cooperative and calm; dressed in hospital attire; mood is described as good ; eye contact appropriate; Speech is normal rate, volume and not pressured; thought process is organized and goal directed; Thought content is on tx; otherwise pertinent to relevant topics and without any delusional content, paranoid ideations or grandiosity; denies SI/HI/VH/AH. Diagnostics Vital Signs (24Hr): Vital Signs - 24 hr 10/08/23 09:08 10/08/23 22:15 10/09/23 07:25 Temperature 98.8 F 98.8 F 97.8 F Pulse Rate 112 H 98 91 Respiratory Rate 18 18 16 Blood Pressure 132/82 143/97 H 145/77 H Pulse Oximetry 95 96 96 Oxygen Delivery Method Room Air Room Air Room Air BMI result Body Mass Index 36.7 Labs 10/09/23 13:40 10/09/23 13:40 Labs: Laboratory Results - last 48 hr 10/08/23 08:30 Sodium 140 Potassium 3.8 Chloride 103 Carbon Dioxide 26 Anion Gap 15 BUN 14 Creatinine 0.92 Estim Creat Clear Calc 134.7 Estimated GFR > 60 Fasting Glucose 88 Calcium 9.5 Total Bilirubin 0.8 AST 43 H ALT 71 H Alkaline Phosphatase 61 Total Protein 7.4 Albumin 4.4 Triglycerides 169 H Cholesterol 272 H LDL Cholesterol, Calc 199 H HDL Cholesterol 40 L Medications Medications Current Medications Acetaminophen (Acetaminophen 325 Mg Tablet) 650 mg PO Q6H PRN PRN Reason: Headache/Pain Mild Scale (1-3) Al Hydroxide/Mg Hydroxide (Magnesium Hydrox/Alum Hydrox 30 Ml Oral.Susp) 30 ml PO Q6H PRN PRN Reason: Heartburn/Nausea Benztropine Mesylate (Benztropine Mesylate 1 Mg Tablet) 1 mg PO BEDTIME [facility] Last Admin: 10/08/23 22:15 Dose: 1 mg Fluoxetine HCl (Fluoxetine Hcl 20 Mg Capsule) 40 mg PO DAILY@0900 [facility] Last Admin: 10/08/23 09:09 Dose: 40 mg Haloperidol (Haloperidol 5 Mg Tablet) 5 mg PO BID PRN PRN Reason: psychosis/agitation Last Admin: 10/08/23 22:15 Dose: 5 mg Hydroxyzine HCl (Hydroxyzine Hcl 25 Mg Tablet) 25 mg PO Q6H PRN PRN Reason: Anxiety Last Admin: 10/09/23 01:43 Dose: 25 mg Magnesium Hydroxide (Milk Of Magnesia 30 Ml Oral.Susp) 30 ml PO DAILY PRN PRN Reason: Constipation Methadone HCl (Methadone Hcl 20 Mg/2 Ml Oral.Conc) 100 mg PO DAILY [facility] Last Admin: 10/08/23 09:10 Dose: 100 mg Nicotine (Nicotine 21 Mg Patch.Td24) 21 mg TRANSDERMA DAILY [facility] Last Admin: 10/08/23 09:10 Dose: 21 mg Nicotine Polacrilex (Nicotine Polacrilex 2 Mg Gum) 4 mg BUCCAL Q2H PRN PRN Reason: nicotine cravings Prazosin HCl (Prazosin Hcl 1 Mg Capsule) 1 mg PO BEDTIME [facility]; Protocol Last Admin: 10/08/23 22:15 Dose: 1 mg Risperidone (Risperidone 2 Mg Tablet) 4 mg PO BEDTIME [facility] Last Admin: 10/08/23 22:15 Dose: 4 mg Trazodone HCl (Trazodone Hcl 50 Mg Tablet) 50 mg PO BEDTIME MRX1 PRN PRN Reason: Insomnia Last Admin: 10/09/23 01:43 Dose: 50 mg Allergies Allergies Allergy/AdvReac Type Severity Reaction Status Date / Time SEAFOOD Allergy Unknown HIVES Uncoded 10/06/23 21:39 Assessment & Plan Assessment & Plan (1) Schizoaffective disorder, depressive type: Status: Acute Code(s): F25.1 - Schizoaffective disorder, depressive type (2) Post traumatic stress disorder (PTSD): Status: Acute Code(s): F43.10 - Post-traumatic stress disorder, unspecified (3) Cocaine use disorder: Status: Acute Code(s): F14.10 - Cocaine abuse, uncomplicated (4) Opioid use disorder: Status: Acute Code(s): F11.90 - Opioid use, unspecified, uncomplicated Plan Patient is a 38 year old male with hx of Schizoaffective d/o, PTSD, opioid use d/o, cocaine use d/o who presented to ER d/t auditory and visual hallucinations secondary to medication non-compliance. Plan: CV 15 minute safety checks continue home medications encourage groups consider [facility] discharge planning 10/07: staff interpreter present. Pt reports feeling better today; pt stated, I'm feeling tired from the medications. I'm no longer having voices or seeing anything. They stopped yesterday . Pt reports he is sleeping and eating well. Pt denies SI/HI/VH/AH. Pt reports he is open to the idea of receiving PALACIOS. Will continue to discuss with pt. 10/08: Plan for patient to receive Invega Sustenna on Thursday; pt aware. Patient educated on: diagnosis and medication risk/benefits Informed Consent: understands Reason for continued inpatient stay Substantial Risk for: med/psych decompensation Time Spent With Patient Time: Total time managing care of this patient today _20___ minutes.
[2023-10-09] MEDS: methADONE HCl 20 MG/2 ML ORAL.CONC 100 MG PO (09:12)
[2023-10-09] MEDS: FLUoxetine HCl 20 MG CAPSULE 40 MG PO (09:13)
[2023-10-09] MEDS: Nicotine 21 MG PATCH.TD24 TRANSDERMA (09:13)
[2023-10-09] MEDS: diphenhydrAMINE HCL 25 MG CAPSULE 50 MG PO (13:33)
[2023-10-09] MEDS: Fluticasone Propionate Nasal 16 GM SPRAY 1 SPRAY NOSTRIL-B (13:36)
[2023-10-09 13:53] LABS: Basophils Absolute Auto 0.1 X10*3/uL (0.0-0.2); Basophils Percent Auto 0.7 % (0-2); Eosinophils Absolute Auto 0.3 X10*3/uL (0.0-0.4); Eosinophils Percent Auto 3.9 % (0-4); Hematocrit 40.7 % (42.0-52.0); Imm Gran Abs Auto 0.03 X10*3/uL (0.00-0.03); Imm Gran Pct Auto 0.4 % (0.0-0.4); Lymphocytes Absolute Auto 3.7 X10*3/uL (1.2-4.9); Lymphocytes Percent Auto 52.9 % (20-40); MANUAL DIFF FLAG NO; Mean Corpuscular HGB Conc 34.4 g/dl (31.0-36.0); Mean Corpuscular Hemoglobin 31.5 pg (27.0-33.0); Mean Corpuscular Volume 91.7 fL (80.0-98.0); Mean Platelet Volume 9.7 fL (9.4-12.4); Monocytes Absolute Auto 0.7 X10*3/uL (0.1-1.2); Monocytes Percent Auto 10.3 % (2-11); Neutrophils Absolute Auto 2.2 x10*3/uL (2.0-8.3); Neutrophils Percent Auto 31.8 % (45-73); Platelet Count 196 X10*3/uL (160-400); Red Blood Count 4.44 X10*6/uL (4.60-5.80); Red Cell Distribution Width 12.6 % (11.0-16.0); White Blood Count 6.9 X10*3/uL (4.8-10.8)
[2023-10-09 14:08] LABS: Alanine Aminotransferase 66 U/L (0-40); Albumin Level 4.4 g/dL (3.5-5.0); Alkaline Phosphatase 63 U/L (39-117); Anion Gap 14 (12-20); Aspartate Amino Transferase 38 U/L (5-37); Bilirubin Direct 0.1 mg/dL (0.0-0.5); Bilirubin Total 0.3 mg/dL (0.0-1.0); Blood Urea Nitrogen 13 mg/dL (9-16); Calcium 9.6 mg/dL (8.4-10.2); Carbon Dioxide 22 mmol/L (22-29); Chloride 106 mmol/L (96-108); Creatinine Clr Calc Pharmacy 125.2; Estimated Glomerular Filt Rate > 60; Glucose Random 135 mg/dL (60-115); Potassium 3.6 mmol/L (3.3-5.1); Sodium 138 mmol/L (135-145); Total Protein 7.5 g/dL (6.5-8.0)
[2023-10-09 14:28] LABS: Ammonia 39 umol/L (13-55)
[2023-10-09] MEDS: risperiDONE 2 MG TABLET 4 MG PO (21:48)
[2023-10-09] MEDS: Benztropine Mesylate 1 MG TABLET PO (21:48)
[2023-10-09] MEDS: Prazosin HCL 1 MG CAPSULE PO (21:48)
[2023-10-09 21:50] VITALS: BP 156/96; PULSE 110; RESP 16; TEMP 36.4; O2SAT 96
[2023-10-10 07:45] VITALS: BP 153/83; PULSE 74; RESP 16; TEMP 36.6; O2SAT 100
--- NOTE | 2023-10-10 09:50 | PC.NURSE ---
AM Medications not given- pt asleep, tried to awaken multiple times but pt snoring, sleeping comfortably, respirations are even and unlabored.
--- NOTE | 2023-10-10 10:27 | P.PNPSI_ITS ---
Subjective Subjective Date of Service: 10/10/23 Reason For Visit: crisis Subjective Notes: Conditional Voluntary Interim History: Patient was discussed in rounds today. Records and plans were reviewed. I tried to wake him up on 3 or 4 occasions but he refused to interact. Review of Systems Review of Systems Yes Unobtainable due to mental status Mental Status Exam Mental Status Exam Narrative: Could not be conducted Diagnostics Vital Signs (24Hr): Vital Signs - 24 hr 10/09/23 21:50 10/10/23 07:45 Temperature 97.6 F 97.9 F Pulse Rate 110 H 74 Respiratory Rate 16 16 Blood Pressure 156/96 H 153/83 H Pulse Oximetry 96 100 Oxygen Delivery Method Room Air Room Air BMI result Body Mass Index 36.7 Labs 10/09/23 13:40 10/09/23 13:40 Labs: Laboratory Results - last 48 hr 10/09/23 13:40 WBC 6.9 RBC 4.44 L Hgb 14.0 Hct 40.7 L MCV 91.7 MCH 31.5 MCHC 34.4 RDW 12.6 Plt Count 196 MPV 9.7 Immature Gran % (Auto) 0.4 Neut % (Auto) 31.8 L Lymph % (Auto) 52.[address] [place] % (Auto) 10.3 Eos % (Auto) 3.9 Baso % (Auto) 0.7 Lymph # (Auto) 3.7 [place] # (Auto) 0.7 Eos # (Auto) 0.3 Baso # (Auto) 0.1 Abs Immat Gran (auto) 0.03 Absolute Neuts (auto) 2.2 Absolute Nucleated RBC 0.000 Nucleated RBC % (auto) 0.0 Sodium 138 Potassium 3.6 Chloride 106 Carbon Dioxide 22 Anion Gap 14 BUN 13 Creatinine 0.99 Estim Creat Clear Calc 125.2 Estimated GFR > 60 Random Glucose 135 H Calcium 9.6 Total Bilirubin 0.3 Direct Bilirubin 0.1 AST 38 H ALT 66 H Alkaline Phosphatase 63 Ammonia 39 Total Protein 7.5 Albumin 4.4 Medications Medications Current Medications Acetaminophen (Acetaminophen 325 Mg Tablet) 650 mg PO Q6H PRN PRN Reason: Headache/Pain Mild Scale (1-3) Al Hydroxide/Mg Hydroxide (Magnesium Hydrox/Alum Hydrox 30 Ml Oral.Susp) 30 ml PO Q6H PRN PRN Reason: Heartburn/Nausea Benztropine Mesylate (Benztropine Mesylate 1 Mg Tablet) 1 mg PO BEDTIME [facility] Last Admin: 10/09/23 21:48 Dose: 1 mg Fluoxetine HCl (Fluoxetine Hcl 20 Mg Capsule) 40 mg PO DAILY@0900 [facility] Last Admin: 10/09/23 09:13 Dose: 40 mg Fluticasone Propionate (Fluticasone Propionate Nasal 16 Gm [place]) 1 spray NOSTRIL-B DAILY [facility] Last Admin: 10/09/23 13:36 Dose: 1 spray Haloperidol (Haloperidol 5 Mg Tablet) 5 mg PO BID PRN PRN Reason: psychosis/agitation Last Admin: 10/08/23 22:15 Dose: 5 mg Hydroxyzine HCl (Hydroxyzine Hcl 25 Mg Tablet) 25 mg PO Q6H PRN PRN Reason: Anxiety Last Admin: 10/09/23 21:48 Dose: 25 mg Magnesium Hydroxide (Milk Of Magnesia 30 Ml Oral.Susp) 30 ml PO DAILY PRN PRN Reason: Constipation Methadone HCl (Methadone Hcl 20 Mg/2 Ml Oral.Conc) 100 mg PO DAILY [facility] Last Admin: 10/10/23 09:48 Dose: Not Given Nicotine (Nicotine 21 Mg Patch.Td24) 21 mg TRANSDERMA DAILY [facility] Last Admin: 10/09/23 09:13 Dose: 21 mg Nicotine Polacrilex (Nicotine Polacrilex 2 Mg Gum) 4 mg BUCCAL Q2H PRN PRN Reason: nicotine cravings Prazosin HCl (Prazosin Hcl 1 Mg Capsule) 1 mg PO BEDTIME [facility]; Protocol Last Admin: 10/09/23 21:48 Dose: 1 mg Risperidone (Risperidone 2 Mg Tablet) 4 mg PO BEDTIME [facility] Last Admin: 10/09/23 21:48 Dose: 4 mg Trazodone HCl (Trazodone Hcl 50 Mg Tablet) 50 mg PO BEDTIME MRX1 PRN PRN Reason: Insomnia Last Admin: 10/09/23 23:46 Dose: 50 mg Allergies Allergies Allergy/AdvReac Type Severity Reaction Status Date / Time SEAFOOD Allergy Unknown HIVES Uncoded 10/06/23 21:39 Assessment & Plan Assessment & Plan (1) Schizoaffective disorder, depressive type: Status: Acute Code(s): F25.1 - Schizoaffective disorder, depressive type (2) Post traumatic stress disorder (PTSD): Status: Acute Code(s): F43.10 - Post-traumatic stress disorder, unspecified (3) Cocaine use disorder: Status: Acute Code(s): F14.10 - Cocaine abuse, uncomplicated (4) Opioid use disorder: Status: Acute Code(s): F11.90 - Opioid use, unspecified, uncomplicated Plan Patient is a 38 year old male with hx of Schizoaffective d/o, PTSD, opioid use d/o, cocaine use d/o who presented to ER d/t auditory and visual hallucinations secondary to medication non-compliance. Plan: CV 15 minute safety checks continue home medications encourage groups consider PAL[facility] discharge planning 10/07: services engineer present. Pt reports feeling better today; pt stated, I'm feeling tired from the medications. I'm no longer having voices or seeing anything. They stopped yesterday . Pt reports he is sleeping and eating well. Pt denies SI/HI/VH/AH. Pt reports he is open to the idea of receiving PALACIOS. Will continue to discuss with pt. 10/08: Plan for patient to receive Invega Sustenna on Thursday; pt aware. 10/09: Continue current regimen and plans Reason for continued inpatient stay Substantial Risk for: rapid decompensation Time Spent With Patient Time: Total time managing care of this patient today ____ minutes.
--- NOTE | 2023-10-10 15:25 | PC.NURSE ---
Attempted to meet with pt again at 1520 , pt still asleep, heard snoring. AM medications discussed with Dr. Evans. No meds administered d/t pt sleeping, Dr. Nathan MD is aware.
[2023-10-10] MEDS: methADONE HCl 20 MG/2 ML ORAL.CONC 50 MG PO (18:20)
--- NOTE | 2023-10-10 18:22 | PC.NURSE ---
Pt woke up at approximately 1800 and agreed to meet with this flex o writer operator and preceptor nurse. Pt denied all symptoms, reported feeling safe on unit. Denied SI/HI. Denied AH/VH, no overt psychosis or expressed delusions. Patient reports feeling tired although unable to identify anything different than previous days. After discussing pt's meds with Dr. Evans, pt was given half his dose of methadone (50mL) while his antidepressant was held due to doctor's concerns it might make the pt stay up at night.
[2023-10-10] MEDS: Nicotine Polacrilex 2 MG GUM 4 MG BUCCAL (20:50)
[2023-10-10 22:00] VITALS: BP 162/89; PULSE 109; RESP 16; TEMP 36.7; O2SAT 95
[2023-10-10] MEDS: Benztropine Mesylate 1 MG TABLET PO (22:49)
[2023-10-10 22:50] VITALS: BP 162/89
[2023-10-10] MEDS: traZODone HCL 50 MG TABLET PO (22:50)
[2023-10-10] MEDS: Prazosin HCL 1 MG CAPSULE PO (22:50)
[2023-10-10] MEDS: risperiDONE 2 MG TABLET 4 MG PO (22:50)
[2023-10-11 08:00] VITALS: BP 110/89; PULSE 67; RESP 20; TEMP 36.9; O2SAT 96
[2023-10-11] MEDS: Fluticasone Propionate Nasal 16 GM SPRAY 1 SPRAY NOSTRIL-B (08:32)
[2023-10-11] MEDS: Nicotine 21 MG PATCH.TD24 TRANSDERMA (08:33)
[2023-10-11] MEDS: FLUoxetine HCl 20 MG CAPSULE 40 MG PO (08:35)
[2023-10-11] MEDS: methADONE HCl 20 MG/2 ML ORAL.CONC 100 MG PO (08:37)
--- NOTE | 2023-10-11 10:15 | HO.PSYCHPN ---
Subjective Subjective Date of Service: 10/11/23 Reason For Visit: crisis Subjective Notes: Conditional Voluntary Interim History: Patient was discussed in rounds today. Records and plans were reviewed. He is doing better. Not having any withdrawal symptoms. He slept most of the day yesterday and in the evening I only gave him half of his methadone dose. No complaints or side effects. No changes were made today. No SI. Medication Compliance: Yes Side effects from medications: No Review of Systems Review of Systems Yes all other systems are reviewed and are negative Mental Status Exam Mental Status Exam Narrative: In today's visit he is alert, pleasant and interactive. Soft-spoken speech. Moderate eye contact. Affect is constricted. No acute signs of psychosis. Cognitively is intact to observation. No SI. No AVH. Judgment is intact Diagnostics Vital Signs (24Hr): Vital Signs - 24 hr 10/10/23 22:00 10/10/23 22:50 10/11/23 08:00 Temperature 98.1 F 98.4 F Pulse Rate 109 H 67 Respiratory Rate 16 20 Blood Pressure 162/89 H 162/89 H 110/89 Pulse Oximetry 95 96 Oxygen Delivery Method Room Air Room Air BMI result Body Mass Index 36.7 Labs 10/09/23 13:40 10/09/23 13:40 Labs: Laboratory Results - last 48 hr 10/09/23 13:40 WBC 6.9 RBC 4.44 L Hgb 14.0 Hct 40.7 L MCV 91.7 MCH 31.5 MCHC 34.4 RDW 12.6 Plt Count 196 MPV 9.7 Immature Gran % (Auto) 0.4 Neut % (Auto) 31.8 L Lymph % (Auto) 52.9 H [place] % (Auto) 10.3 Eos % (Auto) 3.9 Baso % (Auto) 0.7 Lymph # (Auto) 3.7 [place] # (Auto) 0.7 Eos # (Auto) 0.3 Baso # (Auto) 0.1 Abs Immat Gran (auto) 0.03 Absolute Neuts (auto) 2.2 Absolute Nucleated RBC 0.000 Nucleated RBC % (auto) 0.0 Sodium 138 Potassium 3.6 Chloride 106 Carbon Dioxide 22 Anion Gap 14 BUN 13 Creatinine 0.99 Estim Creat Clear Calc 125.2 Estimated GFR > 60 Random Glucose 135 H Calcium 9.6 Total Bilirubin 0.3 Direct Bilirubin 0.1 AST 38 H ALT 66 H Alkaline Phosphatase 63 Ammonia 39 Total Protein 7.5 Albumin 4.4 Medications Medications Current Medications Acetaminophen (Acetaminophen 325 Mg Tablet) 650 mg PO Q6H PRN PRN Reason: Headache/Pain Mild Scale (1-3) Al Hydroxide/Mg Hydroxide (Magnesium Hydrox/Alum Hydrox 30 Ml Oral.Susp) 30 ml PO Q6H PRN PRN Reason: Heartburn/Nausea Benztropine Mesylate (Benztropine Mesylate 1 Mg Tablet) 1 mg PO BEDTIME [facility] Last Admin: 10/10/23 22:49 Dose: 1 mg Fluoxetine HCl (Fluoxetine Hcl 20 Mg Capsule) 40 mg PO DAILY@0900 [facility] Last Admin: 10/11/23 08:35 Dose: 40 mg Fluticasone Propionate (Fluticasone Propionate Nasal 16 Gm [place]) 1 spray NOSTRIL-B DAILY [facility] Last Admin: 10/11/23 08:32 Dose: 1 spray Haloperidol (Haloperidol 5 Mg Tablet) 5 mg PO BID PRN PRN Reason: psychosis/agitation Last Admin: 10/08/23 22:15 Dose: 5 mg Hydroxyzine HCl (Hydroxyzine Hcl 25 Mg Tablet) 25 mg PO Q6H PRN PRN Reason: Anxiety Last Admin: 10/09/23 21:48 Dose: 25 mg Magnesium Hydroxide (Milk Of Magnesia 30 Ml Oral.Susp) 30 ml PO DAILY PRN PRN Reason: Constipation Methadone HCl (Methadone Hcl 20 Mg/2 Ml Oral.Conc) 100 mg PO DAILY [facility] Last Admin: 10/11/23 08:37 Dose: 100 mg Nicotine (Nicotine 21 Mg Patch.Td24) 21 mg TRANSDERMA DAILY [facility] Last Admin: 10/11/23 08:33 Dose: 21 mg Nicotine Polacrilex (Nicotine Polacrilex 2 Mg Gum) 4 mg BUCCAL Q2H PRN PRN Reason: nicotine cravings Last Admin: 10/10/23 20:50 Dose: 4 mg Prazosin HCl (Prazosin Hcl 1 Mg Capsule) 1 mg PO BEDTIME [facility]; Protocol Last Admin: 10/10/23 22:50 Dose: 1 mg Risperidone (Risperidone 2 Mg Tablet) 4 mg PO BEDTIME [facility] Last Admin: 10/10/23 22:50 Dose: 4 mg Trazodone HCl (Trazodone Hcl 50 Mg Tablet) 50 mg PO BEDTIME MRX1 PRN PRN Reason: Insomnia Last Admin: 10/10/23 22:50 Dose: 50 mg Allergies Allergies Allergy/AdvReac Type Severity Reaction Status Date / Time SEAFOOD Allergy Unknown HIVES Uncoded 10/06/23 21:39 Assessment & Plan Assessment & Plan (1) Schizoaffective disorder, depressive type: Status: Acute Code(s): F25.1 - Schizoaffective disorder, depressive type (2) Post traumatic stress disorder (PTSD): Status: Acute Code(s): F43.10 - Post-traumatic stress disorder, unspecified (3) Cocaine use disorder: Status: Acute Code(s): F14.10 - Cocaine abuse, uncomplicated (4) Opioid use disorder: Status: Acute Code(s): F11.90 - Opioid use, unspecified, uncomplicated Plan Patient is a 38 year old male with hx of Schizoaffective d/o, PTSD, opioid use d/o, cocaine use d/o who presented to ER d/t auditory and visual hallucinations secondary to medication non-compliance. Plan: CV 15 minute safety checks continue home medications encourage groups consider PAL[facility]IOS discharge planning 10/07: associate director regulatory affairs present. Pt reports feeling better today; pt stated, I'm feeling tired from the medications. I'm no longer having voices or seeing anything. They stopped yesterday . Pt reports he is sleeping and eating well. Pt denies SI/HI/VH/AH. Pt reports he is open to the idea of receiving PALACIOS. Will continue to discuss with pt. 10/08: Plan for patient to receive Invega Sustenna on Thursday; pt aware. 10/09: Continue current regimen and plans 10/10: Continue current plans and regimen. Reason for continued inpatient stay Substantial Risk for: rapid decompensation Time Spent With Patient Time: Total time managing care of this patient today ____ minutes.
[2023-10-11 19:52] VITALS: BP 125/82; PULSE 76; RESP 16; TEMP 37.1; O2SAT 97
[2023-10-11] MEDS: Nicotine Polacrilex 2 MG GUM 4 MG BUCCAL (20:53)
[2023-10-11 22:40] VITALS: BP 135/83; PULSE 85
[2023-10-11] MEDS: risperiDONE 2 MG TABLET 4 MG PO (22:46)
[2023-10-11] MEDS: Benztropine Mesylate 1 MG TABLET PO (22:46)
[2023-10-11] MEDS: Prazosin HCL 1 MG CAPSULE PO (22:46)
[2023-10-12] MEDS: hydrOXYzine HCL 25 MG TABLET PO ×2 (00:34→23:21)
[2023-10-12] MEDS: traZODone HCL 50 MG TABLET PO ×2 (00:34→23:21)
[2023-10-12 07:55] VITALS: BP 121/93; PULSE 77; RESP 18; TEMP 36.6; O2SAT 100
[2023-10-12] MEDS: Nicotine 21 MG PATCH.TD24 TRANSDERMA (08:40)
[2023-10-12] MEDS: Fluticasone Propionate Nasal 16 GM SPRAY 1 SPRAY NOSTRIL-B (08:41)
[2023-10-12] MEDS: methADONE HCl 20 MG/2 ML ORAL.CONC 100 MG PO (08:42)
[2023-10-12] MEDS: FLUoxetine HCl 20 MG CAPSULE 40 MG PO (08:44)
--- NOTE | 2023-10-12 14:29 | P.PNPSI_ITS ---
Subjective Subjective Date of Service: 10/12/23 Reason For Visit: crisis Subjective Notes: Conditional Voluntary Interim History: Reviewed with Dr. Burrell. Pt reports feeling good today; pt reports he is agreeable to receiving Invega Sustenna IM today; risks/benefits reviewed. Pt is hoping for discharge soon. Pt denies SI/HI/VH/AH. Start: Invega Sustenna 234mg IM once patient to receive 156mg IM in one week with outpatient providers. Medication Compliance: Yes Side effects from medications: No Attending Groups: No Review of Systems Constitutional: Reports as per HPI Eyes: Reports as per HPI Reports as per HPI Cardiovascular: Reports as per HPI Respiratory: Reports as per HPI Gastrointestinal: Reports as per HPI Genitourinary: Reports as per HPI Musculoskeletal: Reports as per HPI Skin/Breast: Reports as per HPI Reports as per HPI Psychiatric: Reports as per HPI Endocrine: Reports as per HPI Hematologic/Lymphatic: Reports as per HPI Allergic/Immunologic: Reports as per HPI Mental Status Exam Mental Status Exam Narrative: Pt is alert and oriented; behavior is cooperative and calm; dressed in casual attire; mood is described as good ; eye contact appropriate; Speech is normal rate, volume and not pressured; thought process is organized; Thought content is on tx; otherwise pertinent to relevant topics and without any delusional content, paranoid ideations or grandiosity; denies SI/HI/VH/AH. Diagnostics Vital Signs (24Hr): Vital Signs - 24 hr 10/11/23 19:52 10/11/23 22:40 10/12/23 07:55 Temperature 98.8 F 97.9 F Pulse Rate 76 85 77 Respiratory Rate 16 18 Blood Pressure 125/82 135/83 121/93 H Pulse Oximetry 97 100 Oxygen Delivery Method Room Air Room Air BMI result Body Mass Index 36.7 Labs 10/09/23 13:40 10/09/23 13:40 Medications Medications Current Medications Acetaminophen (Acetaminophen 325 Mg Tablet) 650 mg PO Q6H PRN PRN Reason: Headache/Pain Mild Scale (1-3) Al Hydroxide/Mg Hydroxide (Magnesium Hydrox/Alum Hydrox 30 Ml Oral.Susp) 30 ml PO Q6H PRN PRN Reason: Heartburn/Nausea Benztropine Mesylate (Benztropine Mesylate 1 Mg Tablet) 1 mg PO BEDTIME JOHN Last Admin: 10/11/23 22:46 Dose: 1 mg Fluoxetine HCl (Fluoxetine Hcl 20 Mg Capsule) 40 mg PO DAILY@0900 [facility] Last Admin: 10/12/23 08:44 Dose: 40 mg Fluticasone Propionate (Fluticasone Propionate Nasal 16 Gm [place]) 1 spray NOSTRIL-B DAILY [facility] Last Admin: 10/12/23 08:41 Dose: 1 spray Haloperidol (Haloperidol 5 Mg Tablet) 5 mg PO BID PRN PRN Reason: psychosis/agitation Last Admin: 10/08/23 22:15 Dose: 5 mg Hydroxyzine HCl (Hydroxyzine Hcl 25 Mg Tablet) 25 mg PO Q6H PRN PRN Reason: Anxiety Last Admin: 10/12/23 00:34 Dose: 25 mg Magnesium Hydroxide (Milk Of Magnesia 30 Ml Oral.Susp) 30 ml PO DAILY PRN PRN Reason: Constipation Methadone HCl (Methadone Hcl 20 Mg/2 Ml Oral.Conc) 100 mg PO DAILY [facility] Last Admin: 10/12/23 08:42 Dose: 100 mg Nicotine (Nicotine 21 Mg Patch.Td24) 21 mg TRANSDERMA DAILY [facility] Last Admin: 10/12/23 08:40 Dose: 21 mg Nicotine Polacrilex (Nicotine Polacrilex 2 Mg Gum) 4 mg BUCCAL Q2H PRN PRN Reason: nicotine cravings Last Admin: 10/11/23 20:53 Dose: 4 mg Prazosin HCl (Prazosin Hcl 1 Mg Capsule) 1 mg PO BEDTIME [facility]; Protocol Last Admin: 10/11/23 22:46 Dose: 1 mg Risperidone (Risperidone 2 Mg Tablet) 4 mg PO BEDTIME [facility] Last Admin: 10/11/23 22:46 Dose: 4 mg Trazodone HCl (Trazodone Hcl 50 Mg Tablet) 50 mg PO BEDTIME MRX1 PRN PRN Reason: Insomnia Last Admin: 10/12/23 00:34 Dose: 50 mg Allergies Allergies Allergy/AdvReac Type Severity Reaction Status Date / Time SEAFOOD Allergy Unknown HIVES Uncoded 10/06/23 21:39 Assessment & Plan Assessment & Plan (1) Schizoaffective disorder, depressive type: Status: Acute Code(s): F25.1 - Schizoaffective disorder, depressive type (2) Post traumatic stress disorder (PTSD): Status: Acute Code(s): F43.10 - Post-traumatic stress disorder, unspecified (3) Cocaine use disorder: Status: Acute Code(s): F14.10 - Cocaine abuse, uncomplicated (4) Opioid use disorder: Status: Acute Code(s): F11.90 - Opioid use, unspecified, uncomplicated Plan Patient is a 38 year old male with hx of Schizoaffective d/o, PTSD, opioid use d/o, cocaine use d/o who presented to ER d/t auditory and visual hallucinations secondary to medication non-compliance. Plan: CV 15 minute safety checks continue home medications encourage groups consider PALACIOS discharge planning 10/07: wire rope sales representative present. Pt reports feeling better today; pt stated, I'm feeling tired from the medications. I'm no longer having voices or seeing anything. They stopped yesterday . Pt reports he is sleeping and eating well. Pt denies SI/HI/VH/AH. Pt reports he is open to the idea of receiving PALACIOS. Will continue to discuss with pt. 10/08: Plan for patient to receive Invega Sustenna on Thursday; pt aware. 10/09: Continue current regimen and plans 10/10: Continue current plans and regimen. 10/11: Pt reports feeling good today; pt reports he is agreeable to receiving Invega Sustenna IM today; risks/benefits reviewed. Pt is hoping for discharge soon. Pt denies SI/HI/VH/AH. Start: Invega Sustenna 234mg IM once patient to receive 156mg IM in one week with outpatient providers. Patient educated on: diagnosis and medication risk/benefits Informed Consent: understands Reason for continued inpatient stay Substantial Risk for: med/psych decompensation Time Spent With Patient Time: Total time managing care of this patient today _20___ minutes.
[2023-10-12] MEDS: Paliperidone Palmitate 234 MG/1.5 ML SYRINGE IM (15:55)
[2023-10-12 19:30] VITALS: BP 127/74; PULSE 68; RESP 16; TEMP 36.2; O2SAT 94
[2023-10-12] MEDS: Benztropine Mesylate 1 MG TABLET PO (22:25)
[2023-10-12] MEDS: risperiDONE 2 MG TABLET 4 MG PO (22:25)
[2023-10-12] MEDS: Nicotine Polacrilex 2 MG GUM 4 MG BUCCAL (23:29)
[2023-10-13] MEDS: traZODone HCL 50 MG TABLET PO ×2 (00:16→22:42)
[2023-10-13 07:48] VITALS: BP 120/72; PULSE 75; RESP 16; TEMP 36.9; O2SAT 97
--- NOTE | 2023-10-13 08:52 | HO.PSYCHPN ---
Subjective Subjective Date of Service: 10/13/23 Reason For Visit: crisis Subjective Notes: Conditional Voluntary Interim History: Reviewed with Dr. Burrell. Pt reports feeling good today; he reports looking forward to leaving tomorrow. denies any side effects from Invega Sustenna IM yesterday. Pt denies SI/HI/VH/AH. patient to receive 156mg IM in one week on 10/19/23, followed by 11/19/23; to be administered by pharmacy; pt aware. Medication Compliance: Yes Side effects from medications: No Attending Groups: No Review of Systems Constitutional: Reports as per HPI Eyes: Reports as per HPI Reports as per HPI Cardiovascular: Reports as per HPI Respiratory: Reports as per HPI Gastrointestinal: Reports as per HPI Genitourinary: Reports as per HPI Musculoskeletal: Reports as per HPI Skin/Breast: Reports as per HPI Reports as per HPI Psychiatric: Reports as per HPI Endocrine: Reports as per HPI Hematologic/Lymphatic: Reports as per HPI Allergic/Immunologic: Reports as per HPI Mental Status Exam Mental Status Exam Narrative: Pt is alert and oriented; behavior is cooperative and calm; dressed in casual attire; mood is described as good ; eye contact appropriate; Speech is normal rate, volume and not pressured; thought process is organized; Thought content is on tx; otherwise pertinent to relevant topics and without any delusional content, paranoid ideations or grandiosity; denies SI/HI/VH/AH. Diagnostics Vital Signs (24Hr): Vital Signs - 24 hr 10/12/23 19:30 10/13/23 07:48 Temperature 97.2 F 98.5 F Pulse Rate 68 75 Respiratory Rate 16 16 Blood Pressure 127/74 120/72 Pulse Oximetry 94 97 Oxygen Delivery Method Room Air Room Air BMI result Body Mass Index 36.7 Labs 10/09/23 13:40 10/09/23 13:40 Medications Medications Current Medications Acetaminophen (Acetaminophen 325 Mg Tablet) 650 mg PO Q6H PRN PRN Reason: Headache/Pain Mild Scale (1-3) Al Hydroxide/Mg Hydroxide (Magnesium Hydrox/Alum Hydrox 30 Ml Oral.Susp) 30 ml PO Q6H PRN PRN Reason: Heartburn/Nausea Benztropine Mesylate (Benztropine Mesylate 1 Mg Tablet) 1 mg PO BEDTIME JOHN Last Admin: 10/12/23 22:25 Dose: 1 mg Fluoxetine HCl (Fluoxetine Hcl 20 Mg Capsule) 40 mg PO DAILY@0900 REPLACED BY [facility] Last Admin: 10/12/23 08:44 Dose: 40 mg Fluticasone Propionate (Fluticasone Propionate Nasal 16 Gm [place]) 1 spray NOSTRIL-B DAILY REPLACED BY [facility] Last Admin: 10/12/23 08:41 Dose: 1 spray Hydroxyzine HCl (Hydroxyzine Hcl 25 Mg Tablet) 25 mg PO Q6H PRN PRN Reason: Anxiety Last Admin: 10/12/23 23:21 Dose: 25 mg Magnesium Hydroxide (Milk Of Magnesia 30 Ml Oral.Susp) 30 ml PO DAILY PRN PRN Reason: Constipation Methadone HCl (Methadone Hcl 20 Mg/2 Ml Oral.Conc) 100 mg PO DAILY REPLACED BY [facility] Last Admin: 10/12/23 08:42 Dose: 100 mg Nicotine (Nicotine 21 Mg Patch.Td24) 21 mg TRANSDERMA DAILY REPLACED BY [facility] Last Admin: 10/12/23 08:40 Dose: 21 mg Nicotine Polacrilex (Nicotine Polacrilex 2 Mg Gum) 4 mg BUCCAL Q2H PRN PRN Reason: nicotine cravings Last Admin: 10/12/23 23:29 Dose: 4 mg Risperidone (Risperidone 2 Mg Tablet) 4 mg PO BEDTIME REPLACED BY [facility] Last Admin: 10/12/23 22:25 Dose: 4 mg Trazodone HCl (Trazodone Hcl 50 Mg Tablet) 50 mg PO BEDTIME MRX1 PRN PRN Reason: Insomnia Last Admin: 10/13/23 00:16 Dose: 50 mg Allergies Allergies Allergy/AdvReac Type Severity Reaction Status Date / Time SEAFOOD Allergy Unknown HIVES Uncoded 10/06/23 21:39 Assessment & Plan Assessment & Plan (1) Schizoaffective disorder, depressive type: Status: Acute Code(s): F25.1 - Schizoaffective disorder, depressive type (2) Post traumatic stress disorder (PTSD): Status: Acute Code(s): F43.10 - Post-traumatic stress disorder, unspecified (3) Cocaine use disorder: Status: Acute Code(s): F14.10 - Cocaine abuse, uncomplicated (4) Opioid use disorder: Status: Acute Code(s): F11.90 - Opioid use, unspecified, uncomplicated Plan Patient is a 38 year old male with hx of Schizoaffective d/o, PTSD, opioid use d/o, cocaine use d/o who presented to ER d/t auditory and visual hallucinations secondary to medication non-compliance. Plan: CV 15 minute safety checks continue home medications encourage groups consider PALACIOS discharge planning 10/07: manual training teacher present. Pt reports feeling better today; pt stated, I'm feeling tired from the medications. I'm no longer having voices or seeing anything. They stopped yesterday . Pt reports he is sleeping and eating well. Pt denies SI/HI/VH/AH. Pt reports he is open to the idea of receiving PALACIOS. Will continue to discuss with pt. 10/08: Plan for patient to receive Invega Sustenna on Thursday; pt aware. 10/09: Continue current regimen and plans 10/10: Continue current plans and regimen. 10/11: Pt reports feeling good today; pt reports he is agreeable to receiving Invega Sustenna IM today; risks/benefits reviewed. Pt is hoping for discharge soon. Pt denies SI/HI/VH/AH. Start: Invega Sustenna 234mg IM once patient to receive 156mg IM in one week with outpatient providers. 10/12: Pt reports feeling good today; he reports looking forward to leaving tomorrow. denies any side effects from Invega Sustenna IM yesterday. Pt denies SI/HI/VH/AH. patient to receive 156mg IM in one week on 10/19/23, followed by 11/19/23; to be administered by pharmacy; pt aware. Patient educated on: diagnosis, medication risk/benefits and therapeutic strategies Informed Consent: understands Reason for continued inpatient stay Substantial Risk for: stable for discharge Time Spent With Patient Time: Total time managing care of this patient today _20___ minutes.
[2023-10-13] MEDS: Nicotine 21 MG PATCH.TD24 TRANSDERMA (08:53)
[2023-10-13] MEDS: Acetaminophen 325 MG TABLET 650 MG PO (08:54)
[2023-10-13] MEDS: FLUoxetine HCl 20 MG CAPSULE 40 MG PO (08:54)
[2023-10-13] MEDS: methADONE HCl 20 MG/2 ML ORAL.CONC 100 MG PO (08:54)
[2023-10-13] MEDS: Fluticasone Propionate Nasal 16 GM SPRAY 1 SPRAY NOSTRIL-B (08:55)
[2023-10-13] MEDS: Nicotine Polacrilex 2 MG GUM 4 MG BUCCAL (20:17)
[2023-10-13 21:41] VITALS: BP 158/95; PULSE 115; RESP 16; TEMP 37.1; O2SAT 95
[2023-10-13] MEDS: Benztropine Mesylate 1 MG TABLET PO (22:42)
[2023-10-13] MEDS: hydrOXYzine HCL 25 MG TABLET PO (22:42)
[2023-10-13] MEDS: risperiDONE 2 MG TABLET 4 MG PO (22:42)
[2023-10-14] MEDS: Nicotine Polacrilex 2 MG GUM 4 MG BUCCAL (03:52)
--- NOTE | 2023-10-14 08:27 | P.DS_ITS ---
DS: Providers Provider Date of Service: 10/14/23 Date of admission: 10/07/23 11:40 Date of discharge: 10/14/23 Primary care physician: Unknown Physician Admitting clinician: Dana Evans Attending physician on admission: Kole Burrell Attending physician on discharge: Kole Burrell Discharging clinician: Dana Evans DS: Diagnosis Discharge Diagnosis (1) Schizoaffective disorder, depressive type: Status: Acute (2) Post traumatic stress disorder (PTSD): Status: Acute (3) Cocaine use disorder: Status: Acute (4) Opioid use disorder: Status: Acute DS: Medications Discharge Medications Home Medications: Home Medications ?Medication ?Instructions ?Recorded ?Confirmed methadone 10 mg/mL oral concentrate 100 mg PO DAILY 07/01/21 10/07/23 Previous Rx's ?Medication ?Instructions ?Recorded benztropine 1 mg tablet 1 mg PO BEDTIME 30 days #30 tabs 10/13/23 epinephrine 0.3 mg/0.3 mL 0.3 mg (0.3 mL) IM Q4H PRN 10/13/23 injection, auto-injector (EpiPen) anaphylaxis #2 ea fluoxetine 40 mg capsule 40 mg PO DAILY 30 days #30 caps 10/13/23 paliperidone palmitate 156 mg/mL 156 mg IM Q30D #1 mL 10/13/23 intramuscular syringe (Invega Sustenna) risperidone 1 mg tablet (Risperdal) 1 mg PO DAILY PRN Hallucinations 10/13/23 30 days #30 tabs Mental Status Exam Mental Status Exam Narrative: Pt is alert and oriented; behavior is cooperative and calm; dressed in casual attire; mood is described as good ; eye contact appropriate; Speech is normal rate, volume and not pressured; thought process is organized; Thought content is on tx; otherwise pertinent to relevant topics and without any delusional content, paranoid ideations or grandiosity; denies SI/HI/VH/AH. Data Data Completed and Pending Completed studies during hospitalization [Text1]: 10/08/23 10/09/23 08:30 13:40 WBC 6.9 RBC 4.44 L Hgb 14.0 Hct 40.7 L MCV 91.7 MCH 31.5 MCHC 34.4 RDW 12.6 Plt Count 196 MPV 9.7 Immature Gran % (Auto) 0.4 Neut % (Auto) 31.8 L Lymph % (Auto) 52.9 H Hunt % (Auto) 10.3 Eos % (Auto) 3.9 Baso % (Auto) 0.7 Lymph # (Auto) 3.7 Hunt # (Auto) 0.7 Eos # (Auto) 0.3 Baso # (Auto) 0.1 Abs Immat Gran (auto) 0.03 Absolute Neuts (auto) 2.2 Absolute Nucleated RBC 0.000 Nucleated RBC % (auto) 0.0 Sodium 140 138 Potassium 3.8 3.6 Chloride 103 106 Carbon Dioxide 26 22 Anion Gap 15 14 BUN 14 13 Creatinine 0.92 0.99 Estim Creat Clear Calc 134.7 125.2 Estimated GFR > 60 > 60 Random Glucose 135 H Fasting Glucose 88 Calcium 9.5 9.6 Total Bilirubin 0.8 0.3 Direct Bilirubin 0.1 AST 43 H 38 H ALT 71 H 66 H Alkaline Phosphatase 61 63 Ammonia 39 Total Protein 7.4 7.5 Albumin 4.4 4.4 Triglycerides 169 H Cholesterol 272 H LDL Cholesterol, Calc 199 H HDL Cholesterol 40 L DS: Summary Hospital Course Hospital Course: Patient is a 38 year old male with hx of Schizoaffective d/o, PTSD, opioid use d/o, cocaine use d/o who presented to ER d/t auditory and visual hallucinations secondary to medication non-compliance. Per crisis report, pt was brought into ER by his girlfriend and mother d/t pt reporting hearing and seeing things that are not there . Pt reports he hears voices telling him to hurt his girlfriend and sometimes sees people who aren't there. Pts girlfriend reported pt has been observed self dialoguing and has increased in frequency. Pt is prescribed multiple medications but has stopped most of them. Pt has been becoming increasingly worse over the past 2-3 weeks which is the time frame that he stopped taking all of his medications regularly. Pt did not have a reason why he stopped them. Pt reported poor sleep. Pt denies SI/HI with no plan or intent, but endorsing AH/VH with command AH to hurt his girlfriend. Pt reports when he is taking his medications as prescribed, he does not have AH/VH. Pt reports he has not been using substances for the past two months but has been drinking 2-3 nips of ETOH a night before bed. UTOX positive only for methadone. Per nursing admission note, Upon arrival to the unit, pt appeared, tense, confused and disorganized. Pt was making bizarre gestures and noises and blinking his eyes frequently. Pt was not responding to verbal cues. Pt was resistive to care and refused vitals and skin check. Security was called. Pt eventually changed over his clothes and skin check was complete, pt noted to have dry cracked feet. Pt was given Ativan 1mg PO and Haldol 5mg PO at 1251. Pt placed on 1:1 for safety. Pt immediately fell asleep. Upon waking up pt was alert, oriented, pleasant and cooperative. During admission assessment, pt present alert, oriented, calm, cooperative. survival equipment repairer present. Pt stated, I came to the hospital because I was feeling bad. I had the same feeling when I was using drugs. I was sweating, agitated, and my genitals were hot . Pt reported having auditory and visual hallucinations that are tell me a lot of shit like to kill people and making fun of me. I'm seeing ghosts of people I don't know . Pt reports he has not used substances for the past two months. He reports stopping his medications d/t dry mouth . Pt denies SI/HI. He is agreeable to restarting his home medications. Discussed risks/benefits of PALACIOS; pt reports he would consider this option. During hospital course, CV 15 minute safety checks continue home medications encourage groups consider PALACIOS discharge planning survival equipment repairer present. Pt reports feeling better today; pt stated, I'm feeling tired from the medications. I'm no longer having voices or seeing anything. They stopped yesterday . Pt reports he is sleeping and eating well. Pt denies SI/HI/VH/AH. Pt reports he is open to the idea of receiving PALACIOS. Will continue to discuss with pt. Plan for patient to receive Invega Sustenna on Thursday; pt aware. Pt reports feeling good today; pt reports he is agreeable to receiving Invega Sustenna IM today; risks/benefits reviewed. Pt is hoping for discharge soon. Pt denies SI/HI/VH/AH. Start: Invega Sustenna 234mg IM once patient to receive 156mg IM in one week with outpatient providers. Pt reports feeling good today; he reports looking forward to leaving tomorrow. denies any side effects from Invega Sustenna IM yesterday. Pt denies SI/HI/VH/AH. patient to receive 156mg IM in one week on 10/19/23, followed by 11/19/23; to be administered by pharmacy; pt aware. Pt reports feeling good today; pt reports he plans on following up with his outpatient providers. Pt denies SI/HI/VH/AH. Pt educated regarding his next Invega Sustenna IM; pt stated he understood. Time spent discussing smoking cessation with patient: 3 to 10 minutes Status at Discharge Cognitive/behavioral status at discharge: Patient was interviewed prior to discharge and found to be fully oriented and without SI or HI. Patient has insight and demonstrates good judgment in terms of wanting to pursue treatment. Patient has a safety plan that includes presenting to the closest ER or calling 911 if feeling unsafe. Functional status at discharge: independent ambulation Overall status at discharge: patient is back to baseline Time Spent with Patient Time attestation: Total time managing care of this patient today _20___ minutes. Time spent: Less than 30 minutes Discharge Plan Discharge Anticipated Discharge Date/Time: 10/14/23 11:00 Patient Disposition: Home, Self-Care Discharge Diagnosis: Schizoaffective d/o, PTSD, cocaine use d/o, opioid use d/o. Referrals: [facility]-Luke Blue (Therapist) [Other] - 10/15/23 1:15 pm [facility]- Dora Reddy (Medication Provider) [Other] - 10/23/23 3:00 pm Invega Sustenna ([facility]) [Other] - 10/19/23 9:00 am (Please go to [facility] located inside of [facility] on [address] to get your second injection of Invega Sustenna. The pharmacy is open from 8-430pm on Thursday10/19/23 ) Physician,Unknown J [Primary Care Provider] - 1 Week Discharge Medications: New risperidone [Risperdal] 1 mg tablet 1 mg PO DAILY PRN (Reason: Hallucinations) 30 Days Qty: 30 0RF epinephrine [EpiPen] 0.3 mg/0.3 mL auto-injector 0.3 mg IM Q4H PRN (Reason: anaphylaxis) Qty: 2 0RF Invega Sustenna 156 mg/mL syringe 156 mg IM Q30D Qty: 1 1RF Rx Instructions: Injection due on 10/19/23. Next injection to be 11/19/23. Continued methadone 10 mg/mL Concentrate 100 mg PO DAILY benztropine 1 mg tablet 1 mg PO BEDTIME 30 Days Qty: 30 0RF Changed fluoxetine 40 mg capsule 40 mg PO DAILY 30 Days Qty: 30 0RF Discontinued nicotine (polacrilex) 2 mg Gum 4 mg buccal Q2H PRN (Reason: nicotine cravings) 30 Days Qty: 100 0RF risperidone [Risperdal] 4 mg tablet 4 mg PO BEDTIME Discharge Orders: Discharge Order (Routine); Ordered 10/14/23 Ordered By: Dana Evans Diet: Regular diet Activity on Discharge: As tolerated Stand Alone Forms: Patient Portal Discharge page Print Language: Choose Not To Answer Care Plan Goals: Maintain mood and safe behaviors Take medications as prescribed Continue to pursue sobriety Practice coping skills Continue with outpatient providers and reach out to them as needed Health Concerns: Mood stability and behaviors Sobriety Plan of Treatment: Follow up with your PCP, psychiatric provider and other outpatient providers regarding above concerns Take medications as prescribed Go to [facility] to receive your next injection of Invega Sustenna on 10/19/23. Followed by monthly injections starting on 11/19/23. Assessment: Patient was interviewed prior to discharge and found to be fully oriented and without SI or HI. Patient has insight and demonstrates good judgment in terms of wanting to pursue treatment. Patient has a safety plan that includes presenting to the closest ER or calling 911 if feeling unsafe.
[2023-10-14] MEDS: methADONE HCl 20 MG/2 ML ORAL.CONC 100 MG PO (08:51)
[2023-10-14] MEDS: FLUoxetine HCl 20 MG CAPSULE 40 MG PO (08:51)
[2023-10-14] MEDS: Naloxone HCl Nasal TAKE HOME 4 MG SPRAY 8 MG NOSTRILALT (09:13)
== END 2023-10-14 11:15 | disposition home or self-care (01) | DRG 750 ==
LOC: HO.ED 10-07 07:02 → HO.PADLT16 10-07 11:44
PROVIDERS: Emergency Medicine; Admitting Provider Registered Nurse; Emergency Provider Emergency Medicine Emergency Medical Services; Responsible Provider Registered Nurse; Visit Provider Psychiatry & Neurology Psychiatry
DX: F25.1 Schizoaffective disorder, depressive type (principal); Z91.148 Patient's other noncompliance with medication regimen for other reason; F11.20 Opioid dependence, uncomplicated; F43.10 Post-traumatic stress disorder, unspecified; F14.10 Cocaine abuse, uncomplicated; Z62.810 Personal history of physical and sexual abuse in childhood; Z79.899 Other long term (current) drug therapy
CPT/HCPCS: 36415; 80048; 80053; 80061; 80076; 80307; 81001; 82140; 83735; 84484; 85025; 99285; J2426; S9485

== ENCOUNTER → 2023-10-07 11:40 | Outpatient (BNV) | payer OTHER, SELFPAY | PROVIDERS: Admitting Provider Registered Nurse; Emergency Provider Emergency Medicine Emergency Medical Services; Responsible Provider Registered Nurse; Visit Provider Registered Nurse | DX: F25.1 Schizoaffective disorder, depressive type (principal); F14.10 Cocaine abuse, uncomplicated; F43.11 Post-traumatic stress disorder, acute; F11.90 Opioid use, unspecified, uncomplicated | CPT/HCPCS: 99231; 99232; 99233 ==

== ENCOUNTER 2023-11-24 11:39 | Outpatient (REF) | payer MEDICAID, SELFPAY ==
[2023-11-24 13:50] LABS: MANUAL DIFF FLAG NO
[2023-11-24 14:05] LABS: Basophils Absolute Auto 0.1 X10*3/uL (0.0-0.2); Basophils Percent Auto 0.9 % (0-2); Eosinophils Absolute Auto 0.2 X10*3/uL (0.0-0.4); Eosinophils Percent Auto 3.7 % (0-4); Hematocrit 41.5 % (42.0-52.0); Hemoglobin 13.8 g/dl (14.0-18.0); Imm Gran Abs Auto 0.04 X10*3/uL (0.00-0.03); Imm Gran Pct Auto 0.7 % (0.0-0.4); Lymphocytes Absolute Auto 2.7 X10*3/uL (1.2-4.9); Lymphocytes Percent Auto 49.4 % (20-40); Mean Corpuscular HGB Conc 33.3 g/dl (31.0-36.0); Mean Corpuscular Hemoglobin 30.5 pg (27.0-33.0); Mean Corpuscular Volume 91.8 fL (80.0-98.0); Mean Platelet Volume 10.5 fL (9.4-12.4); Monocytes Absolute Auto 0.6 X10*3/uL (0.1-1.2); Monocytes Percent Auto 11.3 % (2-11); Neutrophils Absolute Auto 1.8 x10*3/uL (2.0-8.3); Platelet Count 188 X10*3/uL (160-400); Red Blood Count 4.52 X10*6/uL (4.60-5.80); Red Cell Distribution Width 12.5 % (11.0-16.0); White Blood Count 5.4 X10*3/uL (4.8-10.8)
[2023-11-24 14:12] LABS: Estimated Average Glucose 108 mg/dL; Hemoglobin A1c % 5.4 % (<6.0)
[2023-11-24 14:40] LABS: Anion Gap 11 (12-20)
[2023-11-24 14:44] LABS: Alanine Aminotransferase 51 U/L (0-40); Albumin Level 4.4 g/dL (3.5-5.0); Alkaline Phosphatase 63 U/L (39-117); Aspartate Amino Transferase 34 U/L (5-37); Bilirubin Total 0.2 mg/dL (0.0-1.0); Blood Urea Nitrogen 9 mg/dL (9-16); Calcium 9.7 mg/dL (8.4-10.2); Carbon Dioxide 28 mmol/L (22-29); Chloride 103 mmol/L (96-108); Cholesterol 263 mg/dL (<200); Estimated Glomerular Filt Rate > 60; Glucose Random 90 mg/dL (60-115); HDL Cholesterol 33 mg/dL (>40); LDL Cholesterol Calculated 161 mg/dL (<100); Potassium 4.1 mmol/L (3.3-5.1); Sodium 138 mmol/L (135-145); Total Protein 7.1 g/dL (6.5-8.0); Triglycerides 345 mg/dL (<150)
[2023-11-24 15:19] LABS: CT PCR NOT DETECTED (Not Detect.); NG PCR NOT DETECTED (Not Detect.)
[2023-11-25 04:44] LABS: HIV AB/AG Nonreactive (Nonreactive); HIV Num 1 0.13 S/CO (0.00-0.99); ~HepC Num1 15.96 S/CO (0.00-0.79); ~Hepatitis C Antibody Reactive (Nonreactive)
[2023-11-26 10:09] LABS: RPR Rapid Plasma Reagin NON-REACTIVE (NON-REACTIVE)
[2023-11-28 20:13] LABS: HCV Log PCR <1.18 NOT DETECTED Log IU/mL (NOT DETECTED); HepC Viral Load <15 NOT DETECTED IU/mL (NOT DETECTED)
== END 2023-11-24 11:40 | disposition home or self-care (01) ==
LOC: HO.HHCL 11:39
PROVIDERS: Visit Provider Nurse Practitioner Family
DX: Z00.00 Encounter for general adult medical examination without abnormal findings (principal); B19.20 Unspecified viral hepatitis C without hepatic coma; Z71.3 Dietary counseling and surveillance
CPT/HCPCS: 36415; 80053; 80061; 83036; 85025; 86592; 86803; 87389; 87491; 87522; 87591

== ENCOUNTER 2024-11-10 11:45 | Outpatient (REF) | payer MEDICAID, SELFPAY ==
--- OUTSIDE RECORDS SUMMARY | 2024-11-10 12:36 | XMS_ITS | Encounter Summary ---
Author Organization [facility] Address [address] [place] [address] Care Team Providers Care Risk Control Manager Name Role Phone Gayatri Ron NP Primary Care Provider Encounter Details Date Type Department Care Team (Late st Contact Info) Description 04/29/2023 Telephone [facility] MEDICINE [address] [place] [id number] Gulshan Simpson, MoisésD Social History Tobacco Use Types Packs/Day Years Used Date Smoking Tobacco: Unknown Sex and Gender Information Value Date Recorded Sex Assigned at Male 02/24/2022 10:20 AM EDT Legal Sex Male 10:20 AM EDT Gender Identity Male 02/24/2022 10:20 AM EDT Sexual Orientation Straight 02/24/2022 10 :20 AM EDT documented as of this encounter Plan of Treatment Upcoming Encounters Date Type Department Care Team (Late st Contact Info) Description 11/23/2024 11:00 AM EDT Clinical Support [facility] MEDICINE [address] [place] [id number] documented as of this encounter Visit Diagnoses Not on filedocumented in this encounter Care Teams Risk Control Manager Relationship Specialty Start Date End Date Gayatri Ron NP [address] [place] [address] PCP - General Family Medicine 05/22/23 Liana Barroso Ultrasound SupervisorKnifer Up 01/14/23 documented as of this encounter
[2024-11-11 17:03] LABS: Follicle Stimulating Hormone 4.1 mIU/mL (1.4-12.8)
[2024-11-19 08:28] LABS: Estradiol Ultra Sensitive 17 pg/mL (< OR = 29)
== END 2024-11-10 11:46 | disposition home or self-care (01) ==
LOC: HO.HHCL 11:45
DX: N62 Hypertrophy of breast (principal)
CPT/HCPCS: 36415; 82670; 83001; 83002; 84146; 84403; 84443; 84702

== ENCOUNTER 2024-12-20 14:56 | Outpatient (REF) | payer MEDICAID, SELFPAY ==
--- OUTSIDE RECORDS SUMMARY | 2024-12-20 14:30 | XMS_ITS | Encounter Summary ---
Author Organization [facility] Address [address] [place] [address] 7[address] [place] [address] Care Team Providers Care Money Position Officer Name Role Phone Gayatri Ron NP Primary Care Provider [phone] Reason for Referral * Imaging (Routine) - Authorized Specialty Diagnoses / Procedures Referred By Contac t Referred To Contact Cardiology Diagnoses Murmur Procedures Transthoracic Echo (TTE) Complete Gayatri Ron NP [address] [place] [address] Phone: tel: fax: [address] Phone: tel: fax: Referral ID Status Reason Start Date Expiration Date Visits Requested Visits Authorized [id number] Authorized Perform Procedure 12/20/2024 12/20/2025 1 1 Encounter Details Date Type Department Care Team (Late st Contact Info) Description 12/20/2024 2:30 PM EDT Office Visit [facility] [address] [place] [address] Gayatri Ron NP [address] [place], [place] [id number] Tobacco use disorder (Primary Dx); Murmur; Alcohol use disorder Social History Tobacco Use Types Packs/Day Years Used Date Smoking Tobacco: Every Day Cigarettes Tobacco Cessation:Ready to Q uit: Not Asked; Counseling Given: Not Answered Alcohol Use Standard Drinks/Week Comments Never 0 (1 standard drink = 0.6 oz pur e alcohol) Alcohol Answer Date Recorded How often do you have a drink containing alcohol ? 4 11/09/2024 How many drinks containing a lcohol do you have on a typical day when you are drinking? 3 11/09/2024 How often do you have six or more drinks on one occasion? 4 11/09/2024 Depression Answer Date Recorded Patient Health Questionnaire-9 Score 0 12/20/2024 Patient Health Questionnaire-9 Score 0 12/20/2024 Last PHQ-9: Questionnaire Data Not on file 0 12/20/2024 Housing Stability Answer Date Recorded What is your housing situation today? I have jaymie mcintyre 12/20/[address] you li ve. Do you have problems with any of the following? None of the above 12/20/2024 Food Insecurity Answer Date Recorded Within the past 12 months, y ou worried that your food would run out before you got money to buy more: Never True 12/20/2024 Within the past 12 months,th e food you bought just didn't last and you didn't have enough money to get more: Never True Transportation Answer Date Recorded In the past 12 months, has l ack of transportation kept you from medical appts, meetings, work or from getting things needed for daily living? No 12/20/2024 Utilities Answer Date Recorded In the past 12 months, has t he electric, gas, oil or water company threatened to shut off services in your home? No 12/20/2024 Depression Answer Date Recorded Patient Health Questionnaire-2 Score 0 12/20/2024 Internet Access Answer Date Recorded Internet Access Q1 No 12/20/2024 Internet Access Q2 I do not want or need it 11/26 Sex and Gender Information Value Date Recorded Sex Assigned at Male 02/24/2022 10:20 AM EDT Legal Sex Male 10:20 AM EDT Gender Identity Male 02/24/2022 10:20 AM EDT Sexual Orientation Straight 02/24/2022 10 :20 AM EDT documented as of this encounter Last Filed Vital Signs Vital Sign Reading Time Taken Comments Blood Pressure 142/89 12/20/2024 2:27 PM EDT Pulse 106 12/20/2024 2:27 PM EDT Temperature 36.1 C (97 F) 12/20/2024 2:27 PM EDT Respiratory Rate 12 12/20/2024 2:27 PM EDT Oxygen Saturation 99% 12/20/2024 2:27 PM EDT Inhaled Oxygen Concentration - - Weight 111 kg (244 lb) 12/20/2024 2:27 PM EDT Height 170.2 cm (5' 7 ) 12/20/2024 2:27 PM EDT Body Mass Index 38.22 12/20/2024 2:27 PM EDT documented in this encounter Functional Status * Over the past 2 weeks, how often have you been bothered by any of the following problems? Question Answer Date of Assessment Author Patient Health Questionnaire -2 Score 0 12/20/2024 2:30 PM EDT Paty Lassiter MA * Little interest or pleasure in doing things Answer Date of Assessment Author Not at all 12/20/2024 2:30 PM EDT Barbie Lassiter MA * Feeling down, depressed, or hopeless Answer Date of Assessment Author Not at all 12/20/2024 2:30 PM EDT Barbie Lassiter MA * Trouble falling or staying asleep, or sleeping too much Answer Date of Assessment Author Not at all 12/20/2024 2:30 PM EDT Barbie Lassiter MA * Feeling tired or having little energy Answer Date of Assessment Author Not at all 12/20/2024 2:30 PM EDT Barbie Lassiter MA * Poor appetite or overeating Answer Date of Assessment Author Not at all 12/20/2024 2:30 PM EDT Barbie Lassiter MA * Feeling bad about yourself - or that you are a failure or have let yourself or your family down Answer Date of Assessment Author Not at all 12/20/2024 2:30 PM EDT Barbie Lassiter MA * Trouble concentrating on things, such as reading the newspaper or watching television Answer Date of Assessment Author Not at all 12/20/2024 2:30 PM EDT Barbie Lassiter MA * Moving or speaking so slowly that other people could have noticed? Or the opposite - being so fidgety or restless that you have been moving around a lot more than usual. Answer Date of Assessment Author Not at all 12/20/2024 2:30 PM EDT Barbie Lassiter MA * Thoughts that you would be better off or hurting yourself in some way Answer Date of Assessment Author Not at all 12/20/2024 2:30 PM EDT Barbie Lassiter MA * Patient Health Questionnaire-9 Score Answer Date of Assessment Author 0 12/20/2024 2:30 PM EDT Barbie Lassiter MA * Over the last 2 weeks, how often have you been bothered by any of the following problems? Question Answer Date of Assessment Author Feeling nervous, anxious, or on edge 0 12/20/2024 2:31 PM EDT Paty Lassiter MA Not being able to stop or co ntrol worrying 0 12/20/2024 2:31 PM EDT Paty Lassiter MA Worrying too much about diff erent things 0 12/20/2024 2:31 PM EDT Paty Lassiter MA Trouble relaxing 0 12/20/2024 2:31 PM EDT Paty Gibson MA Being so restless that it is hard to sit still 0 12/20/2024 2:31 PM EDT Paty Lassiter MA Becoming easily annoyed or irritable 0 12/20/2024 2:31 PM EDT Paty Lassiter MA Feeling afraid as if somethi ng awful might happen 0 12/20/2024 2:31 PM EDT Paty Lassiter MA SIVA-7 Total Score 0 12/20/2024 2:31 PM EDT Paty Lassiter MA documented as of this encounter Plan of Treatment Upcoming Encounters Date Type Department Care Team (Late st Contact Info) Description 01/31/2025 1:30 PM EDT Office Visit [facility] [address] [place] [address] Gayatri Ron NP [address] [place] [address] Scheduled Orders Name Type Priority Associated Diagnoses Order Schedule Transthoracic Echo (TTE) Complete Echocardiography Routine Murmur Expected: 12/20/2024 (Approximate), Expires: 12/20/2026 Comprehensive Metabolic Panel Lab Routine Murmur Expected: 12/20/2024 (Approximate), Expires: 12/20/2025 CBC auto differential Lab Routine Murmur Expected: 12/20/2024 (Approximate), Expires: 12/20/2025 Hemoglobin A1c Lab Routine Murmur Expected: 12/20/2024 (Approximate), Expires: 12/20/2025 documented as of this encounter Visit Diagnoses Diagnosis Tobacco use disorder- Primary Murmur Undiagnosed cardiac murmurs Alcohol use disorder documented in this encounter Additional Health Concerns Assessment Noted Time PHQ-9 Depression Total Score: 0 12/21/19 2:30 PM EDT documented as of this encounter Care Teams Money Position Officer Relationship Specialty Start Date End Date Gayatri Ron NP [address] [place] [id number] PCP - General Family Medicine 05/22/23 Liana Barroso Maintenance Shop LaborerElectroplater 01/14/23 Liana Barragan Maintenance Shop LaborerElectroplater 11/15/24 documented as of this encounter
--- OUTSIDE RECORDS SUMMARY | 2024-12-20 15:52 | XMS_ITS | Encounter Summary ---
Author Organization [facility] Address [address] [place] [address] [address] [place] [address] Care Team Providers Care Python Django Developer Name Role Phone Gayatri Ron NP Primary Care Provider [phone] Encounter Details Date Type Department Care Team (Late st Contact Info) Description 04/29/2023 Telephone [facility] [address] [place] [phone] Gulshan Simpson, MoisésD Social History Tobacco Use [...] Description 01/31/2025 1:30 PM EDT Office Visit [facility] [address] [place] [phone] Gayatri Ron NP [address] [place] [phone] documented as of this encounter Visit Diagnoses Not on filedocumented in this encounter Care Teams Python Django Developer Relationship Specialty Start Date End Date Gayatri Ron NP [address] [place] [phone] PCP - General Family Medicine 05/22/23 Liana Barroso Office Coordinator ReceptionistDrop Hammer Operator Helper 01/14/23 Liana Barragan Office Coordinator ReceptionistDrop Hammer Operator Helper 11/15/24 documented as of this encounter
--- OUTSIDE RECORDS SUMMARY | 2024-12-20 15:52 | XMS_ITS | Encounter Summary ---
Author Organization [employer] Address [address] [place] [address] Care Team Providers Care Elementary School Tutor Name Role Phone Gayatri Ron NP Primary Care Provider [phone] Encounter Details Date Type Department Care Team (Latest Contact Info) Description 12/20/2024 Travel Social History Tobacco Use Types Packs/Day Years Used Date Smoking Tobacco: Every Day Cigarettes Alcohol Use Standard Drinks/Week Comments Never 0 [...] AM EDT documented as of this encounter Functional Status * Over the [...] Author Not at all 12/20/2024 2:30 PM MEDINAT Barbie Lassiter MA * Feeling tired or having little energy Answer Date of Assessment Author Not at all 12/20/2024 2:30 PM EDT Barbei Lassiter MA * Poor appetite or overeating Answer Date of Assessment Author Not at all 12/20/2024 2:30 PM MEDINAT Babrie Lassiter MA * Feeling bad about yourself - or that you are a failure or have let yourself or your family down Answer Date of Assessment Author Not at all 12/20/2024 2:30 PM Barbie Saravia [place] * Trouble concentrating on things, such [...] Description 01/31/2025 1:30 PM EDT Office Visit [facility] [address] [place] [address] Gayatri Ron NP [address] [place] [address] documented as of this encounter Visit Diagnoses Not on filedocumented in this encounter Additional Health Concerns Assessment Noted Time PHQ-9 Depression Total Score: 0 12/21/19 25 2:30 PM EDT documented as of this encounter Care Teams Elementary School Tutor Relationship Specialty Start Date End Date Gayatri Ron NP [address] [place] [address] PCP - General Family Medicine 05/22/23 Liana Barroso Production MinerExecutive Director Sheltered Workshop 01/14/23 Liana Barragan Production MinerExecutive Director Sheltered Workshop 11/15/24 documented as of this encounter
--- OUTSIDE RECORDS SUMMARY | 2024-12-20 15:52 | XMS_ITS | Clinical Summary ---
Author Organization [employer] Address [address] [place] [address] Care Team Providers Care Oil Burner Installer Name Role Phone Gayatri Ron NP Primary Care Provider Allergies No known active allergies Medications benztropine (Cogentin) 1 MG tablet TAKE 1 TABLET BY MOUTH EVERYDAY AT BEDTIME 06/30/2022 Active FLUoxetine (PROzac) 20 MG capsule TAKE 1 CAPSULE BY MOUTH EVERY DAY IN THE MORNING 07/17/2022 Active OLANZapine (ZyPREXA) 10 MG tablet TAKE 1 TABLET BY MOUTH EVERYDAY AT BEDTIME 06/30/2022 Active risperiDONE (RisperDAL) 4 MG tablet TAKE 1 TABLET BY MOUTH EVERYDAY AT BEDTIME 06/30/2022 Active methadone (Dolophine) 10 MG/ML solution Take by mouth. Take 120mg once daily Active nicotine (Nicoderm CQ) 14 MG/24HR patch Place 1 patch on the skin 1 (one) time each day at the same time. 30 patch 11/24/2023 Active nicotine (Nicoderm CQ) 14 MG/24HR patch Place 1 patch on the skin 1 (one) time each day at the same time. 30 patch 12/20/2024 01/20/20 25 Active Active Problems Problem Noted Date Diagnosed Date Murmur 12/20/2024 Alcohol use disorder 12/20/2024 Tobacco use disorder 11/24/2023 Assessment & Plan (11/24/2023 6:33 PM EDT): Motivated to cut down/quit, pharmacologic options reviewed, trial patch Health care maintenance 11/24/2023 Assessment & Plan (11/24/2023 6:34 PM EDT): Metabolic labs ordered, anticipatory guidance reviewed . Follow up in 3 months Class 2 obesity 11/19/2023 Assessment & Plan (11/24/2023 5:25 PM EDT): Encouraged heart healthy lifestyle Viral hepatitis C 06/22/2022 Assessment & Plan (11/24/2023 5:25 PM EDT): Reports hx of treatment, will check labs today Inactive tuberculosis 08/01/2021 Overview (08/13/2022): 2 TB clinc appts. not kept- TB clinic case closed Assessment & Plan (11/24/2023 5:27 PM EDT): Denies cough fever or night sweats, neg x-ray Psychotic disorder 07/11/2021 Assessment & Plan (11/24/2023 6:32 PM EDT): Currently on injectable medication, in psychiatric care at [facility], doing well today denies any concerns Cocaine abuse 02/02/2015 Assessment & Plan (11/24/2023 6:32 PM EDT): 5 months of sobriety Hand joint pain 02/02/2015 Infected ulcer of skin 02/02/2015 Nondependent opioid abuse 02/02/2015 Assessment & Plan (11/24/2023 6:32 PM EDT): On 10 mg of methadone at outside clinic, aware or crs. Resolved Problems Problem Noted Date Diagnosed Date Resolved Date Class 1 obesity 08/13/2022 11/09/2024 Encounters Date Type Department Care Team Description 12/20/2024 2:30 PM EDT Office Visit [facility] [address] [place] [phone] Gayatri Ron NP Tobacco use disorder (Primary Dx); Murmur; Alcohol use disorder 12/20/2024 Travel 12/01/2024 2:00 PM EDT Clinical Support [facility] [address] [place] [phone] Carissa Carmona, VEDA Elevated BP without diagnosis of hypertension 12/01/2024 Travel 11/15/2024 Telephone [facility] [address] [place] [phone] Gayatri Ron, MELODY Care Coordination (ICP Care Plan ) 11/14/2024 Results Follow-Up [address] [phone] Christin Flores CNP Testosterone, Total, males (Adult), IA, LH, TSH W/Reflex to FT4, Additional followed-up results: 3 11/10/2024 Telephone [facility] [address] [place] [phone] Christin Flores CNP 11/09/2024 3:45 PM EDT Office Visit [address] [phone] Christin Flores CNP Gynecomastia, male (Primary Dx); Alcohol use disorder; Hypertension, unspecified type 11/09/2024 Travel 11/08/2024 Telephone [facility] [address] [place] [phone] Christin Flores CNP Chart Prep 11/08/[address] [phone] Gayatri Ron, MELODY Nurse Triage from Last 3 Months Immunizations Immunization Administration Dates Next Due Influenza injectable quadriv alent preservative free 02/15/2022 TD (adult), 2 Lf tetanus tox oid, preservative free, adsorbed 10/06/2017,09/19/2013,11/12/1999 Tdap 09/19/2013 Family History Medical History Relation Name Comments Diabetes Mother Relation Name Status Comments Mother Social History Tobacco Use Types Packs/Day Years [...] your housing situation today? I have jaymie cmintyre 12/20/[address] you li [...] Orientation Straight 02/24/2022 10 :20 AM EDT Last Filed Vital Signs Vital Sign Reading [...] Mass Index 38.22 12/20/2024 2:27 PM EDT Plan of Treatment Upcoming Encounters Date Type Department Care Team (Late st Contact Info) Description 01/31/2025 1:30 PM EDT Office Visit [facility] [address], [place] [phone] Gayatri Ron NP [address], [place] [phone] Health Maintenance Due Date Last Done Comments Dental Oral Exam 1985 Dental Prophylaxis 1985 Family Planning (PISQ) 2000 HPV Vaccines (1 - Male 3-dose series) 2000 Hepatitis A Vaccines (1 of 2 - Risk 2-dose series) 2004 Hepatitis B Vaccines (1 of 3 - 19+ 3-dose series) 2004 Pneumococcal Vaccine: Pediatrics (0 to 5 Years) and At-Risk Patients (6 to 49) Years (1 of 2 - PCV) 2004 Dental X-Ray: Full Mouth 07/22/2011 07/20/2008 Dental X-Ray: Bitewings 02/20/2021 02/20/2020 COVID-19 Vaccine ( - season) 2023 Influenza Vaccine (#1) 2024 02/15/2022 Alcohol/Substance Use Screening 11/09/2025 11/09/2024 Disability Screening 11/09/2025 11/09/2024 Depression Screening 12/20/2025 12/20/2024, 12/21/19 25 SDOH Screening 12/20/2025 12/20/2024 Tobacco Screening 12/20/2025 12/20/2024 DTaP/Tdap/Td Vaccines (5 - Td or Tdap) 10/07/2027 10/06/2017, 09/19/2013, 09/19/2013, Additional history exists Lipid Panel 11/23/2028 11/24/2023, 06/26, 07/11/2021 Zoster Vaccines (1 of 2) 2035 RSV Patients and Patients Aged 60 years or older (1 - 1-dose 75+ series) 2060 HIV Screening Completed 11/24/2023, 06/26, 07/11/2021, Additional history exists HIB Vaccines Aged Out No longer eligi ble based on patient's age to complete this topic IPV Vaccines Aged Out No longer eligi ble based on patient's age to complete this topic Meningococcal B Vaccine Aged Out No l onger eligible based on patient's age to complete this topic Meningococcal Vaccine Aged Out No rupa edwin eligible based on patient's age to complete this topic RSV under 20 months Aged Out No longe r eligible based on patient's age to complete this topic Rotavirus Vaccines Aged Out No longer eligible based on patient's age to complete this topic Procedures Procedure Name Priority Date/Time Associated Diagnosis Comments HCG, TOTAL, QN Routine 11/10/2024 11:50 AM EDT Gynecomastia, male PROLACTIN Routine 11/10/2024 11:50 AM EDT Gynecomastia, male FSH Routine 11/10/2024 11:50 AM EDT Gynecomastia, male TSH W/REFLEX TO FT4 Routine 11/10/2024 1 1:50 AM EDT Gynecomastia, male LH Routine 11/10/2024 11:50 AM EDT Gynecomastia, male ESTRADIOL Routine 11/10/2024 11:50 AM EDT Gynecomastia, male TESTOSTERONE, TOTAL, MALES (ADULT), IA Routine 11/10/2024 11:50 AM EDT Gynecomastia, male HIV 1/2 ANTIGEN/ANTIBODY, FOURTH GENERATION W/RFL Routine 11/24/2023 11:45 AM EDT Health care maintenance LIPID PANEL, STANDARD Routine 11/24/2023 11:45 AM EDT Health care maintenance BITEWING - SINGLE RADIOGRAPHIC IMAGE Routine 02/20/2020 12:00 AM EDT PANORAMIC RADIOGRAPHIC IMAGE Routine 07/20/2008 12:00 AM EDT from Last 3 Months or Most Recently Relevant to Health Maintenance Results * TSH W/Reflex to FT4 (11/10/2024 11:50 AM EDT) Pathologist [facility] [place] TSH reflex Free T4 1.95 0.32 - 4.0 uIU/mL [facility] Blood Venous blood specimen / Unknown 11/10/2024 11:50 AM EDT 11/10/2024 12:53 PM EDT [facility] LAB BLOOD ORDERABLES Tracy l Result Performing Organization Address [facility] Co de Phone Number [facility] [address] [place] [phone] * Prolactin (11/10/2024 11:50 AM EDT) [facility] Prolactin 4.3 2.0 - 18.0 ng/mL [facility] Comment:THIS TEST WAS PERFOR MED AT:[employer] [address] [id number] SEGURA MD Blood Venous blood specimen / Unknown 11/10/2024 11:50 AM EDT 11/10/2024 12:53 PM EDT [facility] LAB BLOOD ORDERABLES Tracy l Result Performing Organization Address [facility] Co de Phone Number [facility] [address] [place] [phone] * Estradiol (11/10/2024 11:50 AM EDT) [facility] Estradiol Ultra Sensitive 17 < OR = 29 pg/mL [facility] Comment:This test was develo ped and its analytical performancecharacteristics have been determined by [employer].It has not been cleared or approved by the FDA. This assayhas been validated pursuant to the CLIA regulations and isused for clinical purposes.THIS TEST WAS PERFORMED AT:[employer] [id number] [place] [address]HMSICSOHAM HALL MD,PHD,DIANNA Blood Venous blood specimen / Unknown 11/10/2024 11:50 AM EDT 11/10/2024 12:53 PM EDT [facility] LAB BLOOD ORDERABLES Tracy l Result Performing Organization Address City/[facility]/ZIP Co de Phone Number [facility] [address] [place] [phone] * hCG, Total, Quantitative (11/10/2024 11:50 AM EDT) Pathologist [facility] [place] HCG Quantitative <2 mIU/mL [facility] Blood Venous blood specimen / Unknown 11/10/2024 11:50 AM EDT 11/10/2024 12:53 PM EDT [facility] LAB BLOOD ORDERABLES Tracy l Result Performing Organization Address [facility] de Phone Number [facility] [address] [place] [phone] * (ABNORMAL) Testosterone, Total, males (Adult), IA (11/10/2024 11:50 AM EDT) Pathologist [facility] [place] Testosterone, Total 144(A) 250 - 1100 ng/dL [facility] Comment:For additional infor mation, please refer tohttp://education.[employer]/faq/[email or web address](This link is being provided for informational/educational purposes only.)This test was developed and its analytical performancecharacteristics have been determined by [employer] [place], [place]. It hasnot been cleared or approved by the U.S. Food and DrugAdministration. This assay has been validated pursuantto the CLIA regulations and is used for clinicalpurposes.THIS TEST WAS PERFORMED AT:[employer] [id number] [place] [address]AXJTXCAELAINE FLANAGAN MD,PHD Blood Venous blood specimen / Unknown 11/10/2024 11:50 AM EDT 11/10/2024 12:53 PM EDT [facility] LAB BLOOD ORDERABLES Tracy l Result Performing Organization Address City/[facility] Co de Phone Number [facility] [address] [place] [phone] * (ABNORMAL) LH (11/10/2024 11:50 AM EDT) Lutenizing Hormone 1.1(A) 1.5 - 9.3 mIU/mL [facility] Comment:THIS TEST WAS PERFOR MED AT:[employer] [address] [id number] SEGURA MD Blood Venous blood specimen / Unknown 11/10/2024 11:50 AM EDT 11/10/2024 12:53 PM EDT [facility] LAB BLOOD ORDERABLES Tracy l Result Performing Organization Address [facility] de Phone Number [facility] [address] [place] [phone] * FSH (11/10/2024 11:50 AM EDT) Follicle Stimulating Hormone 4.1 1.4 - 12.8 mIU/mL [facility] Comment:THIS TEST WAS PERFOR MED AT:[employer] [address] [address]JXVJXROMAN SEGURA MD Blood Venous blood specimen / Unknown 11/10/2024 11:50 AM EDT 11/10/2024 12:53 PM EDT [facility] LAB BLOOD ORDERABLES Tracy l Result Performing Organization Address City/[facility] Co de Phone Number [facility] [address] [place] [phone] * HIV-1/2 Antigen and Antibodies, Fourth Generation, with Reflexes (11/24/2023 11:45 AM EDT) HIV AB/AG Nonreactive Nonreactive [facility] Comment:HIV-1 p24 Ag and/or HIV-1/HIV-2 Ab not detected.A test result that is nonreactive does not exclude thepossibility of exposure to or infection with HIV-1 and/orHIV-2. Nonreactive results in this assay for individualswith prior exposure to HIV-1 and/or HIV-2 may be due toantigen and antibody levels that are below the limit ofdetection of this assay.The [employer] HIV Ag/Ab Combo assay result andsupplemental assay results should be interpreted inconjunction with the patient's clinical presentation,history and other laboratory results. If the results areinconsistent with clinical evidence, additional testing issuggested to confirm the result. Blood Venous blood specimen / Unknown 11/24/2023 11:45 AM EDT 11/24/2023 1:45 PM EDT us Gayatri Ron NP LAB BLOOD ORDERABLES Final Resul t [facility] [address] [place] [phone] * (ABNORMAL) Lipid Panel, Standard (11/24/2023 11:45 AM EDT) Triglycerides 345(H) <150 mg/dL [facility] Comment:Desirable Triglyceri de: less than 150 mg/dLBorderline High Triglyceride 150-199 mg/dLHigh Triglyceride: 200-499 mg/dLVery High Triglyceride: greater than or equal to 5OO mg/dL Cholesterol 263(H) <200 mg/dL [facility] Comment:Desirable Cholestero l: less than 200 mg/dLBorderline High Cholesterol: 200-239 mg/dLHigh Cholesterol: greater than 239 mg/dL LDL Cholesterol Calculated 161(H) <100 mg/dL [facility] Comment:Desirable LDL: less than 100 mg/dLNear Optimal/Above Optimal LDL: 110- 129 mg/dLBorderline High LDL: 130-159 mg/dLHigh LDL: 160-189 mg/dLVery High LDL: greater than or equal to 190 mg/dL HDL Cholesterol 33(L) >40 mg/dL [facility] Comment:Desirable HDL: great er than 40 mg/dL Note: This HDL assay may give artificially low results in patients with liver disease. Blood Venous blood specimen / Unknown 11/24/2023 11:45 AM EDT 11/24/2023 1:45 PM EDT us Gayatri Ron NP LAB BLOOD ORDERABLES Final Resul t [facility] [address] [place] [phone] from Last 3 Months or Most Recently Relevant to Health Maintenance Insurance (mailing address) [place] [address] [facility] C3 DENTAL-[facility] MEDICAID STAND ADULT * Guarantor: Sixto Dave L Account Type Relation to Patient Date of Phone Billing Address Personal/Family Self [address] (mailing address) [place] Care Teams Oil Burner Installer Relationship Specialty Start Date End Date Gayatri Ron NP [address] [place] [phone] PCP - General Family Medicine 05/22/23 Liana Barroso Poultry Feed SupervisorPhysically Impaired Teacher 01/14/23 Liana Barragan Poultry Feed SupervisorPhysically Impaired Teacher 11/15/24
[2024-12-20 16:15] LABS: MANUAL DIFF FLAG NO
[2024-12-20 16:23] LABS: Hematocrit 43.8 % (42.0-52.0); Hemoglobin 14.8 g/dl (14.0-18.0); Imm Gran Abs Auto 0.02 X10*3/uL (0.00-0.03); Imm Gran Pct Auto 0.4 % (0.0-0.4); Lymphocytes Absolute Auto 2.3 X10*3/uL (1.2-4.9); Mean Corpuscular HGB Conc 33.8 g/dl (31.0-36.0); Mean Corpuscular Hemoglobin 32.6 pg (27.0-33.0); Mean Corpuscular Volume 96.5 fL (80.0-98.0); NRBC Abs Auto 0.000 X10*3/uL (0.0-0.012); NRBC Pct Auto 0.0 /100WBC (0.0-0.2); Platelet Count 166 X10*3/uL (160-400); Red Blood Count 4.54 X10*6/uL (4.60-5.80); White Blood Count 4.8 X10*3/uL (4.8-10.8)
[2024-12-20 16:32] LABS: Alanine Aminotransferase 114 U/L (0-40); Albumin Level 4.7 g/dL (3.5-5.0); Alkaline Phosphatase 91 U/L (39-117); Anion Gap 14 (12-20); Aspartate Amino Transferase 73 U/L (5-37); Blood Urea Nitrogen 11 mg/dL (9-16); Calcium 9.6 mg/dL (8.4-10.2); Carbon Dioxide 29 mmol/L (22-29); Chloride 104 mmol/L (96-108); Estimated Glomerular Filt Rate > 60; Potassium 4.5 mmol/L (3.3-5.1); Sodium 142 mmol/L (135-145); Total Protein 7.4 g/dL (6.5-8.0)
[2024-12-20 16:33] LABS: Hemoglobin A1C 141.4392 umol/L; Total Hemoglobin (HGBA1C) 3901.3210 umol/L
== END 2024-12-20 14:57 | disposition home or self-care (01) ==
LOC: HO.HHCL 14:56
PROVIDERS: Visit Provider Nurse Practitioner Family
DX: R01.1 Cardiac murmur, unspecified (principal)
CPT/HCPCS: 36415; 80053; 83036; 85025

== ENCOUNTER → 2025-02-01 14:57 | Outpatient (REF) | payer MEDICAID, SELFPAY ==
--- NOTE | 2025-02-01 15:00 | CA_ITS ---
Transthoracic Echocardiogram Patient (Last, First, Middle): Sixto Dave, Gender: M Date of : 1985 Age: 39 Procedure Date: 02/01/2025 Procedure Type: Transthoracic Echocardiogram Location: OP Height: 170.18 cm Weight: 111.13 kg BSA: 2.20 m2 Heart Rate: bpm BP: 130 / 74 mmHg Counterintelligence Analyst: TO/RC Referring MD: Gayatri Ron NP Yeast Washer: Robson Israel MD Symptoms: MURMUR R01.1 Study Quality: Fair, contrast ECG Rhythm: Sinus Conclusions: - Essentially normal study Findings Procedure Information Contrast agent, definity, is being given per protocol without apparent complications. Left Ventricle Normal left ventricular size, thickness, and systolic function. The visually estimated ejection fraction is between 55-60%. Spectral Doppler is indicative of a normal filling pattern. Right Ventricle Normal right ventricular cavity size and systolic function. Atria Both atria are normal in size. Interatrial shunt cannot be excluded. Aortic Valve Normal aortic valve structure and function. There is no aortic valve stenosis. There is no aortic valve regurgitation. Mitral Valve Normal mitral valve structure and function. There is trace mitral valve regurgitation. There is no mitral valve stenosis. Pulmonic Valve The pulmonic valve is likely normal. There is trace pulmonic valve regurgitation. Tricuspid Valve Normal tricuspid valve structure. There is trace tricuspid valve regurgitation. The right ventricular systolic pressure is normal. The right ventricular systolic pressure is 27 mmHg. Indeterminate right atrial pressure. There is no evidence of pulmonary hypertension. Great Vessels All visible segments of the aorta are normal in size. The pulmonary artery was not well visualized. There is no dilatation of the ascending aorta measuring 3.10 cm. Venous The inferior vena cava is normal in size and collapses greater than 50% with inspiration. Pericardium/Pleural There is no evidence of pericardial effusion. Prior Study Comparison No prior study available for comparison. Measurements 2D Linear Measurements IVSd: 1.05 0.6-0.9/0.6-1.0 cm LVIDd: 5.05 3.9-5.3/4.2-5.9 cm LVIDd Index: 2.30 2.4-3.2/2.2-3.1 cm/m2 LVIDs: 3.18 2.0-3.6 cm LVPWd: 0.99 0.7-1.1 cm Ao Root: 3.30 2.1-3.5 cm LA Diam: 3.40 2.7-3.8/3.0-4.0 cm LAIDs Index: 1.55 1.5-2.3 cm/m2 LV Mass: 236.56 67-162/88-224 g LV Mass Index: 107.53 43-95/49-115 g/m2 LVOT Diam: 2.20 3.0+(-)1.3 cm 2D Systolic Function EF 4C: 51.70 >55% EF 2C: 63.50 >55% EF BiP: 58.00 >55% Mitral Valve MV Pk E: 0.74 MV PK A: 0.56 MV Decel Time: 193.00 E/A: 1.30 E'Lateral: 9.79 E'Medial: 7.62 E/E' Med: 9.60 E/E' Lat: 7.50 PHT: 57.00 MVA PHT: 3.86 Decel [place]: 3.80 Aortic Valve AoV Pk Fareed: 1.31 AoV Mn Fareed: 0.90 AoV VTI: 0.25 AoV Pk Grad: 7.00 Aov Mn Grad: 4.00 STEFANO Cont.VTI: 3.30 LVOT LVOT Pk Fareed: 1.14 LVOT Mn Fareed: 0.77 LVOT VTI: 0.22 LVOT Pk Grad: 5.00 LVOT Mn Grad: 3.00 LVOT Diam: 2.20 LVOT Area: 3.80 Diastolic Function MV Pk E: 0.74 MV Pk A: 0.56 E/A: 1.30 E'Medial: 7.62 E/E' Med: 9.60 E' Laterial: 9.79 E/E' Lat: 7.50 Right Ventricle TAPSE (mm): 22.80 TVS' Fareed: 11.50 Tricuspid Valve TR Pk Fareed: 2.44 TR Pk Grad: 24.00 RA Press: 3.00 RVSP: 27.00 Great Vessels Aorta Ao Root-2D: 3.30 2.0-3.7 cm Sinus of Valsalva: 3.30 2.0-3.5 cm Ao Asc: 3.10 2.1-3.4 cm Ao Arch: 2.90 Pulmonary Valve PV Pk Fareed: 0.98 Peak PV Grad: 4.00 Updated in Other Vendor System with Status of Final Robson Israel MD electronically signed on 02/01/2025 4:16:17 PM with status of Final
== END ==
LOC: HO.CARD 14:57
PROVIDERS: Visit Provider Nurse Practitioner Family
DX: R01.1 Cardiac murmur, unspecified (principal)
CPT/HCPCS: 93306; Q9957

== ENCOUNTER → 2025-02-01 15:00 | Outpatient (BNV) | payer MEDICAID, SELFPAY | PROVIDERS: Visit Provider Internal Medicine Cardiovascular Disease | DX: R01.1 Cardiac murmur, unspecified (principal) | CPT/HCPCS: 93306 ==

== ENCOUNTER 2025-02-14 13:03 | Outpatient (REF) | payer MEDICAID, SELFPAY ==
--- OUTSIDE RECORDS SUMMARY | 2025-02-14 17:30 | XMS_ITS | Clinical Summary ---
Author Organization [employer] Address [address] [facility] [address] [place] [address] Care Team Providers Care Vocational Aide Name Role Phone Gayatri Ron NP Primary Care Provider [phone] Allergies No known active allergies Medications benztropine (Cogentin) 1 MG tablet TAKE 1 TABLET BY MOUTH EVERYDAY AT BEDTIME 3 Active FLUoxetine (PROzac) 20 MG capsule TAKE 1 CAPSULE BY MOUTH EVERY DAY IN THE MORNING 3 Active OLANZapine (ZyPREXA) 10 MG tablet TAKE 1 TABLET BY MOUTH EVERYDAY AT BEDTIME 3 Active risperiDONE (RisperDAL) 4 MG tablet TAKE 1 TABLET BY MOUTH EVERYDAY AT BEDTIME 3 Active methadone (Dolophine) 10 MG/ML solution Take by mouth. Take 120mg once daily Active nicotine (Nicoderm CQ) 14 MG/24HR patch Place 1 patch on the skin 1 (one) time each day at the same time. 30 patch 4 Active nicotine (Nicoderm, Step 2) 14 MG/24HR patch PLACE 1 PATCH ON THE SKIN 1 TIME EACH DAY AT THE SAME TIME. 28 patch 5 Active Acetaminophen Extra Strength 500 MG tabletIndicati ons:Gynecomast ia, male TAKE 1 TABLET (500 MG) BY MOUTH EVERY 6 (SIX) HOURS IF NEEDED FOR MILD PAIN FOR UP TO 10 DAYS. 30 tablet 5 Active acetaminophen (Tylenol Extra Strength) 500 MG tabletIndicati ons:Gynecomast ia, male Take 1 tablet (500 mg) by mouth every 6 (six) hours if needed for mild pain for up to 10 days. 30 tablet 5 025 Discontinued nicotine (Nicoderm CQ) 14 MG/24HR patch Place 1 patch on the skin 1 (one) time each day at the same time. 30 patch 5 025 Discontinued Active Problems Problem Noted Date Diagnosed Date Murmur 12/20/2024 Assessment & Plan (01/18/2025 9:40 AM EDT): Echo ordered Alcohol use disorder 12/20/2024 Tobacco use disorder 11/24/2023 Assessment & Plan (01/18/2025 9:40 AM EDT): Trial patch, Assessment & Plan (11/24/2023 6:33 PM EDT): [...] or night sweats, neg x-ray Psychotic disorder (CMS/HCC) 07/11/2021 Assessment & Plan (11/24/2023 6:32 PM EDT): Currently on injectable medication, in psychiatric care at [facility], doing well today denies any concerns Cocaine abuse 02/02/2015 Assessment & Plan (11/24/2023 6:32 PM EDT): 5 months of sobriety Hand joint pain 02/02/2015 Infected ulcer of skin (CMS/HCC) 02/02/2015 Nondependent opioid abuse 02/02/2015 Assessment & Plan (11/24/2023 6:32 PM EDT): On 10 mg of methadone at outside clinic, aware or crs. Resolved Problems Problem Noted Date Diagnosed Date Resolved Date Class 1 obesity 08/13/2022 11/09/2024 Encounters Date Type Department Care Team Description 01/31/2025 Telephone [facility] MEDICINE [address] [place] [id number] Gayatri Ron NP No Show 01/30/[address] [address] Gayatri Ron NP CHART PREP 01/17/[address] [address] Christin Flores CNP Gynecomastia, male 01/16/2025 Refill [facility]INE [address] [place] [phone] Gayatri Ron NP 12/20/2024 2:30 PM EDT Office Visit [address] [address] Gayatri Ron NP Tobacco use disorder (Primary Dx); Murmur; Alcohol use disorder 12/20/2024 Travel 12/01/2024 2:00 PM EDT Clinical Support [address] [address] Carissa Carmona, VEDA Elevated BP without diagnosis of hypertension 12/01/2024 Travel 11/15/[address] [address] Gayatri Ron NP Care Coordination (ICP Care Plan ) 11/14/2024 Results Follow-Up [address] [address] Christin Flores CNP Testosterone, Total, males (Adult), IA, LH, TSH W/Reflex to FT4, Additional followed-up results: 3 from Last 3 Months Immunizations Immunization Administration [...] 12/20/2024 2:27 PM EDT Plan of Treatment Health Maintenance Due Date Last Done Comments [...] X-Ray: Bitewings 02/20/2021 02/20/2020 COVID-19 Vaccine ( season) 2024 Influenza Vaccine (#1) 2024 02/15/2022 Alcohol/Substance Use Screening 11/09/2025 11/09/2024 Disability Screening 11/09/2025 11/09/2024 Depression Screening 12/20/2025 12/20/2024, 08/26/20 25 SDOH Screening 12/20/2025 12/20/2024 Tobacco Screening [...] Procedure Name Priority Date/Time Associated Diagnosis Comments HEMOGLOBIN A1C Routine 12/20/2024 3:03 PM EDT Murmur CBC WITH AUTO DIFFERENTIAL Routine 12/20/2024 3:03 PM EDT Murmur COMPREHENSIVE METABOLIC PANEL Routine 12/20/2024 3:03 PM EDT Murmur HIV 1/2 ANTIGEN/ANTIBODY, FOURTH GENERATION W/RFL Routine 11/24/2023 11:45 AM EDT Health care maintenance LIPID PANEL, STANDARD Routine 11/24/2023 11:45 AM EDT Health care maintenance BITEWING - SINGLE RADIOGRAPHIC IMAGE Routine 02/20/2020 12:00 AM EDT PANORAMIC RADIOGRAPHIC IMAGE Routine 07/20/2008 12:00 AM EDT from Last 3 Months or Most Recently Relevant to Health Maintenance Results * (ABNORMAL) CBC auto differential (12/20/2024 3:03 PM EDT) White Blood Count 4.8 4.8 - 10.8 X10*3/uL [facility] Red Blood Count 4.54(L) 4.60 - 5.80 X10*6/uL [facility] Hemoglobin 14.8 14.0 - 18.0 g/dl [facility] Hematocrit 43.8 42.0 - 52.0 % [facility] Mean Corpuscular Volume 96.5 80.0 - 98.0 fL [facility] Mean Corpuscular Hemoglobin 32.6 27.0 - 33.0 pg [facility] Mean Corpuscular HGB Conc 33.8 31.0 - 36.0 g/dl [facility] Red Cell Distribution Width 11.9 11.0 - 16.0 % [facility] Platelet Count 166 160 - 400 X10*3/uL [facility] Mean Platelet Volume 11.0 9.4 - 12.4 fL [facility] Neutrophils Percent Auto 38.2(L) 45 - 73 % [facility] Imm Gran Pct Auto 0.4 0.0 - 0.4 % [facility] Lymphocytes Percent Auto 47.2(H) 20 - 40 % [facility] Monocytes Percent Auto 9.7 2 - 11 % [facility] Eosinophils Percent Auto 3.5 0 - 4 % [facility] Basophils Percent Auto 1.0 0 - 2 % [facility] NRBC Pct Auto 0.0 0.0 - 0.2 /100WBC [facility] Neutrophils Absolute Auto 1.8(L) 2.0 - 8.3 x10*3/uL [facility] Imm Gran Abs Auto 0.02 0.00 - 0.03 X10*3/uL [facility] Lymphocytes Absolute Auto 2.3 1.2 - 4.9 X10*3/uL [facility] Monocytes Absolute Auto 0.5 0.1 - 1.2 X10*3/uL [facility] Eosinophils Absolute Auto 0.2 0.0 - 0.4 X10*3/uL [facility] Basophils Absolute Auto 0.1 0.0 - 0.2 X10*3/uL [facility] NRBC Abs Auto 0.000 0.0 - 0.012 X10*3/uL [facility] Blood Venous blood specimen / Unknown 12/20/2024 3:03 PM EDT 12/20/2024 3:57 PM EDT us Gayatri Ron HOTSHOT SUPERINTENDENT LAB BLOOD ORDERABLES Final Resul t Performing Organization Address [facility] de Phone Number [facility] [address] [place] [address] [phone] * Hemoglobin A1c (12/20/2024 3:03 PM EDT) Hemoglobin A1c 5.5 <6.0 % [facility] Comment:Hemoglobin A1C Refer ence Range Adults: 4.8 - 6.0 % Non diabetic: < 6.0 % Goal: < 7.0 %Additional Action Suggested: > 8.0 %Note: Hemoglobin A1c results are invalid for patients with abnormal amounts of HbF. Blood transfusions may impact the HbA1c concentration in the patient sample. Estimated Average Glucose 111 mg/dL [facility] Comment:eAG = Estimated ave rage glucose which is %A1C expressed asaverage glucose, using the formula of the [id number] Glucose study (ADAG), Diabetes Care, Vol.31,#8,Nov. 2007 Blood Venous blood specimen / Unknown 12/20/2024 3:03 PM EDT 12/20/2024 3:57 PM EDT us Gayatri Ron HOTSHOT SUPERINTENDENT LAB BLOOD ORDERABLES Final Resul t Performing Organization Address [facility] Co de Phone Number [facility] [address] [place] [address] [phone] * (ABNORMAL) Comprehensive Metabolic Panel (12/20/2024 3:03 PM EDT) Sodium 142 135 - 145 mmol/L [facility] Potassium 4.5 3.3 - 5.1 mmol/L [facility] Chloride 104 96 - 108 mmol/L [facility] Carbon Dioxide 29 22 - 29 mmol/L [facility] Anion Gap 14 12 - 20 [facility] Urea Nitrogen (BUN) 11 9 - 16 mg/dL [facility] Creatinine, Serum 0.82 0.5 - 1.4 mg/dL [facility] Estimated Glomerular Filt Rate >60 [facility] Comment:Chronic Kidney Disea se: Estimated GFR < 60 mL/min/[id number] Kidney Disease: Estimated GFR < 15 mL/min/1.73m2 Glucose 114 60 - 115 mg/dL [facility] Calcium 9.6 8.4 - 10.2 mg/dL [facility] Bilirubin, Total 0.3 0.0 - 1.0 mg/dL [facility] Aspartate Amino Transferase 73(H) 5 - 37 U/L [facility] Alanine Aminotransferase 114(H) 0 - 40 U/L [facility] Total Protein 7.4 6.5 - 8.0 g/dL [facility] Albumin Level 4.7 3.5 - 5.0 g/dL [facility] Alkaline Phosphatase 91 39 - 117 U/L [facility] Blood Venous blood specimen / Unknown 12/20/2024 3:03 PM EDT 12/20/2024 3:57 PM EDT us Gayatri Ron HOTSHOT SUPERINTENDENT LAB BLOOD ORDERABLES Final Resul t [facility] [address] [place] [phone] * HIV-1/2 Antigen and Antibodies, Fourth Generation, with Reflexes (11/24/2023 11:45 AM EDT) HIV AB/AG Nonreactive Nonreactive [facility] Comment:HIV-1 p24 Ag and/or HIV-1/HIV-2 Ab not detected.A test result that is nonreactive does not exclude thepossibility of exposure to or infection with HIV-1 and/orHIV-2. Nonreactive results in this assay for individualswith prior exposure to HIV-1 and/or HIV-2 may be due toantigen and antibody levels that are below the limit ofdetection of this assay.The [employer] HIV Ag/Ab Combo assay result andsupplemental assay results should be interpreted inconjunction with the patient's clinical presentation,history and other laboratory results. If the results areinconsistent with clinical evidence, additional testing issuggested to confirm the result. Blood Venous blood specimen / Unknown 11/24/2023 11:45 AM EDT 11/24/2023 1:45 PM EDT us Gayatri Ron NP LAB BLOOD ORDERABLES Final Resul t [facility] [address] [place] [phone] * (ABNORMAL) Lipid Panel, Standard (11/24/2023 11:45 AM EDT) Triglycerides 345(H) <150 mg/dL [facility] Comment:Desirable Triglyceri de: less than 150 mg/dLBorderline High Triglyceride 150-199 mg/dLHigh Triglyceride: 200-499 mg/dLVery High Triglyceride: greater than or equal to 5OO mg/dL Cholesterol 263(H) <200 mg/dL [facility] Comment:Desirable Cholestero l: less than 200 mg/dLBorderline High Cholesterol: 200-239 mg/dLHigh Cholesterol: greater than 239 mg/dL LDL Cholesterol Calculated 161(H) <100 mg/dL [facility] Comment:Desirable LDL: less than 100 mg/dLNear Optimal/Above Optimal LDL: 110- 129 mg/dLBorderline High LDL: 130-159 mg/dLHigh LDL: 160-189 mg/dLVery High LDL: greater than or equal to 190 mg/dL HDL Cholesterol 33(L) >40 mg/dL [facility] Comment:Desirable HDL: great er than 40 mg/dL Note: This HDL assay may give artificially low results in patients with liver disease. Blood Venous blood specimen / Unknown 11/24/2023 11:45 AM EDT 11/24/2023 1:45 PM EDT us Gayatri Ron NP LAB BLOOD ORDERABLES Final Resul t [facility] [address] [place] [address] [phone] from Last 3 Months or Most Recently Relevant to Health Maintenance Insurance [facility] C3 DENTAL-[facility] MEDICAID STAND ADULT Care Teams Vocational Aide Relationship Specialty Start Date End Date Gayatri Ron NP [address] [place] [address] PCP - General Family Medicine 05/22/23 Liana Barroso PathologistHospice Manager 01/14/23 Liana Barragan PathologistHospice Manager 11/15/24
--- OUTSIDE RECORDS SUMMARY | 2025-02-14 17:30 | XMS_ITS | Encounter Summary ---
Author Organization [employer] Address [address] [facility] [address] [place] [address] Care Team Providers Care Clean Out Driller Helper Name Role Phone Gayatri Ron NP Primary Care Provider [phone] Encounter Details Date Type Department Care Team (Late st Contact Info) Description 04/29/[address] [facility] [address] [place] [address] Gulshan Simpson, MoisésD Social History Tobacco Use Types Packs/Day Years Used Date Smoking Tobacco: Unknown Sex and Gender Information Value Date Recorded Sex Assigned at Male 02/24/2022 10:20 AM EDT Legal Sex Male 10:20 AM EDT Gender Identity Male 02/24/2022 10:20 AM EDT Sexual Orientation Straight 02/24/2022 10 :20 AM EDT documented as of this encounter Plan of Treatment Not on file documented as of this encounter Visit Diagnoses Not on filedocumented in this encounter Care Teams Clean Out Driller Helper Relationship Specialty Start Date End Date Gayatri Ron NP [address] [place] [address] PCP - General Family Medicine 05/22/23 Liana Barroso Wellhead PumperSteersman 01/14/23 Liana Barragan Wellhead PumperSteersman 11/15/24 documented as of this encounter
== END 2025-02-14 13:04 | disposition home or self-care (01) ==
LOC: HO.LAB 13:03
PROVIDERS: Visit Provider Nurse Practitioner Family
DX: E29.1 Testicular hypofunction (principal); R35.1 Nocturia; Z13.89 Encounter for screening for other disorder
CPT/HCPCS: 51798; 81003; 88112; 99212

== ENCOUNTER 2025-02-14 13:03 | Outpatient (AMB) | payer MEDICAID, SELFPAY ==
--- NOTE | 2025-02-14 13:12 | MHC.OFFVIS ---
Intake Visit Reasons: low testosterone Intake Note: Patient is present for LOW TESTOSTRONE Urology Medication:NONE Antibiotic Allergy:NONE Blood Thinner:NONE TODAY'S PVR:0ML'S Labor And Employment Paralegal Required: Yes Labor And Employment Paralegal Services: Labor And Employment Paralegal Present Labor And Employment Paralegal Name: Jose Rosado Allergies SEAFOOD Allergy (Unknown, Uncoded 02/14/25 13:51) HIVES Medication List - Last Reconciled 02/14/25 by ROSALINDA Cardona benztropine 1 mg PO BEDTIME 30 days epinephrine (EpiPen) 0.3 mg (0.3 mL) IM Q4H PRN fluoxetine 40 mg PO DAILY 30 days methadone 100 mg PO DAILY paliperidone palmitate (Invega Sustenna) 156 mg IM Q30D risperidone (Risperdal) 1 mg PO DAILY PRN 30 days HPI Comments Details: Sixto is a very pleasant 39-year-old Faroese-speaking male patient of Dr. Flores. 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 He presents to the office today as a new patient for hypogonadism. In discussion with the patient today reports having followed up with his PCP for gynecomastia at which time his testosterone was checked and noted to be low and recommendations were made for urology referral for further assessment evaluation. These results were reviewed and communicated with the patient today. Testosterone: 11/18 144 LH: 11/18 1.1 When asked he does report a previous history of recreational drug use of heroin, cocaine, and crack. He reports he has been in remission over the last 15 months. He reports being on methadone. He also reports noting episodes of nocturia. When asked he does report a history of fatigue as well as snoring. We did discussed correlation of potential sleep apnea with nocturia. He denies urinary urgency, urinary frequency, incontinence, hematuria, dysuria, foul smelling urine, changes to urinary stream, flank pain, fever, and or chills. We did discussed at length potential causes of hypogonadism as well as nocturia. We discussed obtaining sleep study as well as further hypogonadism labs for further assessment evaluation. In office urinalysis results reviewed with the patient today. PVR 0 mLs All questions were answered. [facility] Medical History Salmonella enteritis Bacteremia Opioid use disorder, moderate, in early remission, on maintenance therapy Hepatitis Latent tuberculosis Surgical History No pertinent past surgical history Social History Household Members: Unknown / Unable to assess Housing: Unknown / Unable to assess Do you presently have visiting nurse or other home services: No Patient Tobacco Use Status: Refuse Tobacco use screen Tobacco use type: Cigarette Cigarette Packs Per Day: 1 Cigarettes Per Day: 20.0 e-Cigarette/Vaping Use: Currently Using Second Hand Smoke Exposure: Yes Substance Use Type: Crack/Cocaine, Marijuana and Opiates service: No Current occupational status: unemployed Sexual orientation: Straight/Heterosexual Review of Systems Const All systems reviewed & are unremarkable except as noted in HPI and below Physical Exam Const General: cooperative, comfortable, no acute distress, well developed, alert and awake Orientation/consciousness: patient oriented x3 Limitations: language barrier HEENT Head: Yes normal to inspection, Yes normocephalic and Yes atraumatic Ears: hearing grossly normal bilaterally Eyes General: appearance normal, both eyes and all related structures Neck Neck: Yes normal visual inspection and Yes trachea midline Chest Chest palpation & inspection: normal inspection of the chest Resp Effort & Inspection: normal respiratory effort and able to speak in complete sentences Cardio Rate: regular rate GI Inspection: Yes normal to inspection General: Yes no CVA tenderness Back/Spine/Pelvis Back: no CVA tenderness Skin General skin exam: no rashes or lesions noted Neuro General: patient oriented x3 Extrem General: Yes normal to inspection Psych Appearance: grossly normal and well kempt Mental Status: mental status grossly normal Speech and movement: Normal speech and movement present and Clear speech present Affect: normal affect Attitude: cooperative Thought process: Normal thought process present Thought content: Normal thought content present Insight: Fair insight present (Psych) Judgement: Fair judgement present (Psych) Office Procedures Post Void Residual Post Residual Void Post Void Residual (PVR): 0 [id number] Void Residual by ultrasound Results AMB Urinalysis, Automated UA Leukoctes 0 Bryan/uL Last Edit by YOKO Guerrero on 02/14/25 13:28 UA Nitrite Negative Last Edit by YOKO Guerrero on 02/14/25 13:28 UA Urobilinogen 0.2 mg/dL Last Edit by YOKO Guerrero on 02/14/25 13:28 UA Protein 15 mg/dL Last Edit by [facility] on 02/14/25 13:28 UA pH 6.0 Last Edit by Keli Flor [facility] on 02/14/25 13:28 UA Blood 10 Daniel/uL Last Edit by Keli Flor [facility] on 02/14/25 13:28 UA Specific Basco 1.020 Last Edit by Keli Flor [facility] on 02/14/25 13:28 UA Ketone Negative Last Edit by Keli Flor [facility] on 02/14/25 13:28 UA Bilirubin 0 mg/dL Last Edit by Keli Flor [facility] on 02/14/25 13:28 UA Glucose 0 mg/dL Last Edit by Keli Flor [facility] on 02/14/25 13:28 Results Reviewed Results Reviewed: Laboratory Last Values Urine pH (Auto) 6.0 02/14/25 13:17 Specific Basco (Auto) 1.020 02/14/25 13:17 Urine Protein (Auto) 15 mg/dL 02/14/25 13:17 Glucose (UA)(Auto) 0 mg/dL 02/14/25 13:17 Urine Ketones (Auto) Negative 02/14/25 13:17 Urine Blood (Auto) 10 Daniel/uL 02/14/25 13:17 Urine Nitrite (Auto) Negative 02/14/25 13:17 Urine Bilirubin (Auto) 0 mg/dL 02/14/25 13:17 Urine Urobilinogen (Auto) 0.2 mg/dL 02/14/25 13:17 Leukocyte Esterase (Auto) 0 Bryan/uL 02/14/25 13:17 Assessment & Plan Assessment & Plan (1) Hypogonadism in male: Code(s): E29.1 - Testicular hypofunction Category: Medical (2) Nocturia: Code(s): R35.1 - Nocturia Category: Medical Plan In office urinalysis results reviewed with the patient today; as noted above. PVR 0 mL. Recent LH and testosterone results reviewed with the patient today; as noted above. We discussed potential causes of nocturia as well as hypogonadism. Will obtain FSH, LH, estradiol, prolactin, testosterone, free testosterone, and PSA for further assessment evaluation. Will obtain sleep study for further assessment evaluation. All questions were answered. We did discussed lifestyle modifications to assist with these urological conditions as well as overall health and well-being. Follow-up in 1-3 months with labs and sleep study to be completed prior or sooner with any issues, concerns, and or questions. Orders: Orders AMB Urinalysis Automated Today Z13.9 - Encounter for screening, unspecified Urine Cytology Today R31.29 - Other microscopic hematuria US retroperitoneal comp Today R35.1 - Nocturia Lutenizing Hormone Today E29.1 - Testicular hypofunction Prolactin Today E29.1 - Testicular hypofunction Sex Hormone Binding Globulin Today E29.1 - Testicular hypofunction Estrad Free (Tot Ultra + Free) Today E29.1 - Testicular hypofunction RT home sleep study Today R06.83 - Snoring, R35.1 - Nocturia Prostate Specific Antigen Today E29.1 - Testicular hypofunction Testosterone, Free/Total Today E29.1 - Testicular hypofunction Thyroid Stimulating Hormone Today E29.1 - Testicular hypofunction Patient Instructions: The patient had an opportunity to ask questions regarding the treatment plan. All questions were answered. Physical exam, labs, and imaging were discussed and reviewed in detail. As well as risks, benefits, and discussion of treatment choices. No major barriers to understanding were identified. The patient expressed understanding and agreement with the above treatment plan. The patient was made aware they should contact our office by phone for worsening of their current condition, the appearance of new symptoms, or with any questions or concerns. Compliance is encouraged with any medications and follow up testing that is ordered. It is a privilege to be allowed the opportunity to participate in? your urological care.? Again, if you have any questions or concerns If you have any questions or concerns please do not hesitate to contact me. The office is [phone]. This note is constructed using voice recognition software. While every effort has been made to ensure accuracy pharmacist in charge errors may have been included. Yours sincerely, ROSALINDA Cardona Coding Level of Care Code New Pt Level 3 (86488) Diagnoses Hypogonadism in male E29.1 Nocturia R35.1 CPT Codes Post Residual Void - PVR CPT Code: 80912-Sbcm Void Residual by ultrasound ([id number])
== END 2025-02-14 14:03 | disposition home or self-care (01) ==
LOC: HO.HUSH 13:05
PROVIDERS: Visit Provider Nurse Practitioner Family
DX: E29.1 Testicular hypofunction (principal); R35.1 Nocturia; Z13.9 Encounter for screening, unspecified
CPT/HCPCS: 99203